=== PATIENT | female | born 1960 | race Caucasian/White ===

== ENCOUNTER → 2018-01-02 09:05 | Outpatient (CLI) | payer MEDICARE, SELFPAY ==
--- NOTE | 2018-01-02 09:08 | XR_ITS ---
XR DEXA axial skeleton HISTORY: ITS.REASON: POST MENOPAUSAL ORDERING PHYSICIAN: Brodie Castro MD PATIENT AGE: 57 years COMPARISON: 07/31/2013 FINDINGS: The BMD measured at the Total left femoral neck is 0.596 g/cm squared with a T score of -3.3. This is considered Osteoporotic according to the World Health Organization criteria. Fracture risk is High. Treatment is advised. The L1 L4 density has a T score of -1.9 and has decreased by 12.5% compared to the previous study. The density of the hips has decreased by 14.5% IMPRESSION: Osteoporosis with high fracture risk. Recommend treatment and follow-up exam December 2018.
== END ==
PROVIDERS: Family Provider Internal Medicine Adolescent Medicine; PCP Internal Medicine Adolescent Medicine; Visit Provider Internal Medicine Adolescent Medicine
DX: Z78.0 Asymptomatic menopausal state (principal); Z13.820 Encounter for screening for osteoporosis
CPT/HCPCS: 77080

== ENCOUNTER → 2018-02-14 16:33 | Outpatient (CLI) | payer MEDICARE, SELFPAY ==
--- NOTE | 2018-02-14 | XR_ITS ---
XR finger LT min 2V CLINICAL INDICATION: Posttraumatic pain ITS.REASON: PAIN ORDERING PHYSICIAN: Brodie Castro MD PATIENT AGE: 57 years Comparison: None FINDINGS: There is an avulsion fracture involving the dorsal and proximal aspect of the distal phalanx of the fourth digit. The fracture fragment measures approximately 3 mm and is displaced dorsally and proximally x 2 mm. IMPRESSION: Mildly displaced avulsion fracture dorsal and proximal aspect of the distal phalanx of the fourth digit
--- NOTE | 2018-02-14 | XR_ITS ---
XR hand LT min 3V HISTORY: ITS.REASON: PAIN ORDERING PHYSICIAN: Brodie Castro MD PATIENT AGE: 57 years COMPARISON: None FINDINGS: There is an avulsion fracture involving the dorsal and proximal aspect of the distal phalanx of the fourth digit. The fracture fragment measures approximately 2.6 mm and is displaced dorsally and proximally x 2 mm. IMPRESSION: Mildly displaced avulsion fracture dorsal and proximal aspect of the distal phalanx of the fourth digit
== END ==
PROVIDERS: PCP Internal Medicine Adolescent Medicine; Visit Provider Internal Medicine Adolescent Medicine
DX: M79.642 Pain in left hand (principal)
CPT/HCPCS: 73130; 73140

== ENCOUNTER → 2018-03-09 13:02 | Outpatient (CLI) | payer MEDICARE, SELFPAY ==
--- NOTE | 2018-03-09 13:05 | XR_ITS ---
XR finger LT min 2V Ordering Physician: Anibal Arteaga MD Patient Age: 57 years: Female HISTORY: ITS.REASON: left ring finger/ XRAYS IN SPLINT!! TECHNIQUE: 3 views left fourth finger COMPARISON February 14, 2018 FINDINGS We again see a fracture off the dorsal proximal corner of the distal phalanx fourth finger. The mild distraction at the fracture zone is less evident on today's study. , As seen on the lateral view. Frontal projection unremarkable. IMPRESSION: . corner fracture from the dorsal proximal corner of the distal phalanx fourth digit is again seen. The Mild distraction appears appears slightly less evident today than previous February 14 study
== END ==
PROVIDERS: PCP Internal Medicine Adolescent Medicine; Visit Provider Orthopaedic Surgery
DX: M20.012 Mallet finger of left finger(s) (principal)
CPT/HCPCS: 73140

== ENCOUNTER → 2018-04-06 13:21 | Outpatient (CLI) | payer MEDICARE, SELFPAY ==
--- NOTE | 2018-04-06 13:27 | MR_ITS ---
MR head/brain wo/w con HISTORY: Follow-up multiple sclerosis ITS.REASON: MULTIPLE SCLEROSIS ORDERING PHYSICIAN: Poly Aguirre PATIENT AGE: 57 years Comparison: 01/30/2014 TECHNIQUE: Standard multiplanar multiecho sequences are performed without and with gadolinium enhancement. FINDINGS: No midline shift, mass effect, intracranial hemorrhage, or hydrocephalus. No evidence of acute infarction. There are multiple T2 white matter hyperintensities in the periventricular and subcortical region some of which are oriented perpendicular to the long axis of the lateral ventricles consistent with demyelinating plaques from multiple sclerosis. There are several foci of increased T2 signal/plaques that have developed in the with interval. New areas of increased periventricular T2 signal are noted along the atria of the lateral ventricles on both sides and in the deep white matter of the left occipital lobe. These areas do not enhance and do not demonstrate restricted diffusion that have developed in the interval. One in the central aspect of the left centrum semiovale measuring 14 mm and one in the anterior aspect of the left centrum semiovale measuring 5 mm. These areas do not demonstrate contrast enhancement or restricted diffusion. A small subcortical T2 white matter hyperintensities present in the left frontal lobe near the vertex not readily apparent on the previous exam. No obvious corpus callosal lesions or mid brain lesions. The upper cervical cord has an unremarkable appearance. Other areas are unchanged. There is a new small rounded area of increased T2 signal in the subcortical region of the left parieto-occipital junction which measures 4 mm. This has mixed signal intensity 2 punctate foci of increased T1 signal and increased T2 signal with a small peripheral rim like area of decreased T2 signal and may represent a small hemorrhagic lesion. This does not demonstrate any contrast enhancement and was not present on the previous exam. This does not have a typical appearance for a demyelinating plaque. No acute infarction. The cerebellopontine angles, cerebellum, and brainstem are unremarkable. No mastoid effusion or sinus air-fluid level. The pituitary has an unremarkable appearance. IMPRESSION: 1. The findings are compatible with multiple sclerosis which has progressed since the previous exam. There are several new plaques which is developed in the interval mainly in the left centrum semiovale and in the periventricular white matter of the occipital lobes and in the deep white matter of the left occipital lobe. These areas do not enhance nor demonstrate restricted diffusion. 2. Unusual 4 mm lesion in the subcortical area of the left parietal occipital temporal junction. Etiology is indeterminate. May be related to a small hemorrhagic lesion. Consider CT scan for further evaluation to determinate there is any calcification at this area. CT angiography may also be of further value is a small aneurysm is a consideration.
== END ==
PROVIDERS: Family Provider Internal Medicine Adolescent Medicine; PCP Internal Medicine Adolescent Medicine; Visit Provider Psychiatry & Neurology Neurology
DX: G35 Multiple sclerosis (principal)
CPT/HCPCS: 70553; A9576

== ENCOUNTER → 2018-04-21 09:42 | Outpatient (CLI) | payer MEDICARE, SELFPAY ==
--- NOTE | 2018-04-21 09:46 | XR_ITS ---
XR finger LT min 2V CLINICAL INDICATION: Follow-up fracture ITS.REASON: LEFT ring finger/ xrays out of splint! ORDERING PHYSICIAN: Anibal Arteaga MD PATIENT AGE: 57 years Comparison: 03/09/2018 FINDINGS: Previously noted avulsion fracture of the proximal and dorsal aspect of the distal phalanx shown healing. Fracture line is not visible on these images. IMPRESSION: Healed avulsion fracture at the distal phalanx of the ring finger with good alignment
== END ==
PROVIDERS: PCP Internal Medicine Adolescent Medicine; Visit Provider Orthopaedic Surgery
DX: M20.012 Mallet finger of left finger(s) (principal)
CPT/HCPCS: 73140

== ENCOUNTER → 2018-04-27 08:20 | Outpatient (CLI) | payer MEDICARE, SELFPAY ==
--- NOTE | 2018-04-27 08:22 | US_ITS ---
US liver HISTORY: ITS.REASON: ELEVATED LIVER ENZYMES ORDERING PHYSICIAN: Brodie Castro MD PATIENT AGE: 57 years COMPARISON: None FINDINGS: PANCREAS:Unremarkable. No obvious mass or abnormal fluid collection. No ductal dilatation LIVER:There is a 2.4 cm cyst involving the left lobe of the liver laterally slightly increased in size previously measuring [address] scan of 06/22/2016. There is appropriate direction of blood flow within the portal vein. No other liver lesions are evident. The portal vein has an unremarkable appearance. No intrahepatic biliary dilatation. Common bile duct is upper normal 6 mm. RIGHT KIDNEY:Unremarkable. Normal size and echogenicity. No hydronephrosis GALLBLADDER:No gallstones, gallbladder wall thickening, pericholecystic fluid, or biliary dilatation. IMPRESSION: Hepatic cyst at 2.4 cm otherwise negative limited abdominal ultrasound
== END ==
PROVIDERS: Family Provider Internal Medicine Adolescent Medicine; PCP Internal Medicine Adolescent Medicine; Visit Provider Internal Medicine Adolescent Medicine
DX: R74.8 Abnormal levels of other serum enzymes (principal)
CPT/HCPCS: 76705

== ENCOUNTER → 2018-05-01 09:03 | Outpatient (CLI) | payer MEDICARE, SELFPAY ==
--- NOTE | 2018-05-01 09:05 | MM_ITS ---
MM Dig screening mamm BI w/CAD CAD Screening COMPARISON: Digital mammograms with CAD 04/25/2017 INDICATION: There is a history of breast cancer patient's paternal cousins and aunts.. The patient has had a previous lumpectomy right breast for malignancy. TECHNIQUE: Standard CC and MLO images were obtained. R2 CAD reviewed. FINDINGS: Prominent heterogenic fibroglandular densities are seen throughout both breast somewhat lessening the sensitivity of mammography. There is minimal architectural distortion central portion of the right breast secondary to previous lumpectomy. There are few benign-appearing calcifications in each breast. There is no suspicious lesion and no suspicious microcalcifications. IMPRESSION: Dense parenchymal pattern with no suspicious lesion seen BI-RADS Category: 2 Benign Finding(s) RECOMMENDED FOLLOW-UP: 1YR - 1 YEAR FOLLOW-UP (A letter has been sent to the patient regarding results of the study.)
== END ==
PROVIDERS: Family Provider Internal Medicine Adolescent Medicine; PCP Internal Medicine Adolescent Medicine; Visit Provider Internal Medicine Adolescent Medicine
DX: Z12.31 Encounter for screening mammogram for malignant neoplasm of breast (principal); N64.4 Mastodynia
CPT/HCPCS: 77067

== ENCOUNTER → 2018-08-10 10:14 | Outpatient (CLI) | payer MEDICARE, SELFPAY ==
--- NOTE | 2018-08-10 10:16 | NM_ITS ---
History and Indications: Chest pain, fatigue, tobacco use. Procedure: Patient exercised on Zach protocol 7 minutes and 30 seconds, resting heart rate was 64 bpm resting blood pressure 117/57, with exercise maximum heart rate achieved was 1 44 bpm which is greater than 85% of the maximum predicted heart rate and a blood pressure was 140/74. Test was started shortness of breath patient denied any complained of chest pain. Patient has good exercise capacity achieved 10.1mets of workload on treadmill, the blood pressure response to exercise was adequate. Electrocardiogram: Resting electrocardiogram showed sinus rhythm, with exercise there is less than 1.[address] segment depression noted from the baseline EKG. The EKG portion of the exercise Myoview is negative for ischemia. Cardiac stress and resting SPECT images: Cardiac stress and resting SPECT images were obtained using technetium 99 Myoview 2.6 mCi stress and 10.0 mCi at rest. Gated SPECT further analysis of segmental wall motion and calculation of ejection fraction also done. Cardiac stress and resting SPECT images show uniform myocardial activity without segmental perfusion abnormality, computer derived ejection fraction is 65% with no regional wall motion abnormality, right ventricle is normal size and contractility. Conclusion: 1. The EKG portion of the exercise Myoview is negative for ischemia, patient has good exercise capacity achieved 10.1mets of workload on treadmill, the blood pressure response to exercise was adequate, there was no exercise-induced chest discomfort. 2. No scintigraphic evidence of reversible ischemia seen at this level of exercise, computer derived ejection fraction is 65% with no regional wall motion abnormality, right ventricle is normal size and contractility. 3. Normal exercise Myoview study.
--- NOTE | 2018-08-10 12:55 | HMH.ITSHM ---
Current Home Medications as stated by this patient Lucille Hernández or workforce services representative. []fluoxetine dimethyl fumarate
== END ==
PROVIDERS: PCP Internal Medicine Adolescent Medicine; Visit Provider Internal Medicine
DX: R06.00 Dyspnea, unspecified (principal); R00.2 Palpitations; R07.2 Precordial pain; R07.9 Chest pain, unspecified
CPT/HCPCS: 78452; 93017; 93306; A9502

== ENCOUNTER → 2018-08-23 12:05 | Outpatient (CLI) | payer MEDICARE, SELFPAY ==
--- NOTE | 2018-08-23 12:08 | XR_ITS ---
XR chest 2V HISTORY: ITS.REASON: chest pain, smoker ORDERING PHYSICIAN: Dina Vallecillo PATIENT AGE: 57 years COMPARISON: 04/23/2015 FINDINGS: The cardiomediastinal silhouette and pulmonary vascularity are within normal limits. There is evidence of old granulomatous disease. Surgical clips are present in the right axilla. There is increased markings in left lung base probably due to vascular rib overlap. No lobar consolidation or collapse.. Hyperinflation consistent with COPD. Degenerative changes are present in thoracic spine with mild wedging of T12 not readily apparent on previous study but does not appear acute.. IMPRESSION: COPD, no acute finding
== END ==
PROVIDERS: PCP Internal Medicine Adolescent Medicine; Visit Provider Urology
DX: F17.200 Nicotine dependence, unspecified, uncomplicated (principal); R00.2 Palpitations; R07.9 Chest pain, unspecified
CPT/HCPCS: 71046

== ENCOUNTER → 2020-03-25 14:50 | Outpatient (CLI) | payer MEDICARE, SELFPAY ==
--- NOTE | 2020-03-25 15:00 | CT_ITS ---
PROCEDURE: CT CHEST WO CON CLINICAL INDICATION: CHEST PAIN ON BREATHING Right anterior rib and chest pain, pain on deep inspiration COMPARISON: CT ABDPELW CT ABD PELVIS W/ CONTRAST from 06/22/[address] CHEST W/ CONTRAST from 06/22/2016 TECHNIQUE: Axial images obtained with sagittal and coronal reformats. All CT scans at the facility use one or more dose reduction, viz: automated exposure control, ma/kV adjustment per patient size (including targeted exams where dose is matched to indication, i.e. head), or iterative reconstruction technique. FINDINGS: HEART AND MEDIASTINAL STRUCTURES: Unremarkable. LUNGS AND PLEURAL SPACES: There is right apical pleural thickening not significantly changed. Minimal scarring also noted in the left apex. COPD with scattered areas of scarring. There is some nodularity noted in the right lung base posteriorly with some minimal bronchial thickening and 5 mm nodular opacity at the end of the bronchial thickening inferiorly. This is nonspecific but slightly more prominent from 06/22/2016 developing nodule is a consideration. Recommend six-month follow-up. This may also be due to an area of fibrosis or atelectatic change.. BONY STRUCTURES: There are degenerative changes in the thoracic spine. There is mild wedging of T12 vertebral body which is developed since the previous exam but does not appear acute. Endplate sclerotic changes with small Schmorl's node is present at this area. There are degenerative changes in the midthoracic spine. UPPER ABDOMEN: Unremarkable. ADDITIONAL FINDINGS: There are surgical clips in the right axilla IMPRESSION: COPD with scattered areas of scarring greatest in the right apex. 5 mm nodular opacity right lower lobe posteriorly. Six-month follow-up suggested. Degenerative changes thoracic spine with mild wedging of T12 which appears chronic but has developed since the previous exam the Dictated b Dann Rose MD 03/26/2020 09:57 Dann Rose MD in [place] 03/26/2020 09:57
--- NOTE | 2020-03-25 15:01 | MM_ITS ---
PROCEDURE: MM DIG SCREENING MAMM BI W/CAD Digital Breast Tomosynthesis Included CLINICAL INDICATION: SCREENING There is a history of breast cancer patient's 3 maternal aunts, 1 paternal aunt and 1 paternal cousin. There has been a previous lumpectomy right breast for malignancy. COMPARISON: [facility] DIG MAMM-SCREEN KAYLIE from 01/15/2016 MG [facility] DIG MAMM-SCREEN KAYLIE W/CAD from 04/25/2017 [facility] MM Dig screening mamm BI w/CAD from 05/01/2018 TECHNIQUE: Standard CC and MLO images and 3D Tomosynthesis was obtained. R2 CAD reviewed. FINDINGS: Prominent and heterogenic fibroglandular densities are seen in the central portions of both breasts. There is mild postlumpectomy scarring subareolar region right breast. There are couple of benign appearing calcifications right breast. There is a collection of microcalcifications upper-outer quadrant left breast some of which were seen previously but there appears to be increase in number of these calcifications. Most likely wrist represents sclerosing adenosis however there is suggestion of architectural distortion as well. Recommended patient return for spot compression magnification views and ultrasound for additional evaluation. IMPRESSION: Dense and heterogenic parenchymal pattern with possible change in collection of microcalcifications left breast and possible architectural distortion BI-RAD Category: 0 Need Additional Imaging Evaluation FOLLOW-UP: IMM Immediate Follow-up Recommended (A letter has been sent to the patient regarding results of the study.) Dictated Dr. Raul Galan MD 03/27/2020 16:46 Dr. Raul Mcgill MD in [place] 03/27/2020 16:46
== END ==
PROVIDERS: PCP Internal Medicine Adolescent Medicine; Visit Provider Nurse Practitioner Family
DX: Z12.31 Encounter for screening mammogram for malignant neoplasm of breast (principal); R07.1 Chest pain on breathing
CPT/HCPCS: 71250; 77063; 77067

== ENCOUNTER → 2020-04-10 13:37 | Outpatient (CLI) | payer MEDICARE, SELFPAY ==
--- NOTE | 2020-04-10 13:41 | MM_ITS ---
PROCEDURE: MM DIG MAMM DX UNILAT LT CAD Digital Breast Tomosynthesis Included CLINICAL INDICATION: ABN MAMM COMPARISON: MG DMSB DIG MAMM-SCREEN KAYLIE W/CAD from 04/25/2017 [facility] MM Dig screening mamm BI w/CAD from 05/01/2018 MG MM DIG SCREENING MAMM BI W/CAD from 03/25/2020 US US BREAST LT COMPLETE from 04/10/2020 TECHNIQUE: Standard CC and MLO images and 3D Tomosynthesis was obtained. R2 CAD reviewed. FINDINGS: Compression magnification views were obtained of the upper-outer quadrant left breast. Scattered microcalcifications are seen along with the area of somewhat asymmetric increased glandular elements. There is no suspicious cluster of microcalcifications and the overall appearance is most suggestive of sclerosing adenosis. Because of the diffuse nature of the scattered microcalcifications of leave this could be followed with a six-month follow-up left mammogram and spot compression views. IMPRESSION: Asymmetric fibroglandular elements and scattered microcalcifications with the overall appearance most consistent with fibrocystic change and sclerosing adenosis BI-RAD Category: 3 Probably Benign Finding Short Term Follow-up FOLLOW-UP: 6M 6Month Follow-up (A letter has been sent to the patient regarding results of the study.) Dictated by: Dr. Raul Mcgill MD 04/15/2020 08:55 Dr. Raul Mcgill MD in [place] 04/15/2020 08:55
--- NOTE | 2020-04-10 13:42 | US_ITS ---
PROCEDURE: US BREAST LT COMPLETE CLINICAL INDICATION: ABN MAMM COMPARISON: US BR US BREAST-RT from 04/20/2013 FINDINGS: There is diffuse overall increased echogenicity in the breast consistent with heterogenic fibroglandular elements seen on the mammogram. There is a tiny hypoechoic cystic lesion at the 2 o'clock position mid breast measuring 0.4 x 0.4 x 0.2 cm. There is a small well-defined oval hypoechoic lesion 2 o'clock but position near the nipple with homogeneous echogenicity and appearance suggest a fibroadenoma. There are no ultrasound findings in the 2 o'clock position to suggest architectural distortion. There couple normal appearing nodes in the axilla. IMPRESSION: Ultrasound findings compatible with heterogenic glandular elements as noted on the mammogram. A follow-up ultrasound left breast could be performed at the time of the six-month follow-up mammogram for continuing evaluation. Dictated by: Dr. Raul Mcgill MD 04/15/2020 08:59 Dr. Raul Mcgill MD in [place] 04/15/2020 08:59
== END ==
PROVIDERS: PCP Internal Medicine Adolescent Medicine; Visit Provider Nurse Practitioner Family
DX: R92.2 Inconclusive mammogram (principal)
CPT/HCPCS: 76641; 77061; 77065; G0279

== ENCOUNTER → 2020-04-14 12:50 | Outpatient (CLI) | payer MEDICARE, SELFPAY ==
--- NOTE | 2020-04-14 12:53 | XR_ITS ---
PROCEDURE: XR DEXA AXIAL SKELETON CLINICAL HISTORY: OSTEOPOROSIS, the patient currently is on calcium and vitamin-D. COMPARISON: CR DEXAAX XR DEXA axial skeleton from 01/02/2018 FINDINGS: The right hip BMD is 0.558 g per cm squared with a T-score of -3.1. The left hip BMD is 0.476 grams/centimeter squared with a T-score of -3.8. The lumbar spine BMD is 0.822 g per cm squared with a T-score of -0.7. IMPRESSION: Slight interval decrease in BMD lumbar spine there is still within normal limits. Interval worsening of both hips both in the osteoporotic range. Based on these results a follow-up exam is recommended in 2 year. Dictated by: Dr. Raul Mcgill MD 04/15/2020 11:12 Dr. Raul Mcgill MD in [place] 04/15/2020 11:12
== END ==
PROVIDERS: PCP Nurse Practitioner Family; Visit Provider Nurse Practitioner Family
DX: R92.8 Other abnormal and inconclusive findings on diagnostic imaging of breast (principal); Z13.820 Encounter for screening for osteoporosis; Z78.0 Asymptomatic menopausal state
CPT/HCPCS: 77080

== ENCOUNTER → 2020-11-20 13:43 | Outpatient (CLI) | payer MEDICARE, SELFPAY ==
--- NOTE | 2020-11-20 13:46 | US_ITS ---
PROCEDURE: US BREAST LT COMPLETE CLINICAL INDICATION: ABN MAMM COMPARISON: US US BREAST LT COMPLETE from 04/10/2020 FINDINGS: Diffuse heterogenic echogenicity is seen as noted previously. There is a fairly well-defined hypoechoic oval lesion 2 o'clock position outer breast with a hyperechoic center measuring 0.7 x 0.5 0.9 cm this has the appearance of intramammary node. There is a tiny 2-3 mm cystic lesion 2 o'clock position mid breast. Additional normal appearing nodes are seen in the axilla. There is no suspicious cystic or solid lesion identified. IMPRESSION: Basically stable targeted ultrasound left breast and recommend the patient return to normal yearly screening mammography Dictated by: Dr. Raul Mcgill MD 11/28/2020 07:58 Dr. Raul Mcgill MD in [place] 11/28/2020 07:58
--- NOTE | 2020-11-20 13:46 | MM_ITS ---
PROCEDURE: MM DIG MAMM DX UNILAT LT CAD Digital Breast Tomosynthesis Included CLINICAL INDICATION: ABN MAMM COMPARISON: [facility] MM Dig screening mamm BI w/CAD from 05/01/2018 MG MM DIG SCREENING MAMM BI W/CAD from 03/25/2020 MG MM DIG MAMM DX UNILAT LT CAD from 04/10/2020 US US BREAST LT COMPLETE from 04/10/2020 US US BREAST LT COMPLETE from 11/20/2020 TECHNIQUE: Spot compression MLO and CC views were performed. FINDINGS: Again noted is a diffusely dense and heterogenic parenchymal pattern lessening the sensitivity mammography. Having the previous study and fernanda images 04/10/2020 is most helpful and feel there has been node significant interval change. Diffuse scattered microcalcifications are again seen most typical of sclerosing adenosis. There is no suspicious cluster of microcalcifications. There is no obvious architectural distortion. Ultrasound performed the same date shows diffuse heterogenic echogenicity with a probable small fibroadenoma and or intramammary node but no suspicious cystic or solid lesion is identified. IMPRESSION: Stable diffusely dense and heterogenic parenchymal pattern with diffuse microcalcifications most typical of sclerosing adenosis. There has been no significant interval change from the previous study and feel the patient can return to normal yearly screening mammography at this time. BI-RAD Category: 2 Benign Finding(s) FOLLOW-UP: 6M 6Month Follow-up to return to normal yearly screening schedule (A letter has been sent to the patient regarding results of the study.) Dictated by: Dr. Raul Mcgill MD 11/28/2020 07:55 Dr. Raul Mcgill MD in [place] 11/28/2020 07:55
== END ==
PROVIDERS: PCP Nurse Practitioner Family; Visit Provider Nurse Practitioner Family
DX: R92.2 Inconclusive mammogram (principal)
CPT/HCPCS: 76641; 77061; 77065; G0279

== ENCOUNTER → 2021-03-12 15:10 | Outpatient (CLI) | payer MEDICARE, SELFPAY ==
--- NOTE | 2021-03-12 15:11 | MR_ITS ---
PROCEDURE: MR HEAD/BRAIN WO CON CLINICAL INDICATION: MULTIPLE SCLEROSIS Hx of MS. Headaches that start behind lt eye. Visual changes in rt eye. COMPARISON: MR BRAINWW MR head/brain wo/w con from 04/06/2018 TECHNIQUE: Routine multiplanar multi echo sequences are performed without gadolinium enhancement. DIR 3D images also performed. FINDINGS: No midline shift or mass effect. No evidence of acute infarction. The cerebellopontine angles, cerebellum, and brainstem have an unremarkable appearance. The pituitary, optic chiasm, and craniocervical junction appear unremarkable. Numerous T2 white matter hyperintensities are present in the periventricular region some of which are oriented tangential to the long axis of the ventricles/Tsang fingers consistent with multiple sclerosis. At least 1 of these areas is somewhat more prominent noted in the left centrum semiovale at the parietal frontal junction.. This area also shows some decreased T1 signal centrally consistent with small area of developing cystic encephalomalacia. Other smaller areas of T2 hyperintensity also demonstrate some cystic changes centrally. T2 hyperintensity noted along the right parietal occipital junction show some slight increase in T2 signal. No abnormal signal evident within the corpus callosum, hansel, or cerebellum. The corpus callosum has a somewhat irregular margin. There is a small complex area of signal intensity in the left posterior parietal lobe. This area measures approximately 5 mm and demonstrates small foci of increased T1 signal. There is a small peripheral rim of decreased T2 signal with slight increased T2 signal centrally. This is consistent with a small cavernous hemangioma No mastoid effusion or sinus air-fluid level. The orbits have an unremarkable appearance. IMPRESSION: 1. Findings compatible with multiple sclerosis. The findings have slightly progressed compared to the previous exam 2. No change in the small lesion in the left parietal lobe suggesting a small cavernous hemangioma. Dictated by: Dann Rose MD 03/13/2021 07:59 Dann Rose MD in [place] 03/13/2021 07:59
== END ==
PROVIDERS: PCP Nurse Practitioner Family; Visit Provider Nurse Practitioner Family
DX: G35 Multiple sclerosis (principal)
CPT/HCPCS: 70551

== ENCOUNTER 2021-04-15 09:46 | Emergency (ER) | payer MEDICARE, SELFPAY ==
[2021-04-15 09:47] VITALS: BP 108/60; PULSE 81; RESP 16; TEMP 36.6; O2SAT 95; BMI 20.1
--- NOTE | 2021-04-15 10:12 | XR_ITS ---
PROCEDURE: XR CHEST 2V CLINICAL HISTORY: cough, covid 19 COMPARISON: CR CXR CHEST(2 VIEWS-NOT PORTABLE) from 07/11/2013 CR CXR CHEST(2 VIEWS-NOT PORTABLE) from 04/23/2015 CR CXR2V XR chest 2V from 08/23/[address] CHEST WO CON from 03/25/2020 FINDINGS: The cardiomediastinal silhouette and pulmonary vascularity are within normal limits. The lungs are clear without infiltrates, suspicious nodules, or pleural effusions. Surgical clips are present in the right axilla. Right breast is smaller than the left consistent with prior breast surgery. Calcified azygos lymph node. Degenerative changes of the thoracic spine with mild kyphosis IMPRESSION: No acute findings. Dictated by: Dann Rose MD 04/15/2021 10:47 Dann Rose MD in [place] 04/15/2021 10:47
--- NOTE | 2021-04-15 10:12 | XR_ITS ---
PROCEDURE: XR RIBS RT 2V CLINICAL INDICATION: cough, concern for right rib fracture COMPARISON: No exams were available for comparison FINDINGS: No displaced fracture apparent. No lytic or blastic change. Prior right breast and axillary surgery. IMPRESSION: No acute findings. Dictated by: Dann Rose MD 04/15/2021 10:48 Dann Rose MD in [place] 04/15/2021 10:48
--- NOTE | 2021-04-15 10:23 | HMH.EDGENADL ---
ED Disposition Clinical Impression: Right-sided chest wall pain Disposition: Home, Self-Care Condition on Discharge: Good Referrals: Selena Prasad [Primary Care Provider] - - Critical Care Critical Care Time: No Attestation: On , the high probability of a clinically significant, sudden or life threatening deterioration of the following system(s) required my full and direct attention, intervention and personal management. The time I documented below is in addition to time spent performing reported procedures but includes the following listed in this critical care notation. Medical Decision Making - Medical Records Medical records reviewed: Yes: I reviewed the patient's medical records. - Scott Inquiry Pt receiving controlled substance: No Vital Signs: 04/15/21 09:47 Temperature 97.9 F Temperature Source Oral Pulse Rate [Right Brachial] 81 Respiratory Rate 16 Blood Pressure [Right Arm] 108/60 L Blood Pressure Mean [Right Arm] 76 Blood Pressure Source [Right Arm] Automatic Cuff Blood Pressure Position [Right Arm] Standing 02 Sat by Pulse Oximetry 95 Oxygen Delivery Method Room Air Medical Decision Narrative: Patient is a 60-year-old female presents the ED today for further evaluation of right-sided chest wall pain. Differential diagnosis includes musculoskeletal pain, pulmonary believes him, rib fracture, traumatic pain to the chest, pneumothorax. Will obtain chest x-ray With a rib view to further evaluate for rib fracture, pneumothorax, if negative likely musculoskeletal pain. Patient's oxygen saturation is normal without evidence of hypoxia no tachycardia is low risk for PE. X-rays do not show fracture on independent interpretation, patient can be discharged home at this time to follow-up with PCP. Patient briefed on return precautions return to the ED with any new or worsening symptoms and is verbalized understanding with this plan. General Adult HPI - General Chief complaint: PAIN Stated complaint: covid+, rt rib pain Time Seen by Provider: 04/15/21 10:00 Mode of Arrival: Ambulatory Limitations: No Limitations Description of Symptoms (Recalled from ER Triage Doc. by RN): Pt states that she tested positive for covid x1 week ago. Pt c/o rt rib pain r/t coughing - History of Present Illness HPI narrative: 60-year-old female presents the ED today for further evaluation of right-sided rib pain which she sustained while coughing. Patient has recent diagnosis of COVID-19, states that his been coughing a lot at home, and states that she has caused her to have some right-sided pain. States she wants to be evaluated for fracture. Patient's been otherwise well, not significantly short of breath, not hypoxic in triage, states that she has otherwise been able to accomplish her own activities of daily living. - Related Data Home Medications Medication Instructions Recorded Confirmed Fluoxetine HCl 40 mg PO DAILY 01/26/18 09/06/18 dimethyl fumarate 240 mg 240 mg PO BID 08/01/18 09/06/18 capsule,delayed release Previous Rx's Medication Instructions Recorded isosorbide mononitrate 30 mg 30 mg PO DAILY #30 tab 08/23/18 tablet,extended release 24 hr ranolazine 500 mg tablet,extended 500 mg PO BID #60 tab 09/06/18 release,12 hr Allergies Allergy/AdvReac Type Severity Reaction Status Date / Time clarithromycin [From BIAXIN] Allergy Intermediate I-RASH Verified 09/06/18 11:30 erythromycin base Allergy Intermediate I-RASH Verified 09/06/18 11:30 [ERYTHROMYCIN BASE] codeine [CODEINE] Allergy Unknown NA-NAUSEA Verified 09/06/18 11:30 Penicillins [PENICILLINS] Allergy Unknown NA-NAUSEA Verified 09/06/18 11:30 [facility] History - Hepatitis A Screen Drug use history?: No High risk sexual behaviors?: No History of sexually transmitted infection?: No Currently employed?: No Childcare worker?: No Do you have indoor plumbing?: Yes Do you have electricity?: Yes Attestation statement::
[2021-04-15 14:23] VITALS: BP 118/69; PULSE 68; RESP 14; TEMP 36.7; O2SAT 98
== END 2021-04-15 14:24 | disposition home or self-care (01) ==
PROVIDERS: Emergency Provider Student in an Organized Health Care Education/Training Program; PCP Nurse Practitioner Family
DX: R07.89 Other chest pain (principal); U07.1 COVID-19; R05 Cough; Z88.0 Allergy status to penicillin; Z88.1 Allergy status to other antibiotic agents; Z88.6 Allergy status to analgesic agent; Z79.899 Other long term (current) drug therapy
CPT/HCPCS: 71046; 71100; 99282

== ENCOUNTER → 2022-09-09 07:18 | Outpatient (CLI) | payer MEDICARE, SELFPAY | PROVIDERS: PCP Nurse Practitioner Family; Visit Provider Nurse Practitioner Family | DX: J02.9 Acute pharyngitis, unspecified (principal) | CPT/HCPCS: 87070 ==

== ENCOUNTER → 2022-09-14 12:00 | Outpatient (CLI) | payer MEDICARE, SELFPAY ==
[2022-09-14 16:54] LABS: Alanine Aminotransferase 32 U/L (12-78); Albumin Level 4.9 g/dl (3.5-5.0); Albumin/Globulin Ratio 1.8 (1.1-1.8); Alkaline Phosphatase 115 U/L (38-126); Anion Gap 12.6 mEq/L (5-15); Aspartate Amino Transferase 35 U/L (14-36); Bilirubin,Total 0.3 mg/dl (0.2-1.3); Blood Urea Nitrogen 14 mg/dl (7-17); Calcium 9.6 mg/dl (8.4-10.2); Carbon Dioxide 31 mmol/L (22.0-30.0); Chloride 104 mmol/L (98-107); Estimated Glomerular Filt Rate 85 ml/min (>60); GFR (African American) 103 ML/MIN (>60); Globulin 2.7 g/dL (1.3-3.2); Glucose 86 mg/dl (74-100); Potassium 4.6 mmoL/L (3.5-5.1); Sodium 143 mmol/L (136-145); Total Protein,Serum 7.6 g/dl (6.3-8.2)
[2022-09-14 17:44] LABS: Vitamin B12 222 pg/mL (239-931)
[2022-09-14 17:54] LABS: Basophils # 0.1 K/mm3 (0-0.2); Basophils % 1.8 % (0.1-2.0); Eosinophils # 0.1 K/mm3 (0.0-0.4); Eosinophils % 1.1 % (0.1-12.0); Hematocrit 46.3 % (37.0-47.0); Hemoglobin 14.8 g/dL (12.2-16.2); Lymphocytes # 2.7 K/mm3 (0.7-4.5); Lymphocytes % 35.9 % (10-50); Mean Corpuscular Hemoglobin 30.8 pg (27.0-31.2); Mean Corpuscular Volume 96.5 fl (81-99); Mean Platelet Volume 9.4 fl (7.4-10.4); Monocytes # 0.4 K/mm3 (0.1-1.0); Monocytes % 5.6 % (1.7-9.3); Neutrophils # 4.3 K/mm3 (1.8-7.8); Neutrophils % 55.6 % (37.0-80.0); Platelet Count 396 K/mm3 (142-424); Red Cell Distribution Width 12.7 % (11.5-17.5); White Blood Count 7.7 K/mm3 (4.8-10.8)
== END ==
PROVIDERS: PCP Family Medicine; Visit Provider Family Medicine
DX: I10 Essential (primary) hypertension (principal); E53.8 Deficiency of other specified B group vitamins; R53.83 Other fatigue
CPT/HCPCS: 80053; 82607; 84443; 85025

== ENCOUNTER → 2022-09-28 10:18 | Outpatient (CLI) | payer MEDICARE, SELFPAY ==
--- NOTE | 2022-09-28 10:18 | MM_ITS ---
PROCEDURE INFORMATION: Exam: MG Bilateral Screening 3D Mammography Exam date and time: 09/28/2022 10:12 AM Age: 62 years old Clinical indication: Screening. Paternal aunt, paternal cousin, and 2 maternal aunts had breast cancer. TECHNIQUE: Imaging protocol: Bilateral Screening tomosynthesis and 2D mammography including computer-aided detection (CAD) when performed. COMPARISON: 1. MG MM DIG MAMM DX UNILAT LT CAD 11/20/2020 2:01 PM 2. MG MM DIG MAMM DX UNILAT LT CAD 04/10/2020 1:45 PM 3. MG MM DIG SCREENING MAMM BI W/CAD 03/25/2020 3:37 PM 4. MG SCBI MM Dig screening mamm BI w/CAD 05/01/2018 9:44 AM MG DMSB DIG MAMM-SCREEN KAYLIE W/CAD 04/25/2017 9:25 AM MG DMSB DIG MAMM-SCREEN KAYLIE 01/15/2016 10:01 AM MG DMSB DIG MAMM-SCREEN KAYLIE 01/13/2015 3:02 PM MG DMDB DIG MAMM-DX KAYLIE 11/15/2013 2:10 PM FINDINGS: MAMMOGRAPHY: Breast composition: The breasts are heterogeneously dense, which may obscure small masses. Mass: None. Architectural distortion: Stable focal asymmetry and architectural distortion right 6 o'clock anterior middle 3rd, since 11/15/2013. Calcifications: No suspicious calcifications. Asymmetric density: See above Skin thickening: None. Axillary adenopathy: None. IMPRESSION: Stable focal asymmetry in the right breast at 6 o'clock, clinical correlation to this region is recommended and if negative clinically, annual screening is recommended. ASSESSMENT: BI-RADS Category 2: Benign
== END ==
PROVIDERS: PCP Family Medicine; Visit Provider Nurse Practitioner Family
DX: Z12.31 Encounter for screening mammogram for malignant neoplasm of breast (principal)
CPT/HCPCS: 77063; 77067

== ENCOUNTER → 2022-10-25 07:52 | Outpatient (CLI) | payer MEDICARE, SELFPAY ==
[2022-10-25 08:22] LABS: Blood Urea Nitrogen 12 mg/dl (7-17); Estimated Glomerular Filt Rate 102 ml/min (>60); GFR (African American) 123 ML/MIN (>60)
--- NOTE | 2022-10-25 08:50 | MR_ITS ---
FINAL REPORT CLINICAL HISTORY: HISTORY MS AND BREAST CANCER. WORSENING HEADACHE. BLURRED VISION COMPARISON: 03/12/2021 FINDINGS: Multiplanar MR imaging of the brain was performed without and with contrast. Again seen are multiple foci of increased T2 signal in the cerebral white matter consistent with patient history of multiple sclerosis. These are overall visually stable. No new abnormality is seen. There is no evidence of intracranial hemorrhage or mass. No abnormal extra-axial fluid collection is seen. The ventricular size is within normal limits. There is no evidence of shift of the midline structures. The posterior fossa and brainstem have an unremarkable appearance. No area of abnormal restricted diffusion is identified. No abnormal contrast enhancement is seen. Normal major vessel vascular flow voids are noted. IMPRESSION: Stable foci of increased T2 signal in the cerebral white matter consistent with patient history of MS. Reviewed, Interpreted and Dictated by Raul Bellamy III, MD Transcribed by Veronica De Authenticated and [facility]
== END ==
PROVIDERS: PCP Family Medicine; Visit Provider Nurse Practitioner Family
DX: G35 Multiple sclerosis (principal); R41.3 Other amnesia; R56.9 Unspecified convulsions
CPT/HCPCS: 36415; 70553; 82565; 84520; A9576

== ENCOUNTER → 2022-11-03 14:26 | Outpatient (CLI) | payer MEDICARE, SELFPAY | PROVIDERS: PCP Family Medicine; Visit Provider Nurse Practitioner Family | DX: G35 Multiple sclerosis (principal) | CPT/HCPCS: 36415 ==

== ENCOUNTER 2023-02-08 08:34 | Day surgery (SDC) | payer MEDICARE, SELFPAY ==
[2023-02-08] VITALS (7 sets, daily range): BP systolic 102–116; BP diastolic 61–68; PULSE 54–65; RESP 16–18; TEMP 36.6–36.7; O2SAT 96–100; BMI 22.8
== END 2023-02-08 12:00 | disposition home or self-care (01) ==
PROVIDERS: PCP Family Medicine; Visit Provider Ophthalmology
DX: H25.811 Combined forms of age-related cataract, right eye (principal)
CPT/HCPCS: 66984; V2632

== ENCOUNTER 2023-02-22 08:06 | Day surgery (SDC) | payer MEDICARE, SELFPAY ==
[2023-02-22 08:51] VITALS: BP 110/63; PULSE 63; RESP 18; TEMP 36.2; O2SAT 98; BMI 22.3
[2023-02-22 09:35] VITALS: BP 117/56; PULSE 58; RESP 18; O2SAT 97
[2023-02-22 09:45] VITALS: BP 109/63; PULSE 57; RESP 18; O2SAT 100
[2023-02-22 09:50] VITALS: BP 108/63; PULSE 59; RESP 18; O2SAT 100
[2023-02-22 09:55] VITALS: BP 107/64; PULSE 59; RESP 16; O2SAT 100
[2023-02-22 10:04] VITALS: BP 110/65; PULSE 65; RESP 16; TEMP 36.3; O2SAT 100
== END 2023-02-22 10:20 | disposition home or self-care (01) ==
PROVIDERS: PCP Family Medicine; Visit Provider Ophthalmology
DX: H25.812 Combined forms of age-related cataract, left eye (principal)
CPT/HCPCS: 66984; V2632

== ENCOUNTER 2023-05-10 14:31 | Outpatient (CLI) | payer MEDICARE, SELFPAY ==
[2023-05-10 15:19] VITALS: BP 101/79; PULSE 72; RESP 18; O2SAT 98
[2023-05-10 15:58] VITALS: BP 117/66; PULSE 70; RESP 18
== END 2023-05-10 15:58 | disposition home or self-care (01) ==
LOC: INF 14:32
PROVIDERS: PCP Family Medicine; Visit Provider Family Medicine
DX: G35 Multiple sclerosis (principal)
CPT/HCPCS: 96365

== ENCOUNTER 2023-05-11 14:32 | Outpatient (CLI) | payer MEDICARE, SELFPAY ==
[2023-05-11 14:53] VITALS: BP 102/61; PULSE 72; RESP 18; O2SAT 96
[2023-05-11] MEDS: SODIUM CHLORIDE 0.9% 50ML BAG 50 ML IV (14:53)
[2023-05-11] MEDS: METHYLPREDN SOD SUCC 1,000 MG in 0.9 % SODIUM CHLORIDE 250 ML 500 MG IV (14:53)
[2023-05-11 15:34] VITALS: BP 105/60; PULSE 67; RESP 18; O2SAT 96
== END 2023-05-11 15:34 | disposition home or self-care (01) ==
LOC: INF 14:33
PROVIDERS: PCP Family Medicine; Visit Provider Nurse Practitioner Family
DX: G35 Multiple sclerosis (principal)
CPT/HCPCS: 96365

== ENCOUNTER 2023-05-12 14:23 | Outpatient (CLI) | payer MEDICARE, SELFPAY ==
[2023-05-12 14:42] VITALS: BP 113/61; PULSE 65; RESP 18; TEMP 36.8; O2SAT 98
[2023-05-12 15:25] VITALS: BP 111/57; PULSE 71; RESP 18; O2SAT 98
== END 2023-05-12 15:25 | disposition home or self-care (01) ==
LOC: INF 14:24
PROVIDERS: PCP Family Medicine; Visit Provider Nurse Practitioner Family
DX: G35 Multiple sclerosis (principal); E86.0 Dehydration
CPT/HCPCS: 96365

== ENCOUNTER 2023-09-15 08:06 | Outpatient (CLI) | payer MEDICARE, SELFPAY ==
[2023-09-15] VITALS (10 sets, daily range): BP systolic 96–111; BP diastolic 54–69; PULSE 65–72; RESP 18; TEMP 36.6–36.7; O2SAT 97–98
[2023-09-15] MEDS: METHYLPREDNISOLONE SOD SUCC 125MG VIAL 125 MG IV (08:29)
[2023-09-15] MEDS: ACETAMINOPHEN 325MG TAB 650 MG PO (08:30)
[2023-09-15] MEDS: diphenhydrAMINE 50MG CAPSULE 50 MG PO (08:30)
[2023-09-15] MEDS: SODIUM CHLORIDE 0.9% 50ML BAG 50 ML IV (08:30)
[2023-09-15] MEDS: SODIUM CHLORIDE 0.9% IV (08:54)
[2023-09-15] MEDS: UBLITUXIMAB XIIY IV (08:54)
== END 2023-09-15 14:10 | disposition home or self-care (01) ==
LOC: INF 08:07
PROVIDERS: PCP Family Medicine; Visit Provider Psychiatry & Neurology Neurology
DX: G35 Multiple sclerosis (principal)
CPT/HCPCS: 96413; 96415; J2329

== ENCOUNTER 2023-09-27 08:20 | Outpatient (CLI) | payer MEDICARE, SELFPAY ==
[2023-09-27] VITALS (12 sets, daily range): BP systolic 98–124; BP diastolic 53–63; PULSE 62–71; RESP 14–20; TEMP 36.8–36.9; O2SAT 98–99
[2023-09-27] MEDS: ACETAMINOPHEN 325MG TAB 650 MG PO (08:42)
[2023-09-27] MEDS: diphenhydrAMINE 50MG CAPSULE 50 MG PO (08:42)
[2023-09-27] MEDS: METHYLPREDNISOLONE SOD SUCC 125MG VIAL 125 MG IV (08:43)
[2023-09-27] MEDS: SODIUM CHLORIDE 0.9% 50ML BAG 50 ML IV (08:56)
[2023-09-27] MEDS: SODIUM CHLORIDE 0.9% IV (09:10)
[2023-09-27] MEDS: UBLITUXIMAB XIIY IV (09:10)
== END 2023-09-27 12:45 | disposition home or self-care (01) ==
LOC: INF 08:22
PROVIDERS: PCP Family Medicine; Visit Provider Psychiatry & Neurology Neurology
DX: G35 Multiple sclerosis (principal)
CPT/HCPCS: 96365; 96366; 96413; 96415; J2329

== ENCOUNTER 2023-11-05 21:35 | Emergency (ER) | payer MEDICARE, SELFPAY ==
[2023-11-05 21:44] VITALS: BP 125/65; PULSE 94; RESP 20; TEMP 36.9; O2SAT 95; BMI 990.9
--- NOTE | 2023-11-05 21:47 | XR_ITS ---
PROCEDURE INFORMATION: Exam: XR Chest Exam date and time: 11/05/2023 9:46 PM Age: 63 years old Clinical indication: Cough TECHNIQUE: Imaging protocol: Radiologic exam of the chest. Views: 2 views. Total images: 2 COMPARISON: CR XR CHEST 2V 04/15/2021 10:23 AM FINDINGS: Tubes, catheters and devices: EKG leads are present. Lungs: Clear and well expanded. Suspect underlying emphysema/COPD with flattening of the hemidiaphragms. No airspace consolidation, vascular congestion, or interstitial edema. Pleural spaces: Right apical pleural thickening/scarring. No pleural effusion. No pneumothorax. Chronic blunting of the posterior costophrenic angles compatible with pleural thickening. Heart/Mediastinum: Calcified mediastinal lymph nodes compatible with remote granulomatous disease. Bones/joints: Mild osteopenia. Moderate degenerative changes thoracic spine. Soft tissues: Stable right breast asymmetry likely from postoperative change. Surgical clips right axilla. IMPRESSION: 1. No radiographically acute cardiopulmonary process. 2. Stable chronic findings.
--- NOTE | 2023-11-05 21:48 | ECG_ITS ---
APPROVED REPORT Exam: Resting ECG HR:88 bpm ECG Measurements Heart Rate 88 AXES NM 126 P 37 QRSd 79 QRS 34 QT 352 T 29 QTc 398 Critical Notification Critical Value: No Conclusion SINUS RHYTHM NORMAL ECG Electronically signed by : WILL WHITMAN, 11/06/2023 01:43:56
--- NOTE | 2023-11-05 21:59 | PC.NURSE ---
patient back from CT
[2023-11-05 22:00] VITALS: BP 117/60; PULSE 98; RESP 22; O2SAT 94
[2023-11-05 22:26] LABS: Coronavirus 19, PCR Not Detected (NotDetected); Influenza A, PCR Not Detected (NotDetected); Influenza B, PCR Not Detected (NotDetected)
[2023-11-05 22:28] LABS: Chloride 105 mmol/L (98-107)
[2023-11-05 22:29] LABS: Potassium 3.6 mmoL/L (3.5-5.1); Sodium 136 mmol/L (136-145)
[2023-11-05 22:31] VITALS: BP 101/51; PULSE 84; RESP 25; O2SAT 94
[2023-11-05 22:31] LABS: Alanine Aminotransferase 35 U/L (12-78); Anion Gap 7.6 mEq/L (5-15); Aspartate Amino Transferase 50 U/L (14-36); Basophils # 0.1 K/mm3 (0-0.2); Basophils % 0.8 % (0.1-2.0); Blood Urea Nitrogen 14 mg/dl (7-17); Carbon Dioxide 27 mmol/L (22.0-30.0); Creatinine Clearance Estimated 55 mL/min (50-200); Eosinophils # 0.1 K/mm3 (0.0-0.4); Eosinophils % 0.8 % (0.1-12.0); Estimated Glomerular Filt Rate 85 ml/min (>60); GFR (African American) 103 ML/MIN (>60); Hematocrit 42.2 % (37.0-47.0); Hemoglobin 14.2 g/dL (12.2-16.2); Lymphocytes # 1.1 K/mm3 (0.7-4.5); Lymphocytes % 7.9 % (10-50); Mean Corpuscular HGB Conc 33.6 g/dL (31.8-35.4); Mean Corpuscular Hemoglobin 32.2 pg (27.0-31.2); Mean Corpuscular Volume 95.9 fl (81-99); Mean Platelet Volume 7.8 fl (7.4-10.4); Monocytes # 0.9 K/mm3 (0.1-1.0); Monocytes % 6.6 % (1.7-9.3); Neutrophils # 11.5 K/mm3 (1.8-7.8); Platelet Count 311 K/mm3 (142-424); Red Cell Distribution Width 13.3 % (11.5-17.5); White Blood Count 13.6 K/mm3 (4.8-10.8)
[2023-11-05 22:32] LABS: Albumin Level 4.1 g/dl (3.5-5.0); Albumin/Globulin Ratio 1.4 (1.1-1.8); Alkaline Phosphatase 122 U/L (38-126); Bilirubin,Total 0.4 mg/dl (0.2-1.3); Calcium 9.1 mg/dl (8.4-10.2); Globulin 2.9 g/dL (1.3-3.2); Glucose 122 mg/dl (74-100)
[2023-11-05 22:47] LABS: Troponin I < 0.01 ng/ml (0.00-0.034)
[2023-11-05 23:00] VITALS: BP 116/64; PULSE 82; RESP 27; O2SAT 93
--- NOTE | 2023-11-05 23:12 | HMH.EDGENADL ---
Discharge Plan Disposition Patient Disposition: Home, Self-Care Prescriptions Prescriptions: New kzdsnpuuunsukpi-epkzytsqi-[id number] [Bromfed DM] 2-30-10 mg/5 mL syrup 5 ml PO Q6H PRN (Reason: cold symptoms) Qty: 118 0RF No Action Vraylar 1.5 mg capsule 1.5 mg PO DAILY Qty: 90 0RF acetaminophen [Tylenol] 325 mg tablet 650 mg PO QID PRN (Reason: pain) Qty: 120 0RF fluoxetine 40 mg capsule See Rx Instructions .ROUTE .COMPLEX Qty: 90 0RF Rx Instructions: TAKE 1 CAPSULE BY MOUTH ONCE DAILY FOR MOOD sulfamethoxazole-trimethoprim 800-160 mg tablet 1 tab PO BID Qty: 20 0RF cyanocobalamin (vitamin B-12) 1,000 mcg/mL kit 100 mcg SQ QMONTH Rx Instructions: Pt is to take 1 injection x4 weeks then monthly sumatriptan succinate 100 mg tablet 100 mg PO NEEDED PRN (Reason: migraines) ibuprofen 800 mg tablet 800 mg PO Q8H Referrals Follow up/Referrals: Mickey Maldonado MD [Primary Care Provider] - See instructions Activity Restrictions/Add. Instructions Additional Instructions/Restrictions: At this time it was felt you are safe to be discharged home. If new or worsening symptoms please do not hesitate to return the emergency department. If symptoms persist please follow-up with your family doctor as you are able. Please take antibiotics as they were prescribed and apply 2 drops of neomycin and polymyxin in each eye every 4 hours for 7 days. Clinical Impressions Clinical Impression: Conjunctivitis, Acute left otitis media, Acute viral syndrome Discharge ED Provider: Josiah Fraire General Adult HPI General Chief complaint: Ear Stated complaint: diff breathing, fever, cough Time Seen by Provider: 11/05/23 21:48 Mode of Arrival: Ambulatory Source of Information: Patient Limitations: No Limitations Description of Symptoms (Recalled from ER Triage Doc. by RN): Pt states she was seen by PCP on tuesday and was dx with URI and left ear infection and prescribed bactrim. Pt c/o hearing loss in left ear today, pus coming from bilat eyes, intermittent SOA and chest pain. History of Present Illness HPI narrative: Patient is a 63-year-old female with past medical history of MS who presents emergency department for evaluation of ear pain, decreased hearing in the left, cough, eye drainage. Patient has had symptoms of cough, congestion since Tuesday, eye drainage over the last 2 days. She was diagnosed with otitis on the left and given a prescription for Bactrim given her allergy to penicillins. Patient did have associated chest pain with cough this morning that has resolved. Due to persistent symptoms she presents here for continued evaluation. Related Data Home Medications Medication Instructions Recorded Confirmed cyanocobalamin (vitamin B-12) 100 mcg SQ QMONTH Supplement 03/08/23 11/02/23 1,000 mcg/mL injection kit ibuprofen 800 mg tablet 800 mg PO Q8H Pain 05/12/23 11/02/23 sumatriptan succinate 100 mg tablet 100 mg PO NEEDED PRN migraines 05/12/23 11/02/23 Previous Rx's Medication Instructions Recorded acetaminophen 325 mg tablet 650 mg (2 x 325 mg) PO QID PRN 03/03/23 (Tylenol) pain #120 tabs cariprazine 1.5 mg capsule 1.5 mg PO DAILY mood #90 caps 08/18/23 (Vraylar) fluoxetine 40 mg capsule See Rx Instructions .Route 11/02/23 .COMPLEX Depression #90 caps sulfamethoxazole 800 1 tab PO BID #20 tabs 11/02/23 mg-trimethoprim 160 mg tablet zjgojgusorgwtei-ccrkybeqwlarvyz-WN 5 ml PO Q6H PRN cold symptoms #118 11/05/23 2 mg-30 mg-10 mg/5 mL oral syrup mL (Bromfed DM) Allergies Allergy/AdvReac Type Severity Reaction Status Date / Time clarithromycin [From BIAXIN] Allergy Intermediate I-RASH Verified 11/02/23 13:35 erythromycin base Allergy Intermediate I-RASH Verified 11/02/23 13:35 [ERYTHROMYCIN BASE] codeine [CODEINE] Allergy Unknown NA-NAUSEA Verified 11/02/23 13:35 Penicillins [PENICILLINS] Allergy Unknown NA-NAUSEA Verified 11/02/23 13:35 [facility] Disclaimer: The information contained in this section may have been updated after the patient was seen, as this information can be updated by other users. Medical History Generalized anxiety disorder Recurrent major depression resistant to treatment Seizures Precipitated by blood harrell, described as alteration in awareness, confusion, hallucinations in the setting of abnormal EEG, brain MRI. Currently asymptomatic since sometime in 2021. Multiple sclerosis Relapsing remitting MS diagnosed 11/2011 with probable onset 2006. Abnormal MRI, LP with OCPs greater than 5 present in CSF not serum, clinical presentation. Prior evaluation by Dr. Shine Tapia and Poly Aguirre. Current Brain MRI shows extensive white matter changes, stable since 2020 but with new complaints of memory loss. Labs for MS mimickers noncontributory. Referral to MS clinic still pending scheduling for now patient has no transportation to [place] and requests [facility]. Vitamin B12 deficiency Breast cancer SOB (shortness of breath) CODI (obstructive sleep apnea) Tobacco abuse Half a pack per day Chest pain Surgical History History of tonsillectomy H/O lumpectomy Family History Father Cancer Grandfather , paternal FHx: mental illness completed suicide by drowning. -he was sick; had been complaining of side pain -they sent him to [facility] for a while -the day of discharge he completed suicide Social History Smoking Status: Current every day smoker tobacco type: cigarettes second hand exposure: No alcohol intake: never counseling given: No substance use type: denies use counseling given: No current occupational status: employed and other details: works at [employer] in the last 8 weeks: None adopted: No caregiver/support person: No foster care: No household members: none housing: other details: mobile home lives independently: Yes marital status: single number of children: 0 number of grandchildren: 0 education level: high school current occupation: at [employer] pets and animals: Yes pets and animals: cat(s) Hx Recent Travel: No sexually active: No caffeine: Yes physical activity: none brooke/episcopalian: None special brooke needs: No working smoke detector in home: Yes fire extinguisher in home: Yes carbon monox detector in home: No firearms in home: Yes do you feel safe at home: Yes victim of physical abuse: No victim of emotional abuse: No victim of sexual abuse: No would you like helpful sources: No ROS Obtained: Yes Systems reviewed as appropriate & no additional complaints except as documented Physical Exam General General appearance: alert and in no apparent distress Head Head exam: atraumatic and normocephalic Eye Eye exam: Present PERRL, conjunctival redness, discharge and other ENT ENT exam: Present mucous membranes moist; Absent TM's normal bilaterally (Purulent effusion left ear) Neck Neck exam: Present normal inspection Chest Chest inspection: Present normal inspection and symmetric chest wall rise Respiratory Respiratory exam: Present normal lung sounds bilaterally; Absent respiratory distress Cardiovascular Cardiovascular exam: Present regular rate and normal rhythm Abdominal Exam Abdominal exam: Present soft Extremities Exam Extremities exam: Present normal inspection Neurological Exam Neurological exam: Present alert Psychiatric Psychiatric exam: Present normal affect Skin Skin exam: Present warm and dry Medical Decision Making Scott Inquiry Pt receiving controlled substance: No Vital Signs: 11/05/23 21:44 11/05/23 22:00 11/05/23 22:31 Temperature 98.5 F Temperature Source Oral Pulse Rate 98 H 84 Pulse Rate [Left Radial] 94 H Respiratory Rate 20 22 25 H Blood Pressure 117/60 101/51 L Blood Pressure [Right Arm] 125/65 Blood Pressure Mean 79 67 Blood Pressure Mean [Right Arm] 85 Blood Pressure Source [Right Arm] Automatic Cuff Blood Pressure Position Blood Pressure Position [Right Arm] Sitting 02 Sat by Pulse Oximetry 95 94 L 94 L Oxygen Delivery Method Room Air Room Air Room Air 11/05/23 23:00 11/05/23 23:30 11/05/23 23:49 Temperature 98.1 F 98.1 F Temperature Source Oral Pulse Rate 82 84 84 Pulse Rate [Left Radial] Respiratory Rate 27 H 20 20 Blood Pressure 116/64 112/62 112/62 Blood Pressure [Right Arm] Blood Pressure Mean 73 Blood Pressure Mean [Right Arm] Blood Pressure Source [Right Arm] Blood Pressure Position Sitting Blood Pressure Position [Right Arm] 02 Sat by Pulse Oximetry 93 L 96 Oxygen Delivery Method Room Air Lab Data Lab Results 11/05/23 22:11: SARS-CoV-2 (PCR) Not detected, Influenza A Untype (PCR) Not detected, Influenza Type B (PCR) Not detected 11/05/23 22:15: WBC 13.6 H, RBC 4.40, Hgb 14.2, Hct 42.2, MCV 95.9, MCH 32.2 H, MCHC 33.6, RDW 13.3, Plt Count 311, MPV 7.8, Neut % (Auto) 84.0 H, Lymph % (Auto) 7.9 L, Isabela % (Auto) 6.6, Eos % (Auto) 0.8, Baso % (Auto) 0.8, Neut # (Auto) 11.5 H, Lymph # (Auto) 1.1, Isabela # (Auto) 0.9, Eos # (Auto) 0.1, Baso # (Auto) 0.1, Sodium 136, Potassium 3.6, Chloride 105, Carbon Dioxide 27, Anion Gap 7.6, BUN 14, Creatinine 0.70, Estimated Creat Clear 55, Estimated GFR 85, Est GFR ( Amer) 103, Glucose 122 H, Calcium 9.1, Total Bilirubin 0.4, AST 50 H, ALT 35, Alkaline Phosphatase 122, Troponin I < 0.01, Total Protein 7.0, Albumin 4.1, Globulin 2.9, Albumin/Globulin Ratio 1.4 11/05/23 22:15 11/05/23 22:15 Orders (Tests/Meds): ORDERS Category Date Time Status CXR 2 view (NOT portable) [XR chest 2V] Stat Exams 11/05/23 21:47 Completed CBC w/Auto Diff [Complete Blood Count Auto Diff] Stat Lab 11/05/23 22:15 Completed CMP [Comprehensive Metabolic Panel] Stat Lab 11/05/23 22:15 Completed Rapid PCR Covid and Flu A/B Stat Lab 11/05/23 22:11 Completed Trop I [Troponin I] Stat Lab 11/05/23 22:15 Completed ECG Data Tracing #1: Independently interpreted by me, rate is 88, rhythm is regular, axis is normal, no ST elevation in anatomical contiguous leads, QTc 398. HEART Score History (anamnesis): Slightly suspicious ECG: Normal Age: 45-65 years Risk factors: 1-2 risk factors Troponin: </= normal limit HEART Score: 2 Medical Decision Narrative: In summary patient is a 63-year-old female with past medical history described above who presents emergency department for evaluation of multiple complaints. With respect to patient's clinical findings she likely has conjunctivitis otitis syndrome given bilateral purulent conjunctivitis with left-sided otitis media. We inspected cough and chest pain pneumonia is a consideration however she is clear to auscultation. Workup from that standpoint will be conducted with hematologic labs, chest x-ray, EKG, single troponin. ACS unlikely. Workup reviewed by me, hematologic labs remarkable for nonspecific mild leukocytosis, no SHADI or critical electrolyte abnormality. Initial troponin undetectably low. EKG nonischemic, viral swab negative for acute analytes. Given this patient is appropriate for discharge at this time, is covered already for otitis media with Bactrim and will be given polymyxin drops at bedside and was instructed how to use them with respect to her conjunctivitis. Given this patient is appropriate for discharge at this time will be discharged with a course of Bromfed. Critical Care Critical Care Time Critical Care Time: No
[2023-11-05 23:30] VITALS: BP 112/62; PULSE 84; RESP 20; TEMP 36.7; O2SAT 96
[2023-11-05 23:49] VITALS: BP 112/62; PULSE 84; RESP 20; TEMP 36.7; O2SAT 96
== END 2023-11-05 23:50 | disposition home or self-care (01) ==
PROVIDERS: Emergency Provider Emergency Medicine; PCP Family Medicine
DX: H66.92 Otitis media, unspecified, left ear (principal); H10.33 Unspecified acute conjunctivitis, bilateral; B34.9 Viral infection, unspecified; F17.210 Nicotine dependence, cigarettes, uncomplicated; G35 Multiple sclerosis
CPT/HCPCS: 71046; 80053; 84484; 85025; 87636; 93005; 99284

== ENCOUNTER 2024-02-07 12:50 | Outpatient (POV) | payer MEDICARE, SELFPAY | END 2024-02-07 23:59 | disposition home or self-care (01) | LOC: SC 12:50 | PROVIDERS: Visit Provider Specialist/Technologist | DX: Z00.00 Encounter for general adult medical examination without abnormal findings (principal) ==

== ENCOUNTER 2024-03-30 09:52 | Outpatient (CLI) | payer MEDICARE, SELFPAY ==
[2024-03-30] VITALS (10 sets, daily range): BP systolic 103–115; BP diastolic 50–65; PULSE 62–73; RESP 18; TEMP 36.4; O2SAT 97–98
[2024-03-30] MEDS: SODIUM CHLORIDE 0.9% 50ML BAG 50 ML IV (10:12)
[2024-03-30] MEDS: diphenhydrAMINE 50MG CAPSULE 50 MG PO (10:12)
[2024-03-30] MEDS: METHYLPREDNISOLONE SOD SUCC 125MG VIAL 125 MG IV (10:13)
[2024-03-30] MEDS: SODIUM CHLORIDE 0.9% 10ML FLUSH SYRINGE 10 ML IV (10:13)
[2024-03-30] MEDS: ACETAMINOPHEN 325MG TAB 650 MG PO (10:13)
[2024-03-30] MEDS: SODIUM CHLORIDE 0.9% IV (10:40)
[2024-03-30] MEDS: UBLITUXIMAB XIIY IV (10:40)
== END 2024-03-30 14:44 | disposition home or self-care (01) ==
LOC: INF 09:53
PROVIDERS: PCP Family Medicine; Visit Provider Psychiatry & Neurology Neurology
DX: Z51.12 Encounter for antineoplastic immunotherapy (principal); G35 Multiple sclerosis; Z79.620 Long term (current) use of immunosuppressive biologic; Z79.52 Long term (current) use of systemic steroids
CPT/HCPCS: 96413; 96415; J2329; J2919

== ENCOUNTER 2024-05-03 13:42 | Emergency (ER) | payer MEDICARE, SELFPAY ==
[2024-05-03 14:09] VITALS: BP 120/69; PULSE 75; RESP 16; TEMP 36.8; O2SAT 99; BMI 21.9
--- NOTE | 2024-05-03 14:14 | ED_ITS ---
Discharge Plan Disposition Patient Disposition: Home, Self-Care Condition: Good Prescriptions Prescriptions: New olopatadine [Pataday Once Daily Relief] 0.2 % drops 1 drp ophthalmic (eye) DAILY PRN (Reason: itching) Qty: 2.5 0RF cephalexin 500 mg capsule 500 mg PO QID 7 Days Qty: 28 0RF benzonatate 100 mg capsule 100 mg PO TID PRN (Reason: cough) Qty: 30 0RF No Action donepezil [Aricept] 5 mg tablet 5 mg PO HS Qty: 30 3RF ublituximab-xiiy 25 mg/mL solution 150 mg IV Q24W fluticasone propionate [Flonase Allergy Relief] 50 mcg/actuation spray,suspension 2 spray intranasal BID Qty: 16 2RF Rx Instructions: administer into each nostril acetaminophen [Tylenol] 325 mg tablet 650 mg PO QID PRN (Reason: pain) Qty: 120 0RF fluoxetine 40 mg capsule See Rx Instructions .ROUTE .COMPLEX Qty: 90 0RF Rx Instructions: TAKE 1 CAPSULE BY MOUTH ONCE DAILY FOR MOOD cyanocobalamin (vitamin B-12) 1,000 mcg/mL solution 1,000 mcg IM QMONTH 30 Days Qty: 1 3RF venlafaxine 75 mg capsule,extended release 24hr See Rx Instructions .ROUTE .COMPLEX Qty: 30 3RF Dose Instruction: Take 1 capsule by mouth once daily Rx Instructions: Take 1 capsule by mouth once daily sumatriptan succinate 100 mg tablet 100 mg PO NEEDED PRN (Reason: migraines) ibuprofen 800 mg tablet 800 mg PO Q8H Referrals Follow up/Referrals: Mickey Maldonado MD [Primary Care Provider] - See instructions Activity Restrictions/Add. Instructions Additional Instructions/Restrictions: Make sure to get all the mold and the mold spores removed from your house or may continue to bother you Take medication as prescribed Follow up with your Family Doctor if no improvement or any worsening of symptom Follow up with [facility] to get tested to see what you may be allergic too Straight to the ER if any life threatening symptoms Clinical Impressions Clinical Impression: Cellulitis Instructions Patient Instructions: Cellulitis, DI for Allergic Rhinitis, Olopatadine Ophthalmic Print Language Print Language: French Discharge ED Provider: Rozina Read [facility] [place] H[place] General Stated complaint: diff breathing, cough, fatigue, swollen left ankle Mode of Arrival: Ambulatory Source of Information: Patient Limitations: No Limitations Time Seen by Provider: 05/03/24 14:14 Description of Symptoms (Recalled from Triage Doc. by RN): pt states she has been sick with complaints a of fatigue, cough and eye drainage. pt states she found mold in her house this week and believes this is the cause. pt also c/o L ankle pain that is sharp and a 6/10. pts ankle is edematous. pt denies injury. ongoing x1.5 wks. HEENT Symptoms (Recalled from RN notes): No Resp Symptoms (Recalled from RN notes): Yes Skin Symptoms (Recalled from RN notes): No MS Symptoms (Recalled from RN notes): Yes Functional Status (Recalled from RN notes): wnl History of Present Illness Provider Complaint: Patient states that she had been having allergy like symptoms since October with nasal congestion, cough, fatigue from coughing and drainage from eyes States that they found black mold in her house last week and she thinks it may be from that so she is not that concerned with that but she has been having swelling and mild redness on and off in her left ankle for about 2 weeks Denies known injury States at times it will look red and warm so today she came in when it was still bothering her Related Data Home Medications ?Medication ?Instructions ?Recorded ?Confirmed ibuprofen 800 mg tablet 800 mg PO Q8H Pain 05/12/23 03/30/24 sumatriptan succinate 100 mg tablet 100 mg PO NEEDED PRN migraines 05/12/23 03/30/24 ublituximab-xiiy 25 mg/mL 150 mg IV Q24W 02/09/24 03/30/24 intravenous solution Previous Rx's ?Medication ?Instructions ?Recorded acetaminophen 325 mg tablet 650 mg (2 x 325 mg) PO QID PRN 03/03/23 (Tylenol) pain #120 tabs cyanocobalamin (vitamin B-12) 1,000 mcg IM QMONTH 30 days #1 mL 11/07/23 1,000 mcg/mL injection solution fluticasone propionate 50 2 spray intranasal BID #16 grams 12/06/23 mcg/actuation nasal spray,suspension (Flonase Allergy Relief) fluoxetine 40 mg capsule See Rx Instructions .Route 01/30/24 .COMPLEX Depression #90 caps donepezil 5 mg tablet (Aricept) 5 mg PO HS MCI with memory #30 tabs 02/08/24 venlafaxine 75 mg capsule,extended See Rx Instructions .Route 04/19/24 release 24 hr .COMPLEX #30 caps benzonatate 100 mg capsule 100 mg PO TID PRN cough #30 caps 05/03/24 cephalexin 500 mg capsule 500 mg PO QID 7 days #28 caps 05/03/24 olopatadine 0.2 % eye drops 1 drp ophthalmic (eye) DAILY PRN 05/03/24 (Pataday Once Daily Relief) itching #2.5 mL Allergies Allergy/AdvReac Type Severity Reaction Status Date / Time clarithromycin [From BIAXIN] Allergy Intermediate I-RASH Verified 05/03/24 14:14 erythromycin base Allergy Intermediate I-RASH Verified 05/03/24 14:14 [ERYTHROMYCIN BASE] codeine [CODEINE] Allergy Unknown NA-NAUSEA Verified 05/03/24 14:14 Penicillins [PENICILLINS] Allergy Unknown NA-NAUSEA Verified 05/03/24 14:14 Worker's Comp Is this a Worker's Comp case?: No [facility] Disclaimer: The information contained in this section may have been updated after the patient was seen, as this information can be updated by other users. Medical History (Updated 05/03/24 @ 15:32 by Rozina Read APRN) Headache Chronic otitis media with serous effusion Tinnitus Hearing loss in left ear Generalized anxiety disorder Recurrent major depression resistant to treatment Seizures Multiple sclerosis Vitamin B12 deficiency Breast cancer SOB (shortness of breath) CODI (obstructive sleep apnea) Tobacco abuse Chest pain Surgical History History of tonsillectomy H/O lumpectomy Family History Father Cancer Grandfather , paternal FHx: mental illness completed suicide by drowning. -he was sick; had been complaining of side pain -they sent him to [facility] for a while -the day of discharge he completed suicide Social History (Updated 03/30/24 @ 13:49 by Phu Guerra, FAITH) Smoking Status: Current every day smoker tobacco type: cigarettes second hand exposure: No alcohol intake: never counseling given: No substance use type: denies use counseling given: No current occupational status: employed and other details: works at [employer] in the last 8 weeks: None adopted: No caregiver/support person: No foster care: No household members: none housing: other details: mobile home lives independently: Yes marital status: single number of children: 0 number of grandchildren: 0 education level: high school current occupation: at [employer] pets and animals: Yes pets and animals: cat(s) Hx Recent Travel: No sexually active: No caffeine: Yes physical activity: none brooke/scientology: None special brooke needs: No working smoke detector in home: Yes fire extinguisher in home: Yes carbon monox detector in home: No firearms in home: Yes do you feel safe at home: Yes victim of physical abuse: No victim of emotional abuse: No victim of sexual abuse: No would you like helpful sources: No ROS Obtained: Yes All systems reviewed & no additional complaints except as documented and Yes Systems reviewed as appropriate & no additional complaints except as documented Constitutional Constitutional: Reports system reviewed and no additional complaints, except as documented, Reports as per HPI, Reports fatigue (from waking up so much from coughing) and Denies headache(s) ENT Ears, Nose, Mouth, and Throat: Reports system reviewed and no additional complaints, except as documented, Reports as per HPI, Denies headache(s), Reports nasal congestion, Reports nasal discharge and Denies sore throat Cardiovascular Cardiovascular: Reports system reviewed and no additional complaints, except as documented, Reports as per HPI and Denies dyspnea on exertion Respiratory Respiratory: Reports system reviewed and no additional complaints, except as documented, Reports as per HPI, Denies shortness of breath, Denies chest congestion, Reports cough, Denies dyspnea on exertion, Denies excessive phlegm production, Denies hemoptysis and Denies pain with breathing Gastrointestinal Gastrointestingal: Reports system reviewed and no additional complaints, except as documented and as per HPI Musculoskeletal Musculoskeletal: Reports system reviewed and no additional complaints, except as documented, Reports as per HPI and Reports other Comments: pain mild swelling and redness to left ankle for about 2 weeks, denies known injury Integumentary/Breasts Skin/Breast: Reports system reviewed and no additional complaints, except as documented, Reports as per HPI and Reports other (mild redness noted left ankle/lower leg) Neurologic Neurologic: Denies headache(s) Endocrine Endocrine: Reports fatigue (from waking up so much from coughing) Physical Exam General General appearance: alert and in no apparent distress ENT ENT exam: Present mucous membranes moist Respiratory Respiratory exam: Present normal lung sounds bilaterally; Absent respiratory distress or wheezes Cardiovascular Cardiovascular exam: Present regular rate, normal rhythm and normal heart sounds Expanded Lower Extremity Exam Left: Knee exam: Present normal inspection and full ROM Lower leg exam: Present normal inspection Ankle exam: Present tenderness, swelling and erythema (mild ) Ankle image: 2 1. mild swelling noted 2. mild redness and warmth noted appears like cellulitis Neurovascular/Tendon exam: Present normal capillary refill Gait: observed and normal Neurological Exam Neurological exam: Present alert, oriented X3 and normal gait Medical Decision Making Medical Records Screening: Per USPSTF and CDC recommendations, given the prevalence of disease in our region, it is our hospital?s policy to screen for HIV and viral Hepatitis for all patients aged 18 and over and those with ongoing risk factors. Scott Inquiry Pt receiving controlled substance: No Scott was queried for this patient: No Vital Signs: 05/03/24 14:09 Temperature 98.2 F Temperature Source Oral Pulse Rate [Left] 75 Respiratory Rate 16 Blood Pressure [Right Arm] 120/69 Blood Pressure Mean [Right Arm] 86 Blood Pressure Source [Right Arm] Automatic Cuff Blood Pressure Position [Right Arm] Sitting 02 Sat by Pulse Oximetry 99 Oxygen Delivery Method Room Air Medical Decision Narrative: Patient states that she is allergic to amoxicillin but has taken Cephalexin in the past without complications or reactions
[2024-05-03 15:22] LABS: Uric Acid 2.5 mg/dl (2.5-6.2)
[2024-05-03 15:41] VITALS: BP 120/69; PULSE 75; RESP 16; TEMP 36.8
== END 2024-05-03 15:44 | disposition home or self-care (01) ==
PROVIDERS: Emergency Provider Nurse Practitioner; PCP Family Medicine
DX: L03.116 Cellulitis of left lower limb (principal); R05.9 Cough, unspecified; R09.81 Nasal congestion
CPT/HCPCS: 84550; 99204; 99212; G0463

== ENCOUNTER 2024-05-25 15:36 | Emergency (ER) | payer MEDICARE, SELFPAY ==
[2024-05-25 15:37] VITALS: BP 120/63; PULSE 105; RESP 34; TEMP 37.2; O2SAT 91; BMI 22.2
--- NOTE | 2024-05-25 15:43 | ECG_ITS ---
APPROVED REPORT Exam: Resting ECG HR:92 bpm ECG Measurements Heart Rate 92 AXES SD 140 P 74 QRSd 78 QRS 37 QT 353 T 69 QTc 403 Conclusion Sinus rhythm Electronically signed by : NARENDRA GAINES, 05/25/2024 20:45:41
--- NOTE | 2024-05-25 15:51 | XR_ITS ---
FINAL REPORT CLINICAL HISTORY: Shortness of breath COMPARISON: 11/05/2023 FINDINGS: Two views of the chest were obtained. The heart size and pulmonary vascularity are within normal limits. The mediastinum is normal. There are mild bibasilar opacities which may represent atelectasis or pneumonia. There is no pneumothorax. The bony thorax is intact. IMPRESSION: Bibasilar opacities, probable atelectasis or pneumonia. Reviewed, Interpreted and Dictated by Raul Bellamy III, MD Transcribed by Ashleigh Archuleta Authenticated and [facility]
--- NOTE | 2024-05-25 15:52 | ED_ITS ---
Discharge Plan Disposition Patient Disposition: Home, Self-Care Prescriptions Prescriptions: New doxycycline hyclate 100 mg capsule 100 mg PO BID 5 Days Qty: 10 0RF prednisone 20 mg tablet 40 mg PO DAILY 5 Days Qty: 10 0RF No Action donepezil [Aricept] 5 mg tablet 5 mg PO HS Qty: 30 3RF ublituximab-xiiy 25 mg/mL solution 150 mg IV Q24W fluticasone propionate [Flonase Allergy Relief] 50 mcg/actuation spray,suspension 2 spray intranasal BID Qty: 16 2RF Rx Instructions: administer into each nostril ibuprofen 800 mg tablet 800 mg PO Q8H Qty: 100 1RF sulfamethoxazole-trimethoprim 800-160 mg tablet 1 tab PO BID Qty: 20 0RF acetaminophen [Tylenol] 325 mg tablet 650 mg PO QID PRN (Reason: pain) Qty: 120 0RF fluoxetine 40 mg capsule See Rx Instructions .ROUTE .COMPLEX Qty: 90 0RF Rx Instructions: TAKE 1 CAPSULE BY MOUTH ONCE DAILY FOR MOOD cyanocobalamin (vitamin B-12) 1,000 mcg/mL solution 1,000 mcg IM QMONTH 30 Days Qty: 1 3RF venlafaxine 75 mg capsule,extended release 24hr See Rx Instructions .ROUTE .COMPLEX Qty: 30 3RF Dose Instruction: Take 1 capsule by mouth once daily Rx Instructions: Take 1 capsule by mouth once daily olopatadine [Pataday Once Daily Relief] 0.2 % drops 1 drp ophthalmic (eye) DAILY PRN (Reason: itching) Qty: 2.5 0RF Referrals Follow up/Referrals: Mickey Maldonado MD [Primary Care Provider] - See instructions Kinga Rubio MD [Physician] - See instructions Activity Restrictions/Add. Instructions Additional Instructions/Restrictions: Call your family doctor to establish care for this visit to the emergency department and schedule follow-up within 48 hours to ensure improvement. If you have any worsening of your condition or any other concerning signs or symptoms, return to the emergency department or your primary care doctor for further evaluation. Clinical Impressions Clinical Impression: Shortness of breath, COPD exacerbation Print Language Print Language: Yi Discharge ED Provider: Maynor Lopez HPI General Chief Complaint: Shortness of Breath/Dyspnea Stated Complaint: SOA Time Seen by Provider: 05/25/24 15:42 History of Present Illness HPI narrative: Please note that above description of symptoms, in this electronic medical record under categorization of recalled from ER triage doctor by RN are reflective of an initial nursing assessment, however, is not reflective of my full history and physical exam that was personally taken and clarified. Consequentially, this preceding description of symptoms, which may include the patient's categorized chief complaint in the EMR, do not reflect my personal clinical impression, and the ultimate description of history of present illness and patient stated complaints should be deferred to this section of the note. Unless stated otherwise or congruent with this section of the note, additional signs, symptoms, or incongruence should be interpreted as inaccurate with my clinical impression. Related Data Home Medications ?Medication ?Instructions ?Recorded ?Confirmed ublituximab-xiiy 25 mg/mL 150 mg IV Q24W 02/09/24 05/22/24 intravenous solution Previous Rx's ?Medication ?Instructions ?Recorded acetaminophen 325 mg tablet 650 mg (2 x 325 mg) PO QID PRN 03/03/23 (Tylenol) pain #120 tabs cyanocobalamin (vitamin B-12) 1,000 mcg IM QMONTH 30 days #1 mL 11/07/23 1,000 mcg/mL injection solution fluticasone propionate 50 2 spray intranasal BID #16 grams 12/06/23 mcg/actuation nasal spray,suspension (Flonase Allergy Relief) fluoxetine 40 mg capsule See Rx Instructions .Route 01/30/24 .COMPLEX Depression #90 caps donepezil 5 mg tablet (Aricept) 5 mg PO HS MCI with memory #30 tabs 02/08/24 venlafaxine 75 mg capsule,extended See Rx Instructions .Route 04/19/24 release 24 hr .COMPLEX #30 caps olopatadine 0.2 % eye drops 1 drp ophthalmic (eye) DAILY PRN 05/03/24 (Pataday Once Daily Relief) itching #2.5 mL ibuprofen 800 mg tablet 800 mg PO Q8H Pain #100 tabs 05/09/24 sulfamethoxazole 800 1 tab PO BID #20 tabs 05/22/24 mg-trimethoprim 160 mg tablet doxycycline hyclate 100 mg capsule 100 mg PO BID 5 days #10 caps 05/25/24 prednisone 20 mg tablet 40 mg (2 x 20 mg) PO DAILY 5 days 05/25/24 #10 tabs Allergies Allergy/AdvReac Type Severity Reaction Status Date / Time clarithromycin [From BIAXIN] Allergy Intermediate I-RASH Verified 05/22/24 12:57 erythromycin base Allergy Intermediate I-RASH Verified 05/22/24 12:57 [ERYTHROMYCIN BASE] codeine [CODEINE] Allergy Unknown NA-NAUSEA Verified 05/22/24 12:57 Penicillins [PENICILLINS] Allergy Unknown NA-NAUSEA Verified 05/22/24 12:57 [facility] Disclaimer: The information contained in this section may have been updated after the patient was seen, as this information can be updated by other users. Medical History Headache Chronic otitis media with serous effusion Tinnitus Hearing loss in left ear Generalized anxiety disorder Recurrent major depression resistant to treatment Seizures Precipitated by blood harrell, described as alteration in awareness, confusion, hallucinations in the setting of abnormal EEG, brain MRI. Currently asymptomatic since sometime in 2021. Multiple sclerosis Relapsing remitting MS diagnosed 11/2011 with probable onset 2006. Abnormal MRI, LP with OCPs greater than 5 present in CSF not serum, clinical presentation. Prior evaluation by Dr. Shine Tapia and Poly Aguirre. Current Brain MRI shows extensive white matter changes, stable since 2020 but with new complaints of memory loss. Labs for MS mimickers noncontributory. Referral to MS clinic still pending scheduling for now patient has no transportation to [place] and requests [place]. Vitamin B12 deficiency Breast cancer SOB (shortness of breath) CODI (obstructive sleep apnea) Tobacco abuse Half a pack per day Chest pain Surgical History History of tonsillectomy H/O lumpectomy Family History Father Cancer Grandfather , paternal FHx: mental illness completed suicide by drowning. -he was sick; had been complaining of side pain -they sent him to [facility] for a while -the day of discharge he completed suicide Social History Smoking Status: Current every day smoker tobacco type: cigarettes second hand exposure: No alcohol intake: never counseling given: No substance use type: denies use counseling given: No current occupational status: employed and other details: works at [employer] Travel in the last 8 weeks: None adopted: No caregiver/support person: No foster care: No household members: none housing: other details: mobile home lives independently: Yes marital status: single number of children: 0 number of grandchildren: 0 education level: high school current occupation: at [employer] pets and animals: Yes pets and animals: cat(s) Hx Recent Travel: No sexually active: No caffeine: Yes physical activity: none brooke/episcopal: None special brooke needs: No working smoke detector in home: Yes fire extinguisher in home: Yes carbon monox detector in home: No firearms in home: Yes do you feel safe at home: Yes victim of physical abuse: No victim of emotional abuse: No victim of sexual abuse: No would you like helpful sources: No Other Medical History Have you received the Flu Vaccine for this season: Yes Have you received the Pneumonia Vaccine: Yes ROS Obtained: Yes All systems reviewed & no additional complaints except as documented Physical Exam General General appearance: alert Neck Neck exam: Present trachea midline Chest Chest inspection: Present normal inspection and symmetric chest wall rise Respiratory Respiratory exam: Present wheezes (lower posterior myers); Absent respiratory distress, stridor, accessory muscle use or prolonged expiratory phase Cardiovascular Cardiovascular exam: Present regular rate, normal rhythm and other (Pulses equal and symmetric in upper and lower extremities) Extremities Exam Extremities exam: Present edema (1+ pitting) Neurological Exam Neurological exam: Present alert, oriented X3, CN II-XII intact and normal gait; Absent motor sensory deficit Skin Skin exam: Present warm and dry; Absent cyanosis, diaphoresis or pallor HEART Score HEART Score HEART Score assessment performed?: Yes History (anamnesis): Slightly suspicious ECG: Non-specific disturbance Age: 45-65 years Risk factors: 1-2 risk factors Troponin: </= normal limit HEART Score: 3 Critical Care Critical Care Time Critical Care Time: No Medical Decision Making Medical Records Medical records reviewed: Yes I reviewed the patient's medical records. Scott Inquiry Pt receiving controlled substance: No Scott was queried for this patient: No Vital Signs Vital Signs: 05/25/24 15:37 05/25/24 16:03 05/25/24 16:30 Temperature 99.0 F Temperature Source Oral Pulse Rate 89 88 Pulse Rate [Left Radial] 105 H Respiratory Rate 34 H 29 H 17 Blood Pressure 115/49 L Blood Pressure [Right Arm] 120/63 Blood Pressure Mean [Right Arm] 82 Blood Pressure Source Blood Pressure Source [Right Arm] Automatic Cuff Blood Pressure Position Blood Pressure Position [Right Arm] Sitting 02 Sat by Pulse Oximetry 91 L 93 L 99 Oxygen Delivery Method Room Air Room Air 05/25/24 17:00 05/25/24 17:20 Temperature 97.9 F Temperature Source Oral Pulse Rate 84 86 Pulse Rate [Left Radial] Respiratory Rate 28 H 18 Blood Pressure 113/70 113/70 Blood Pressure [Right Arm] Blood Pressure Mean [Right Arm] Blood Pressure Source Automatic Cuff Blood Pressure Source [Right Arm] Blood Pressure Position Sitting Blood Pressure Position [Right Arm] 02 Sat by Pulse Oximetry 96 Oxygen Delivery Method Room Air Room Air Lab Data Labs: Lab Results 05/25/24 15:44: WBC 15.5 H, RBC 4.33, Hgb 13.7, Hct 40.3, MCV 93.0, MCH 31.6 H, MCHC 33.9, RDW 13.2, Plt Count 389, MPV 7.3 L, Neut % (Auto) 81.4 H, Lymph % (Auto) 10.5, [place] % (Auto) 5.9, Eos % (Auto) 1.6, Baso % (Auto) 0.6, Neut # (Auto) 12.6 H, Lymph # (Auto) 1.6, [place] # (Auto) 0.9, Eos # (Auto) 0.3, Baso # (Auto) 0.1, Total Counted 100, Neutrophils % (Manual) 72, Lymphocytes % (Manual) 19, Monocytes % (Manual) 8, Eosinophils % (Manual) 1, Platelet Estimate Slight decrease, RBC Morphology Normal, PT 10.7, INR 0.95, APTT 31.6 H, Sodium 135 L, Potassium 3.8, Chloride 102, Carbon Dioxide 27, Anion Gap 9.8, BUN 13, C reatinine 0.50 L, Estimated Creat Clear 58, Estimated GFR 125, Est GFR ( Amer) 151, Glucose 100, Hemoglobin A1c 5.0, Calcium 9.1, Total Bilirubin 0.7, A ST 43 H, ALT 32, Alkaline Phosphatase 123, Troponin I < 0.01, NT-Pro-B Natriuret Pep 228 H, Total Protein 7.4, Albumin 4.3, Globulin 3.1, Albumin/Globulin Ratio 1.4 05/25/24 16:00: VBG pH 7.41, VBG pCO2 33.8 L, VBG pO2 36.7, VBG HCO3 20.9 L, VBG Total CO2 21.9 L, VBG O2 Saturation 71.7 H, VBG Base Excess -3.8 L, VBG Lactic Acid 2.1 H 05/25/24 15:44 05/25/24 15:44 Response Orders (Tests/Meds): ED MEDICATIONS Discontinued Medications Generic Name Dose Route Start Last Admin Trade Name Freq PRN Reason Stop Dose Admin Albuterol/Ipratropium 9 ml 05/25/24 15:51 05/25/24 16:02 Ipratropium/Albuterol 3 Ml Neb IH 05/25/24 15:52 9 ml ONCE ONE Administration Methylprednisolone Sodium Succinate 125 mg 05/25/24 15:51 05/25/24 16:02 Methylprednisolone Sod Succ 125mg Vial IV 05/25/24 15:52 125 mg ONCE ONE Administration ORDERS Category Date Time Status CXR 2 view (NOT portable) [XR chest 2V] Stat Exams 05/25/24 15:51 Completed Complete Blood Count Auto Diff Stat Lab 05/25/24 15:44 Completed Comprehensive Metabolic Panel Stat Lab 05/25/24 15:44 Completed HIV (1&2) Antibody Rapid Stat Lab 05/25/24 15:44 Received Hemoglobin A1C Stat Lab 05/25/24 15:44 Completed Hep C Ab with Reflex to RNA Stat Lab 05/25/24 15:44 Received NT Pro Brain Natriuretic Pep. Stat Lab 05/25/24 15:44 Completed PT INR [Prothrombin Time INR] Stat Lab 05/25/24 15:44 Completed PTT [Activated Partial Thrombo Time] Stat Lab 05/25/24 15:44 Completed Troponin I Stat Lab 05/25/24 15:44 Completed Venous Blood Gas Stat RT 05/25/24 16:00 Completed MDM Narrative Medical Decision Narrative: This is a 63-year-old female with [id number] smoking history, hypertension, anxiety, sleep apnea presenting with shortness of breath. Patient states that she is still currently smoking 30 cigarettes a day. Never been told that she had COPD or any lung disease. Also never been told that she had a heart disease. States that she has seen her family doctor multiple times, has not gotten to the bottom of what is going on. States that shortness of breath is chronic, worsening multiple months, no acute on chronic shortness of breath. Not associated with chest pain, nausea, vomiting, diaphoresis, night sweats, or any neurologic deficits. Patient states that shortness of breath is made worse with lying down flat, has been sleeping propped up on pillows for the past couple of days. Also states that she has been having lower extremity edema for the past 2 weeks or so. History obtained with patient. On arrival, very well- appearing. She is hemodynamically stable, alert, answering questions appropriately and GCS 15. Pupils equal and reactive and moving extremity spontaneously, ambulatory without issue. Patient has lungs that are clear and superior lung myers, however posteriorly and inferiorly, has isolated wheezes. No obvious rales or rhonchi. Cardiac exam with right upper sternal border murmur 2-3 out of 6. No other murmurs gallops or rubs. Abdomen is soft, nontender. Patient's lower extremities with 1+ pitting edema. Pulses are equal and symmetric in upper and lower extremities. She is grossly neurologically intact. Differential includes CHF, COPD, ACS, MD, cardiomyopathy, pneumothorax, pneumonia, bronchitis, among others. Patient given DuoNebs and Solu-Medrol for acute management. Patient was placed on continuous cardiac monitoring and continuous pulse oximetry with initial blood pressure 120/63, heart rate 95, oxygen saturation 91% on room air. I feel this is likely secondary to undiagnosed COPD. Sinus rhythm 92 beats a minute with no ST or T wave changes concerning for acute ischemia. [place] 140 QRS 78, QTc 4 3. [place] normal. Independent interpretation of workup demonstrates leukocytosis 15.5, mild compensated metabolic acidosis with normal pH, bicarb low at 21, CO2 little low at 34. Nonactionable chemistry. Troponin and BNP negative. On reevaluation, patient feeling much better after nebs and steroid. Given patient presentation, workup, history, this most likely represents exacerbation of COPD, not formally diagnosed. Conversation had with patient regarding outpatient follow-up, she is agreeable to seeing quality assurance auditor. Because patient having new cough that she feels needs to be productive, unable to bring it up, as well as mild leukocytosis and metabolic acidosis with respiratory compensation, steroids and doxycycline sent for mild COPD exacerbation. Because patient at baseline without signs or symptoms of clinical decompensation, deemed appropriate for discharge. Results were relayed to patient who voiced understanding and were agreeable to outpatient management and follow up. I discussed my clinical impression with patient and answered all questions. At this time, the evidence for any other entities in the differential is insufficient to warrant any further testing or ED observation. This was explained as well. Advisory was given that persistent or worsening symptoms require further evaluation. I confirmed the understanding of this discussion. Construction Rep disclaimer Much of this encounter note is an electronic computer forensics technician spoken language to printed text. Electronic computer forensics technician of the spoken language may permit errors. Although I have reviewed the note, some errors may still exist.
[2024-05-25 15:58] LABS: Basophils # 0.1 K/mm3 (0-0.2); Basophils % 0.6 % (0.1-2.0); Eosinophils # 0.3 K/mm3 (0.0-0.4); Eosinophils % 1.6 % (0.1-12.0); Hematocrit 40.3 % (37.0-47.0); Hemoglobin 13.7 g/dL (12.2-16.2); Lymphocytes # 1.6 K/mm3 (0.7-4.5); Lymphocytes % 10.5 % (10-50); Mean Corpuscular HGB Conc 33.9 g/dL (31.8-35.4); Mean Corpuscular Hemoglobin 31.6 pg (27.0-31.2); Mean Platelet Volume 7.3 fl (7.4-10.4); Monocytes # 0.9 K/mm3 (0.1-1.0); Monocytes % 5.9 % (1.7-9.3); Neutrophils # 12.6 K/mm3 (1.8-7.8); Neutrophils % 81.4 % (37.0-80.0); Platelet Count 389 K/mm3 (142-424); Red Blood Count 4.33 M/mm3 (4.20-5.40); Red Cell Distribution Width 13.2 % (11.5-17.5); White Blood Count 15.5 K/mm3 (4.8-10.8)
[2024-05-25 16:00] LABS: MANUAL DIFFERENTIAL MANUAL DIFFERENTIAL (MANUAL DIFF)
[2024-05-25] MEDS: METHYLPREDNISOLONE SOD SUCC 125MG VIAL 125 MG IV (16:02)
[2024-05-25] MEDS: IPRATROPIUM/ALBUTEROL 3 ML NEB 9 ML IH (16:02)
[2024-05-25 16:03] VITALS: PULSE 89; RESP 29; O2SAT 93
[2024-05-25 16:07] LABS: VBG Base Excess -3.8 mmol/L (-2.4-2.3); VBG HCO3 20.9 mmol/L (23-30); VBG Oxygen Saturation 71.7 % (50-70); VBG PCO2 33.8 mmol/L (35-51); VBG PH 7.41 mmol/L (7.31-7.41); VBG PO2 36.7 mmol/L (28-40); VBG Total CO2 21.9 mmol/L (23-27)
[2024-05-25 16:07] LABS: Albumin Level 4.3 g/dl (3.5-5.0); Chloride 102 mmol/L (98-107); Potassium 3.8 mmoL/L (3.5-5.1); Sodium 135 mmol/L (136-145)
[2024-05-25 16:08] LABS: Lactate Venous 2.1 mmol/L (0.4-2.0)
[2024-05-25 16:10] LABS: Alanine Aminotransferase 32 U/L (12-78); Albumin/Globulin Ratio 1.4 (1.1-1.8); Alkaline Phosphatase 123 U/L (38-126); Anion Gap 9.8 mEq/L (5-15); Aspartate Amino Transferase 43 U/L (14-36); Bilirubin,Total 0.7 mg/dl (0.2-1.3); Blood Urea Nitrogen 13 mg/dl (7-17); Calcium 9.1 mg/dl (8.4-10.2); Carbon Dioxide 27 mmol/L (22.0-30.0); Creatinine Clearance Estimated 58 mL/min (50-200); Estimated Glomerular Filt Rate 125 ml/min (>60); GFR (African American) 151 ML/MIN (>60); Globulin 3.1 g/dL (1.3-3.2); Glucose 100 mg/dl (74-100); Total Protein,Serum 7.4 g/dl (6.3-8.2)
[2024-05-25 16:15] LABS: Activated Partial Thrombo Time 31.6 seconds (22.8-30.6); INR 0.95 (0.9-1.1); Prothrombin Time 10.7 seconds (10.1-12.5)
[2024-05-25 16:28] LABS: NT Pro Brain Natriuretic Pep. 228 pg/mL (0-125)
--- NOTE | 2024-05-25 16:28 | PC.NURSE ---
no needs voiced at this time. call light is within reach
[2024-05-25 16:30] VITALS: BP 115/49; PULSE 88; RESP 17; O2SAT 99
[2024-05-25 16:31] LABS: Troponin I < 0.01 ng/ml (0.00-0.034)
[2024-05-25 16:36] LABS: Eosinophils % 1 % (0-3); Lymphocytes % 19 % (10-50); Monocytes % 8 % (2-9); Neutrophils % 72 % (42-76); RBC Morphology Normal; Total Cells Counted 100
[2024-05-25 16:37] LABS: Platelet Estimate Slight Decrease
[2024-05-25 17:00] VITALS: BP 113/70; PULSE 84; RESP 28; O2SAT 96
[2024-05-25 17:20] VITALS: BP 113/70; PULSE 86; RESP 18; TEMP 36.6; O2SAT 98
[2024-05-25 18:36] LABS: HIV (1&2) Antibody Rapid NONREACTIVE (NONREACTIVE)
[2024-05-25 20:08] LABS: Reflex Lactic Add Lactic Reflex
[2024-05-27 08:10] LABS: HCV Ab Non Reactive (Non Reactive)
== END 2024-05-25 17:20 | disposition home or self-care (01) ==
PROVIDERS: Emergency Provider Emergency Medicine; PCP Family Medicine
DX: R06.02 Shortness of breath (principal); R06.00 Dyspnea, unspecified; J44.1 Chronic obstructive pulmonary disease with (acute) exacerbation
CPT/HCPCS: 71046; 80053; 82803; 83036; 83880; 84484; 85007; 85025; 85610; 85730; 86803; 87389; 93005; 96374; 99284; J2919; J7620

== ENCOUNTER 2024-07-02 13:01 | Outpatient (CLI) | payer MEDICARE, SELFPAY ==
--- NOTE | 2024-07-02 13:02 | MM_ITS ---
PROCEDURE INFORMATION: Exam: MG Bilateral Screening 3D Mammography Exam date and time: 07/02/2024 12:45 PM Age: 63 years old Clinical indication: Screening exam. TECHNIQUE: Imaging protocol: Bilateral Screening tomosynthesis and 2D mammography including computer-aided detection (CAD) when performed. COMPARISON: 1. MG MM DIG SCREENING MAMM BI W/CAD 09/28/2022 10:12 AM 2. MG MM DIG MAMM DX UNILAT LT CAD 11/20/2020 2:01 PM FINDINGS: MAMMOGRAPHY: Breast composition: The breasts are heterogeneously dense, which may obscure small masses. Mass: No suspicious masses. Architectural distortion: Postsurgical changes redemonstrated right breast . Calcifications: No suspicious calcifications. Asymmetric density: None. Skin thickening: None. Axillary adenopathy: None. IMPRESSION: No mammographic evidence of malignancy. Annual screening is recommended unless otherwise clinically indicated. ASSESSMENT: BI-RADS Category 1: Negative.
== END 2024-07-02 23:59 | disposition home or self-care (01) ==
LOC: RAD 13:02
PROVIDERS: PCP Family Medicine; Visit Provider Family Medicine
DX: Z12.31 Encounter for screening mammogram for malignant neoplasm of breast (principal)
CPT/HCPCS: 77063; 77067

== ENCOUNTER 2024-07-06 09:09 | Outpatient (CLI) | payer MEDICARE, SELFPAY ==
--- NOTE | 2024-07-06 09:17 | XR_ITS ---
FINAL REPORT CLINICAL HISTORY: Osteoporosis COMPARISON: 04/14/2020 FINDINGS: Using L1-4, the bone mineral density of the spine is 0.900 g/cm2, corresponding to T-score of -1.3, consistent with osteopenia but may be artificially elevated secondary to hypertrophic changes. Previously was 0.822 g/cm? with a T-score of -2.0. Using the left hip, the bone mineral density of the total hip is 0.537 g/cm2, corresponding to a T-score of -3.3, consistent with osteoporosis. Previously was 0.476 g/cm? with a T-score of -3.8. Using the right hip, the bone mineral density of the total hip is 0.584 g/cm2, corresponding to a T-score of -2.9, consistent with osteoporosis. Previously was 0.558 g/cm? with a T-score of -3.1. FRAX not reported because some T-score at or below -2.5 NOTE: T-score: Standard deviation compared with peak bone mass of young adult mean. *Following the recommendations of the International Society of Bone densitometry, classification of hip BMD is based on the lower of two T-scores; total hip or femoral neck. IMPRESSION: Diminished bone mineral density consistent with osteoporosis. Reviewed, Interpreted and Dictated by Darrell Jansen MD Transcribed by Nayla Puente Authenticated and [facility]
== END 2024-07-06 23:59 | disposition home or self-care (01) ==
LOC: RAD 09:11
PROVIDERS: PCP Family Medicine; Visit Provider Specialist
DX: M81.0 Age-related osteoporosis without current pathological fracture (principal)
CPT/HCPCS: 77080

== ENCOUNTER 2024-07-24 14:52 | Emergency (ER) | payer MEDICARE, SELFPAY ==
[2024-07-24 15:16] VITALS: BP 125/63; PULSE 88; RESP 18; TEMP 36.7; O2SAT 99; BMI 21.6
--- NOTE | 2024-07-24 15:31 | XR_ITS ---
FINAL REPORT CLINICAL HISTORY: posterior R chest wall mass, smoker x 20 yrs, cough COMPARISON: 05/25/2024 FINDINGS: Two views of the chest were obtained. The heart size and pulmonary vascularity are within normal limits. The mediastinum is normal. Postoperative changes are noted in the right axilla. There is soft tissue fullness in the right axilla, mass not excluded. There is an opacity in the right lateral thorax worrisome for pleural or pleural-based mass. There is a small right pleural effusion. IMPRESSION: Opacity right lateral thorax worrisome for pleural or pleural-based mass. Recommend CT chest with contrast for further evaluation. Soft tissue fullness right axilla, mass not excluded. Right pleural effusion. Reviewed, Interpreted and Dictated by Raul Bellamy III, MD Transcribed by Ashleigh Archuleta Authenticated and [facility]
--- NOTE | 2024-07-24 15:41 | CT_ITS ---
PROCEDURE INFORMATION: Exam: CT Chest Without and With Contrast; Diagnostic Exam date and time: 07/24/2024 5:15 PM Age: 63 years old Clinical indication: Mass, lump, or swelling in the chest; Additional info: Post R wall mass, concern for sarcoma on pocus TECHNIQUE: Imaging protocol: Diagnostic computed tomography of the chest without and with contrast. Radiation optimization: All CT scans at this facility use at least one of these dose optimization techniques: automated exposure control; mA and/or kV adjustment per patient size (includes targeted exams where dose is matched to clinical indication); or iterative reconstruction. Contrast material: ISOVUE; Contrast volume: 75 ml; Contrast route: IV; COMPARISON: 1. CR XR CHEST 2V 07/24/2024 3:[address] CHEST WO CON 03/25/2020 3:28 PM 3. CR XR CHEST 2V 05/25/2024 3:46 PM FINDINGS: Lungs: There is some consolidation in the subpleural right lower lobe which is likely chronic. There are scattered areas of emphysema throughout the lungs. Scattered areas of bronchial wall thickening which are likely chronic inflammatory. A few areas of subpleural reticulation are noted, nonspecific. There are scattered calcified granulomas in the lungs which most likely reflect prior granulomatous disease. Pleural spaces: Pleural surfaces are smooth, and there are no pleural effusions, pneumothoraces, or pleural plaques noted. Heart: The heart size is within normal limits, and the pericardium appears clear with no signs of pericardial effusion or thickening. Coronary arteries: The coronary arteries are not well-visualized in this non-gated study, but nosignificant calcification is seen. Mediastinal space: The mediastinum appears unremarkable with no evidence of masses, lymphadenopathy, or mediastinal widening. Hilar structures including the major bronchi and vessels appear intact. Lymph nodes: Unremarkable. No enlarged lymph nodes. Vasculature: There is atherosclerotic disease of the visualized aorta and its major branch vessels. Liver: Simple appearing left hepatic lobe cyst. Bones/joints: This is adjacent to a couple of old rib fractures. There is diffuse degenerative disease of the visualized osseous structures. Soft tissues: There is a well encapsulated 5.3 x 2.2 cm subcutaneous mass in the right back (image 48 series 3). IMPRESSION: 5.3 cm right back mass has a morphology and location most suggestive of elastofibroma but correlation with findings at [facility] is suggested. Please correlate with timing of onset and consider PET-CT if concern for sarcoma persists. COMMENTS: The presence of pulmonary emphysema on CT is an independent risk factor for lung cancer. In the absence of a history or active diagnosis of lung cancer, it is recommended that this patient with emphysema be evaluated for enrollment in a low dose CT lung cancer screening program.
--- NOTE | 2024-07-24 16:02 | HMH.EDGENADL ---
Discharge Plan Disposition Patient Disposition: Home, Self-Care Chief Complaint: Extremity Problem,Nontraumatic Prescriptions Prescriptions: No Action ublituximab-xiiy 25 mg/mL solution 150 mg IV Q24W fluticasone propionate [Flonase Allergy Relief] 50 mcg/actuation spray,suspension 2 spray intranasal BID Qty: 16 2RF Rx Instructions: administer into each nostril donepezil 10 mg tablet 10 mg PO HS Qty: 30 5RF ibuprofen 800 mg tablet 800 mg PO Q8H Qty: 100 1RF alendronate [Fosamax] 70 mg tablet 70 mg PO WEEKLY Qty: 5 3RF acetaminophen [Tylenol] 325 mg tablet 650 mg PO QID PRN (Reason: pain) Qty: 120 0RF fluoxetine 40 mg capsule See Rx Instructions .ROUTE .COMPLEX Qty: 90 0RF Rx Instructions: TAKE 1 CAPSULE BY MOUTH ONCE DAILY FOR MOOD albuterol sulfate 90 mcg/actuation HFA aerosol inhaler 2 puff inhalation Q4-6H PRN (Reason: shortness of breath or wheezing) Qty: 8.5 10RF cyanocobalamin (vitamin B-12) 1,000 mcg/mL solution 1,000 mcg IM QMONTH 30 Days Qty: 1 3RF venlafaxine 75 mg capsule,extended release 24hr See Rx Instructions .ROUTE .COMPLEX Qty: 30 3RF Dose Instruction: Take 1 capsule by mouth once daily Rx Instructions: Take 1 capsule by mouth once daily Ubrelvy 100 mg tablet 100 mg PO ONCE PRN (Reason: migraine headache) Qty: 10 11RF Referrals Follow up/Referrals: Mickey Maldonado MD [Primary Care Provider] - See instructions Activity Restrictions/Add. Instructions Additional Instructions/Restrictions: Call your family doctor to establish care for this visit to the emergency department and schedule follow-up within 48 hours to ensure improvement. If you have any worsening of your condition or any other concerning signs or symptoms, return to the emergency department or your primary care doctor for further evaluation. Radiology read mass as elastofibroma, will still need formal follow-up and biopsy for confirmation. Clinical Impressions Clinical Impression: Multiple fractures of ribs of right side, Chest wall mass Print Language Print Language: Indonesian Discharge ED Provider: Maynor Lopez General Adult [facility] General Chief complaint: Extremity Problem,Nontraumatic Stated complaint: knot on RT shoulder blade Time Seen by Provider: 07/24/24 15:00 Mode of Arrival: Ambulatory Source of Information: Patient Limitations: No Limitations Description of Symptoms (Recalled from ER Triage Doc. by RN): pt presents with a baseball sized knot to the base of her R shoulder. pt denies pain. pt states she it appeared today, nothing present yesterday. History of Present Illness HPI narrative: Please note that above description of symptoms, in this electronic medical record under categorization of recalled from ER triage doctor by RN are reflective of an initial nursing assessment, however, is not reflective of my full history and physical exam that was personally taken and clarified. Consequentially, this preceding description of symptoms, which may include the patient's categorized chief complaint in the EMR, do not reflect my personal clinical impression, and the ultimate description of history of present illness and patient stated complaints should be deferred to this section of the note. Unless stated otherwise or congruent with this section of the note, additional signs, symptoms, or incongruence should be interpreted as inaccurate with my clinical impression. Related Data Home Medications ?Medication ?Instructions ?Recorded ?Confirmed ublituximab-xiiy 25 mg/mL 150 mg IV Q24W 02/09/24 07/19/24 intravenous solution Previous Rx's ?Medication ?Instructions ?Recorded acetaminophen 325 mg tablet 650 mg (2 x 325 mg) PO QID PRN 03/03/23 (Tylenol) pain #120 tabs cyanocobalamin (vitamin B-12) 1,000 mcg IM QMONTH 30 days #1 mL 11/07/23 1,000 mcg/mL injection solution fluticasone propionate 50 2 spray intranasal BID #16 grams 12/06/23 mcg/actuation nasal spray,suspension (Flonase Allergy Relief) fluoxetine 40 mg capsule See Rx Instructions .Route 01/30/24 .COMPLEX Depression #90 caps venlafaxine 75 mg capsule,extended See Rx Instructions .Route 04/19/24 release 24 hr .COMPLEX #30 caps ibuprofen 800 mg tablet 800 mg PO Q8H Pain #100 tabs 05/09/24 albuterol sulfate 90 mcg/actuation 2 puff inhalation Q4-6H PRN 06/05/24 aerosol inhaler shortness of breath or wheezing #8.5 grams donepezil 10 mg tablet 10 mg PO HS #30 tabs 06/19/24 ubrogepant 100 mg tablet (Ubrelvy) 100 mg PO ONCE PRN migraine 06/19/24 headache #10 tabs alendronate 70 mg tablet (Fosamax) 70 mg PO WEEKLY #5 tabs 07/19/24 Allergies Allergy/AdvReac Type Severity Reaction Status Date / Time clarithromycin (From BIAXIN) Allergy Intermediate I-RASH Verified 07/19/24 13:21 erythromycin base Allergy Intermediate I-RASH Verified 07/19/24 13:21 (ERYTHROMYCIN BASE) codeine (CODEINE) Allergy Unknown NA-NAUSEA Verified 07/19/24 13:21 Penicillins (PENICILLINS) Allergy Unknown NA-NAUSEA Verified 07/19/24 13:21 [facility] Disclaimer: The information contained in this section may have been updated after the patient was seen, as this information can be updated by other users. Medical History Headache Chronic otitis media with serous effusion Tinnitus Hearing loss in left ear Generalized anxiety disorder Recurrent major depression resistant to treatment Seizures Precipitated by blood harrell, described as alteration in awareness, confusion, hallucinations in the setting of abnormal EEG, brain MRI. Currently asymptomatic since sometime in 2021. Multiple sclerosis Relapsing remitting MS diagnosed 11/2011 with probable onset 2006. Abnormal MRI, LP with OCPs greater than 5 present in CSF not serum, clinical presentation. Prior evaluation by Dr. Shine Tapia and Poly Aguirre. Vitamin B12 deficiency Breast cancer SOB (shortness of breath) CODI (obstructive sleep apnea) Tobacco abuse Half a pack per day Chest pain Surgical History History of tonsillectomy H/O lumpectomy Family History Father Cancer Grandfather , paternal FHx: mental illness completed suicide by drowning. -he was sick; had been complaining of side pain -they sent him to [facility] for a while -the day of discharge he completed suicide Social History Smoking Status: Current every day smoker tobacco type: cigarettes second hand exposure: No alcohol intake: never counseling given: No substance use type: denies use counseling given: No current occupational status: employed and other details: works at [employer] in the last 8 weeks: None adopted: No caregiver/support person: No foster care: No household members: none housing: other details: mobile home lives independently: Yes marital status: single number of children: 0 number of grandchildren: 0 education level: high school current occupation: at [employer] pets and animals: Yes pets and animals: cat(s) Hx Recent Travel: No sexually active: No caffeine: Yes physical activity: none brooke/protestant: None special brooke needs: No working smoke detector in home: Yes fire extinguisher in home: Yes carbon monox detector in home: No firearms in home: Yes do you feel safe at home: Yes victim of physical abuse: No victim of emotional abuse: No victim of sexual abuse: No would you like helpful sources: No Other Medical History Have you received the Flu Vaccine for this season: Yes Have you received the Pneumonia Vaccine: Yes ROS Obtained: Yes All systems reviewed & no additional complaints except as documented Physical Exam General General appearance: alert Head Head exam: atraumatic and normocephalic Eye Eye exam: Present normal appearance, PERRL and EOMI Neck Neck exam: Present normal inspection, full ROM and trachea midline Chest Chest inspection: Present other (Soft, mobile mass approximately 6 cm and circular on posterior/right upper chest wall overlying scapula. No axillary lymphadenopathy.); Absent tenderness Respiratory Respiratory exam: Present normal lung sounds bilaterally; Absent respiratory distress, wheezes, stridor, accessory muscle use or prolonged expiratory phase Cardiovascular Cardiovascular exam: Present other (Pulses equal symmetric in upper and lower extremities) Abdominal Exam Abdominal exam: Present soft; Absent distention, tenderness or pulsatile mass Extremities Exam Extremities exam: Absent edema Neurological Exam Neurological exam: Present alert, oriented X3 and CN II-XII intact; Absent motor sensory deficit Skin Skin exam: Present warm and dry; Absent diaphoresis or erythema Medical Decision Making Medical Records Medical records reviewed: Yes I reviewed the patient's medical records. Screening: Per USPSTF and CDC recommendations, given the prevalence of disease in our region, it is our hospital?s policy to screen for HIV and viral Hepatitis for all patients aged 18 and over and those with ongoing risk factors. Scott Inquiry Pt receiving controlled substance: No Scott was queried for this patient: No Vital Signs: 07/24/24 15:16 Temperature 98.1 F Temperature Source Oral Pulse Rate [Left] 88 Respiratory Rate 18 Blood Pressure [Right Arm] 125/63 Blood Pressure Mean [Right Arm] 83 Blood Pressure Source [Right Arm] Automatic Cuff Blood Pressure Position [Right Arm] Sitting 02 Sat by Pulse Oximetry 99 Oxygen Delivery Method Room Air Lab Data Lab Results 07/24/24 15:58: Sodium 140, Potassium 4.1, Chloride 105, Carbon Dioxide 28, Anion Gap 11.1, BUN 16, Creatinine 0.60, Estimated Creat Clear 56, Estimated GFR 101, Est GFR ( Amer) 123, Glucose 60 L, Calcium 9.5, Total Bilirubin 0.5, AST 44 H, ALT 26, Alkaline Phosphatase 99, Total Creatine Kinase 159 H, Total Protein 6.6, Albumin 4.4, Globulin 2.2, Albumin/Globulin Ratio 2.0 H 07/24/24 16:08: WBC 9.0, RBC 4.37, Hgb 13.7, Hct 40.5, MCV 92.7, MCH 31.4 H, MCHC 33.9, RDW 13.6, Plt Count 311, MPV 7.3 L, Neut % (Auto) 69.7, Lymph % (Auto) 16.9, Eaton % (Auto) 8.0, Eos % (Auto) 4.1, Baso % (Auto) 1.2, Neut # (Auto) 6.3, Lymph # (Auto) 1.5, Eaton # (Auto) 0.7, Eos # (Auto) 0.4, Baso # (Auto) 0.1 07/24/24 16:08 07/24/24 15:58 Orders (Tests/Meds): ED MEDICATIONS Discontinued Medications Generic Name Dose Route Start Last Admin Trade Name Cole PRN Reason Stop Dose Admin Iopamidol 75 ml 07/24/24 17:19 07/24/24 17:20 Iopamidol-370 (76%);100ml Bottle IV 07/24/24 17:20 75 ml ONCE ONE Administration Sodium Chloride 10 ml 07/24/24 17:19 07/24/24 17:20 Sodium Chloride 0.9% 10ml Syr (Rad Only) IV 07/24/24 17:20 10 ml ONCE ONE Administration ORDERS Category Date Time Status CT chest wo/w con Stat Cat Scan 07/24/24 15:41 Completed CXR 2 view (NOT portable) [XR chest 2V] Stat Exams 07/24/24 15:31 Completed POCUS Point of Care (ER Only) Stat Exams 07/24/24 15:31 Completed CBC w/Auto Diff [Complete Blood Count Auto Diff] Stat Lab 07/24/24 16:08 Completed CK [Creatine Kinase] Stat Lab 07/24/24 15:58 Completed CMP [Comprehensive Metabolic Panel] Stat Lab 07/24/24 15:58 Completed Medical Decision Narrative: This is a 63-year-old female history of OR as in previous history of breast cancer presenting with lump on her back. Patient states that she noticed it yesterday, 07/23. Nontender, did not notice until somebody else pointed it out. Does not know how long it has been there. Does not think it has been there in the past. No chest pain, shortness of breath, nausea, vomiting, fevers, chills, night sweats, weight loss, or any other concerns. Came in for further evaluation. History obtained the patient. On arrival, very well-appearing. Bilateral breath sounds normal. Patient has 6 cm circular soft, mobile mass overlying right scapula. No overlying skin changes. Differential includes benign mass including lipoma, malignancy, among others. Bedside [id number] ultrasound was performed, masses of mixed density, does not resemble lipoma. Has hyperdense core with apparent vascularity. More concerning for malignancy. Basic labs were drawn. On independent interpretation, these demonstrated nonactionable findings. CT of the chest with and without contrast was ordered. Large mass present over old rib fractures of varied attenuation, unknown etiology. Consistent with elastofibroma, per radiology read, but still recommended follow-up. I feel is appropriate. Because patient at baseline without signs or symptoms of clinical decompensation, deemed appropriate for discharge. Results were relayed to patient who voiced understanding and were agreeable to outpatient management and follow up. I discussed my clinical impression with patient and answered all questions. At this time, the evidence for any other entities in the differential is insufficient to warrant any further testing or ED observation. This was explained as well. Advisory was given that persistent or worsening symptoms require further evaluation. I confirmed the understanding of this discussion. Automobile Racer disclaimer Much of this encounter note is an electronic internet sales director spoken language to printed text. Electronic internet sales director of the spoken language may permit errors. Although I have reviewed the note, some errors may still exist. Procedures Limited Ultrasound Indication:: Limited soft tissue ultrasound Indication: Painless soft tissue mass Identified structures: Location: Posterior chest wall right-sided Findings: Variable echogenicity of posterior chest wall mass concerning for malignancy more so than benign mass Impression: Posterior soft tissue chest wall mass with variable echogenicity. Unknown significance or etiology Images were saved to permanent archive The study was technically adequate Soft Tissue CPT Codes: CPT Neck: 26386-86 CPT Upper extremity: 65706-09 CPT Axilla: 59525-69 CPT Chest wall: 51453-20 CPT Breast: 63020-65-KA/LT (complete), 95681-60-KO/LT (limited), CPT Upper Back: 38059-34 CPT Lower Back: 43221-56 CPT Abdominal Wall: 90548-12 CPT Pelvic Wall: 89549-09 CPT Lower Extremity: 19310-72 CPT Other Soft Tissue: 53857-74 This study was performed by me, and I personally interpreted all images/videos. Based on my clinical judgement, these images were added and did not necessitate further ultrasound imaging. Critical Care Critical Care Time Critical Care Time: No
[2024-07-24 16:25] LABS: Basophils # 0.1 K/mm3 (0-0.2); Basophils % 1.2 % (0.1-2.0); Eosinophils # 0.4 K/mm3 (0.0-0.4); Eosinophils % 4.1 % (0.1-12.0); Hematocrit 40.5 % (37.0-47.0); Hemoglobin 13.7 g/dL (12.2-16.2); Lymphocytes # 1.5 K/mm3 (0.7-4.5); Lymphocytes % 16.9 % (10-50); Mean Corpuscular HGB Conc 33.9 g/dL (31.8-35.4); Mean Corpuscular Hemoglobin 31.4 pg (27.0-31.2); Mean Corpuscular Volume 92.7 fl (81-99); Mean Platelet Volume 7.3 fl (7.4-10.4); Monocytes # 0.7 K/mm3 (0.1-1.0); Neutrophils # 6.3 K/mm3 (1.8-7.8); Neutrophils % 69.7 % (37.0-80.0); Platelet Count 311 K/mm3 (142-424); Red Blood Count 4.37 M/mm3 (4.20-5.40); Red Cell Distribution Width 13.6 % (11.5-17.5)
[2024-07-24 16:40] LABS: Creatine Kinase 159 U/L (30-135); Potassium 4.1 mmoL/L (3.5-5.1)
[2024-07-24 16:41] LABS: Alanine Aminotransferase 26 U/L (12-78); Albumin Level 4.4 g/dl (3.5-5.0); Alkaline Phosphatase 99 U/L (38-126); Anion Gap 11.1 mEq/L (5-15); Aspartate Amino Transferase 44 U/L (14-36); Bilirubin,Total 0.5 mg/dl (0.2-1.3); Blood Urea Nitrogen 16 mg/dl (7-17); Calcium 9.5 mg/dl (8.4-10.2); Carbon Dioxide 28 mmol/L (22.0-30.0); Chloride 105 mmol/L (98-107); Creatinine Clearance Estimated 56 mL/min (50-200); Estimated Glomerular Filt Rate 101 ml/min (>60); GFR (African American) 123 ML/MIN (>60); Globulin 2.2 g/dL (1.3-3.2); Glucose 60 mg/dl (74-100); Sodium 140 mmol/L (136-145); Total Protein,Serum 6.6 g/dl (6.3-8.2)
[2024-07-24] MEDS: IOPAMIDOL-370 (76%);100ML BOTTLE 75 ML IV (17:20)
[2024-07-24] MEDS: SODIUM CHLORIDE 0.9% 10ML SYR (RAD ONLY) 10 ML IV (17:20)
[2024-07-24 18:40] VITALS: BP 119/67; PULSE 84; RESP 16; TEMP 36.6
== END 2024-07-24 18:41 | disposition home or self-care (01) ==
PROVIDERS: Emergency Provider Emergency Medicine; PCP Family Medicine
DX: R22.2 Localized swelling, mass and lump, trunk (principal); S22.41XA Multiple fractures of ribs, right side, initial encounter for closed fracture; M25.511 Pain in right shoulder
CPT/HCPCS: 71046; 71270; 80053; 82550; 85025; 99285; Q9967

== ENCOUNTER 2024-09-27 15:26 | Outpatient (CLI) | payer MEDICARE, SELFPAY ==
[2024-09-27 17:12] LABS: Blood Urea Nitrogen 17 mg/dl (7-17); Estimated Glomerular Filt Rate 125 ml/min (>60); GFR (African American) 151 ML/MIN (>60)
== END 2024-09-27 23:59 | disposition home or self-care (01) ==
LOC: LAB 15:26
PROVIDERS: PCP Family Medicine; Visit Provider Student in an Organized Health Care Education/Training Program
DX: Z01.812 Encounter for preprocedural laboratory examination (principal)
CPT/HCPCS: 36415; 82565; 84520

== ENCOUNTER 2024-09-28 09:19 | Outpatient (CLI) | payer MEDICARE, SELFPAY ==
--- NOTE | 2024-09-28 09:24 | MR_ITS ---
FINAL REPORT TECHNIQUE: MR examination of the chest was performed with and without intravenous contrast to evaluate a right posterior chest wall mass seen on CT dated 07/24/2024. CLINICAL HISTORY: ELASTOFIBROMA lump on right posterior of chest , marker placed on spot , prior ct scan done pt stated the spot has went down in size it was larger PT ALSO HAD BREAST CANCER IN 2001, PT ALSO HAD A LYMPECTOMY IN 2001 ON THE RIGHT SIDE COMPARISON: CT of the chest 07/24/2024 FINDINGS: MRI CHEST WITH AND WITHOUT CONTRAST: MR examination was performed with and without contrast to evaluate a mass seen on CT just inferior to the right scapula. The previously noted soft tissue density adjacent to the right posterolateral eighth and ninth rib fractures has resolved since the prior CT. There is some enhancement associated with the healing rib fractures, which is consistent with normal enhancement with bony healing. There is adjacent pleural thickening and enhancement also noted, consistent with healing prior posttraumatic change. There is pleural and parenchymal enhancement best seen on images #48 through 55 involving the right lower lobe, which corresponds to the linear density seen on the prior CT. This likely represents a scar or residual infiltrate. No mass or abnormal enhancement is noted in the region of the scapula. No adenopathy is identified. IMPRESSION: No enhancing mass to indicate recurrent tumor in this patient who had a previously resected elastofibroma. Resolved soft tissue density surrounding the eighth and ninth rib fractures. This may reflect resolved posttraumatic change. Reviewed, Interpreted and Dictated by Mark Mendez MD Transcribed by Radha Torres Authenticated and [facility]
[2024-09-28] MEDS: GADOTERIDOL INJ 20ML SYRINGE 13 ML IV ×2 (10:36→16:28)
[2024-09-28] MEDS: SODIUM CHLORIDE 0.9% 10ML SYR (RAD ONLY) 10 ML IV (10:36)
--- NOTE | 2024-09-28 16:28 | HMH.ITSTN ---
PT HAD TO COME BACK AND GET MORE IMAGING PER THE RADIOLOGIST ALSO HAD TO GIVE MORE CONTRAST , PT SENT HOME WITH BOTTLE OF WATER
== END 2024-09-28 23:59 | disposition home or self-care (01) ==
PROVIDERS: PCP Family Medicine; Visit Provider Student in an Organized Health Care Education/Training Program
DX: D21.9 Benign neoplasm of connective and other soft tissue, unspecified (principal)
CPT/HCPCS: 71552; A9576

== ENCOUNTER 2024-10-18 14:58 | Outpatient (CLI) | payer MEDICARE, SELFPAY ==
[2024-10-18 16:03] LABS: Basophils # 0.1 K/mm3 (0-0.2); Basophils % 0.8 % (0.1-2.0); Eosinophils # 0.1 K/mm3 (0.0-0.4); Eosinophils % 1.7 % (0.1-12.0); Hematocrit 41.8 % (37.0-47.0); Hemoglobin 13.8 g/dL (12.2-16.2); Lymphocytes # 1.7 K/mm3 (0.7-4.5); Lymphocytes % 23.3 % (10-50); Mean Corpuscular Hemoglobin 29.9 pg (27.0-31.2); Mean Corpuscular Volume 90.7 fl (81-99); Mean Platelet Volume 9.5 fl (7.4-10.4); Monocytes # 0.6 K/mm3 (0.1-1.0); Neutrophils # 4.8 K/mm3 (1.8-7.8); Neutrophils % 66.1 % (37.0-80.0); Platelet Count 338 K/mm3 (142-424); Red Blood Count 4.61 M/mm3 (4.20-5.40); Red Cell Distribution Width 13.2 % (11.5-17.5); White Blood Count 7.3 K/mm3 (4.8-10.8)
[2024-10-18 16:31] LABS: Alanine Aminotransferase 28 U/L (12-78); Albumin Level 4.6 g/dl (3.5-5.0); Albumin/Globulin Ratio 2.6 (1.1-1.8); Alkaline Phosphatase 96 U/L (38-126); Aspartate Amino Transferase 34 U/L (14-36); Bilirubin,Total 0.3 mg/dl (0.2-1.3); Blood Urea Nitrogen 17 mg/dl (7-17); Calcium 9.4 mg/dl (8.4-10.2); Carbon Dioxide 30 mmol/L (22.0-30.0); Chloride 102 mmol/L (98-107); Estimated Glomerular Filt Rate 101 ml/min (>60); GFR (African American) 122 ML/MIN (>60); Globulin 1.8 g/dL (1.3-3.2); Glucose 88 mg/dl (74-100); Sodium 139 mmol/L (136-145); Total Protein,Serum 6.4 g/dl (6.3-8.2)
== END 2024-10-18 23:59 | disposition home or self-care (01) ==
LOC: LAB 15:00
PROVIDERS: PCP Family Medicine; Visit Provider Psychiatry & Neurology Neurology
DX: G35 Multiple sclerosis (principal)
CPT/HCPCS: 36415; 80053; 85025

== ENCOUNTER 2024-10-29 08:32 | Outpatient (CLI) | payer MEDICARE, SELFPAY ==
[2024-10-29] VITALS (7 sets, daily range): BP systolic 115–125; BP diastolic 60–68; PULSE 62–66; RESP 18; TEMP 36.7; O2SAT 99
[2024-10-29] MEDS: diphenhydrAMINE 50MG CAPSULE 50 MG PO (08:50)
[2024-10-29] MEDS: METHYLPREDNISOLONE SOD SUCC 125MG VIAL 125 MG IV (08:50)
[2024-10-29] MEDS: ACETAMINOPHEN 325MG TAB 650 MG PO (08:50)
[2024-10-29] MEDS: UBLITUXIMAB XIIY IV (09:24)
[2024-10-29] MEDS: SODIUM CHLORIDE 0.9% IV (09:24)
[2024-10-29] MEDS: SODIUM CHLORIDE 0.9% 50ML BAG 50 ML IV (09:25)
== END 2024-10-29 12:30 | disposition home or self-care (01) ==
LOC: INF 08:33
PROVIDERS: PCP Family Medicine; Visit Provider Psychiatry & Neurology Neurology
DX: G35 Multiple sclerosis (principal)
CPT/HCPCS: 96413; 96415; J2329; J2919

== ENCOUNTER 2025-03-26 13:12 | Outpatient (CLI) | payer MEDICARE, SELFPAY ==
--- OUTSIDE RECORDS SUMMARY | 2025-03-20 10:00 | XMS_ITS | Encounter Summary ---
Author Organization Healthcare Address [address] [place] [address] Care Team Providers Care Voltage Inspector Name Role Phone Mickey Maldonado MD Primary Care Provider Leonila Roy MD Unavailable + [phone] Encounter Details Date Type Department Care Team (Late st Contact Info) Description 03/20/2025 10:00 AM EDT Office Visit [place] [facility] [address] [place] [address] Leonila Doe MD [address] [place] [address] MS (multiple sclerosis) (CMS/HCC) (Primary Dx) Social History Tobacco Use Types Packs/Day Years Used Date Smoking Tobacco: Every Day Cigarettes 0.2 15 Started: 01/30/2016 Smokeless Tobacco: Never Tobacco [...] epilepticus Epilepsy Migraine 1981 MS (multiple sclerosis) ([facility]) 2013 Other amnesia Memory loss Personal history [...] BREAST LUMPECTOMY N/A Breast Surgery Lumpectomy from [facility] TONSILLECTOMY N/A Tonsillectomy from [facility] [3] Outpatient Encounter Medications as of 03/20/2025 [...] documented in this encounter Plan of Treatment Not on file documented as of this encounter Results * (ABNORMAL) CBC and Differential (03/20/2025 11:21 AM EDT) WBC Count 11.40(H) 3.70 - 10.30 10*3/uL LAB HEMATOLOGY METHOD 03/20/2025 1:06 PM EDT [facility] RBC Count 4.56 3.90 - 5.20 10*6/uL LAB HEMATOLOGY METHOD 03/20/2025 1:06 PM EDT [facility] HGB 14.1 11.2 - 15.7 g/dL LAB HEMATOLOGY METHOD 03/20/2025 1:06 PM EDT [facility] HCT 42.6 34.0 - 45.0 % LAB HEMATOLOGY METHOD 03/20/2025 1:06 PM EDT [facility] Platelet Count 356 155 - 369 10*3/uL LAB HEMATOLOGY METHOD 03/20/2025 1:06 PM EDT [facility] MCV 93 79 - 98 fL LAB HEMATOLOGY METHOD 03/20/2025 1:06 PM EDT [facility] MCH 30.9 26.0 - 32.0 pg LAB HEMATOLOGY METHOD 03/20/2025 1:06 PM EDT [facility] MCHC 33.1 30.7 - 35.5 g/dL LAB HEMATOLOGY METHOD 03/20/2025 1:06 PM EDT [facility] RDW 13.3 11.5 - 14.5 % LAB HEMATOLOGY METHOD 03/20/2025 1:06 PM EDT [facility] MPV 10.0 8.8 - 12.5 fL LAB HEMATOLOGY METHOD 03/20/2025 1:06 PM EDT [facility] nRBC 0.0 <=0.0 per 100 WBCs LAB HEMATOLOGY METHOD 03/20/2025 1:06 PM EDT [facility] Differential Type Automated LAB HEMATOLOGY METHOD 03/20/2025 1:06 PM EDT [facility] Neutrophils % 77 % LAB HEMATOLOGY METHOD 03/20/2025 1:06 PM EDT [facility] Lymphocytes % 11 % LAB HEMATOLOGY METHOD 03/20/2025 1:06 PM EDT [facility] Monocytes % 9 % LAB HEMATOLOGY METHOD 03/20/2025 1:06 PM EDT [facility] Eosinophils % 1 % LAB HEMATOLOGY METHOD 03/20/2025 1:06 PM EDT [facility] Basophils % 1 % LAB HEMATOLOGY METHOD 03/20/2025 1:06 PM EDT [facility] Immature Granulocytes % 1 % LAB HEMATOLOGY METHOD 03/20/2025 1:06 PM EDT [facility] Neutrophils Absolute 8.79(H) 1.60 - 6.10 10*3/uL LAB HEMATOLOGY METHOD 03/20/2025 1:06 PM EDT [facility] Lymphocytes Absolute 1.29 1.20 - 3.90 10*3/uL LAB HEMATOLOGY METHOD 03/20/2025 1:06 PM EDT [facility] Monocytes Absolute 1.07(H) 0.30 - 0.90 10*3/uL LAB HEMATOLOGY METHOD 03/20/2025 1:06 PM EDT [facility] Eosinophils Absolute 0.07 0.00 - 0.50 10*3/uL LAB HEMATOLOGY METHOD 03/20/2025 1:06 PM EDT [facility] Basophils Absolute 0.12(H) 0.00 - 0.10 10*3/uL LAB HEMATOLOGY METHOD 03/20/2025 1:06 PM EDT [facility] Immature Granulocytes Absolute 0.06 0.00 - 0.06 10*3/uL LAB HEMATOLOGY METHOD 03/20/2025 1:06 PM EDT [facility] Blood Venous blood specimen / Unknown Venipuncture / Unknown 03/20/2025 11:21 AM EDT 03/20/2025 11:21 AM EDT Narrative [facility] - 03/20/2025 1:06 PM EDT Therapeutic decision making should be based on absolute values, rather than percentages. us Leonila Doe MD LAB BLOOD ORDERABLES F inal Result [facility] [address] [place] [address] * (ABNORMAL) Comprehensive Metabolic Panel, Plasma (03/20/2025 11:21 AM EDT) Glucose, Plasma 88 74 - 99 mg/dL 03/20/2025 1:19 PM EDT [facility] BUN, Plasma 11 8 - 23 mg/dL 03/20/2025 1:19 PM EDT [facility] Creatinine, Plasma 0.57(L) 0.60 - 1.10 mg/dL 03/20/2025 1:19 PM EDT [facility] BUN/Creatinine Ratio 19 03/20/2025 1:19 PM EDT [facility] Sodium, Plasma 142 136 - 145 mmol/L 03/20/2025 1:19 PM EDT [facility] Potassium, Plasma 4.0 3.6 - 4.9 mmol/L 03/20/2025 1:19 PM EDT [facility] Chloride, Plasma 104 97 - 107 mmol/L 03/20/2025 1:19 PM EDT [facility] CO2, Plasma 28 22 - 29 mmol/L 03/20/2025 1:19 PM EDT [facility] Anion Gap 10 6 - 16 mmol/L 03/20/2025 1:19 PM EDT [facility] Total Calcium, Plasma 9.2 8.9 - 10.2 mg/dL 03/20/2025 1:19 PM EDT [facility] Total Protein 6.4 6.3 - 7.9 g/dL 03/20/2025 1:19 PM EDT [facility] Albumin, Plasma 4.1 3.5 - 5.2 g/dL 03/20/2025 1:19 PM EDT [facility] AST, Plasma 26 10 - 35 U/L 03/20/2025 1:19 PM EDT [facility] ALT, Plasma 30 10 - 35 U/L 03/20/2025 1:19 PM EDT [facility] Alkaline Phosphatase, Plasma 108 46 - 142 U/L 03/20/2025 1:19 PM EDT [facility] Total Bilirubin, Plasma 0.4 0.2 - 1.1 mg/dL 03/20/2025 1:19 PM EDT [facility] eGFRcr 102.3 mL/min/1.7 3m*2 03/20/2025 1:19 PM EDT [facility] Comment:Reported eGFRcr in m L/min/1.73m2 is based the CKD-EPI 2020 equation that does not use a race coefficient. Blood Venous blood specimen / Unknown Venipuncture / Unknown 03/20/2025 11:21 AM EDT 03/20/2025 11:21 AM EDT us Leonila Doe MD LAB BLOOD ORDERABLES F inal Result [facility] [address] [place] [address] documented in this encounter Visit Diagnoses Diagnosis MS (multiple sclerosis) (CMS/[facility])- Primary Multiple sclerosis documented in this encounter Additional Health Concerns Assessment Noted Time PHQ-9 Depression Total Score: 5 08/30/19 25 11:31 AM EST A fall risk assessment has been complete d for the patient 03/20/2025 10:08 AM EDT A Body Mass Index follow-up plan has been documented for the patient 03/20/2025 11:01 AM EDT documented as of this encounter Care Teams Voltage Inspector Relationship Specialty Start Date End Date Mickey Maldonado MD PCP - General Family Medicine 06/24/23 Leonila Doe MD [address] [address] Consulting Physician Neurology 06/24/23 documented as of this encounter
--- OUTSIDE RECORDS SUMMARY | 2025-03-26 13:15 | XMS_ITS | Encounter Summary ---
Author Organization [facility] Address [address] [place] [address] Care Team Providers Care Load Mixer Name Role Phone Mickey Maldonado MD Primary Care Provider Leonila Roy MD Unavailable + [phone] Encounter Details Date Type Department Care Team (Latest Contact Info) Description 03/17/2025 Travel Social History Tobacco Use Types Packs/Day Years Used Date Smoking Tobacco: Every Day Cigarettes Smokeless Tobacco: Never Alcohol Use Standard Drinks/Week Comments Never 0 [...] on file documented as of this encounter Plan of Treatment Not on file documented as of this encounter Visit Diagnoses Not on filedocumented in this encounter Additional Health Concerns Assessment Noted Time PHQ-9 Depression Total Score: 5 08/30/19 25 11:31 AM EST A fall risk assessment has been complete d for the patient 10/15/2024 11:33 AM EST A Body Mass Index follow-up plan has been documented for the patient 10/15/2024 11:11 PM EST documented as of this encounter Care Teams Load Mixer Relationship Specialty Start Date End Date Mickey Maldonado MD PCP - General Family Medicine 06/24/23 AvLeonila peres MD [address] [facility] [address] [place] [address] Consulting Physician Neurology 06/24/23 documented as of this encounter
--- OUTSIDE RECORDS SUMMARY | 2025-03-26 13:15 | XMS_ITS | Encounter Summary ---
Author Organization Healthcare Address [address] [place] [address] Care Team Providers Care Sous Chef Name Role Phone Mickey Maldonado MD Primary Care Provider Leonila Roy MD Unavailable + [phone] Encounter Details Date Type Department Care Team (Late st Contact Info) Description 03/22/2025 Telephone [facility] [address] [place] [address] Leonila Doe MD [address] [place] [address] Social History Tobacco Use Types Packs/Day Years Used Date Smoking Tobacco: Every Day Cigarettes 0.2 15 Started: 01/30/2016 Smokeless Tobacco: Never Alcohol Use Standard Drinks/Week [...] on file documented as of this encounter Miscellaneous Notes * Telephone Encounter - Keyur Strong W - 03/22/2025 3:01 PM EDT Patient Phone Message Reason for Call: Patient calling about lab results would like call back about some elevated levels Best contact number and optimal time of day to reach caller: [phone] Note: Please do not reply to this message. Follow-up communication and further actions as a result of this message need to be communicated with the patient directly, if the patient is not active onMyChart. If the patient is active on MyChart, they will receive notification of the communication/outcome via Nomin[employer]. documented in this encounter Plan of Treatment [...] documented as of this encounter Care Teams Sous Chef Relationship Specialty Start Date End Date Mickey Maldonado MD PCP - General Family Medicine 06/24/23 Leonila Doe MD [id number] [place] [address] Consulting Physician Neurology 06/24/23 documented as of this encounter
--- OUTSIDE RECORDS SUMMARY | 2025-03-26 13:15 | XMS_ITS | Clinical Summary ---
Author Organization [facility] Address [facility] [place] [place] [address] Care Team Providers Care Unleavened Dough Mixer Name Role Phone Unavailable Primary Care Provider Unavailabl e Source Comments This information has been disclosed to you from confidential records protectedfrom disclosure by state law. You shall make no further disclosure of thisinformation without the specific, written, and informed release of theindividual to whom it pertains, or as otherwise permitted by law. A generalauthorization for the release of medical or other information is not sufficientfor the purposes of therelease of HIV test results or diagnoses. [id number] Social History Tobacco Use Types Packs/Day Years Used Date Smoking Tobacco: Never Assessed Comments Unknown Sex and Gender Information Value Date Recorded Sex Assigned at Not on file Legal Sex Female 9:26 AM EDT Gender Identity Not on file Sexual Orientation Not on file Plan of Treatment Not on file
--- OUTSIDE RECORDS SUMMARY | 2025-03-26 13:15 | XMS_ITS | Encounter Summary ---
Author Organization [facility] Address [address] [place] [address] Care Team Providers Care Boarder Steam Name Role Phone Mickey Maldonado MD Primary Care Provider Leonila Roy MD Unavailable + [phone] Encounter Details Date Type Department Care Team (Latest Contact Info) Description 03/20/2025 Travel Social History Tobacco Use Types Packs/Day [...] documented as of this encounter Care Teams Boarder Steam Relationship Specialty Start Date End Date Mickey Maldonado MD PCP - General Family Medicine 06/24/23 Leonila Doe MD [address] [address] Consulting Physician Neurology 06/24/23 documented as of this encounter
--- OUTSIDE RECORDS SUMMARY | 2025-03-26 13:15 | XMS_ITS | Encounter Summary ---
Author Organization [facility] Address [address] [place] [address] Care Team Providers Care Edge Banding Machine Offbearer Name Role Phone Brodie Castro MD Primary Care Provider + [phone] Mickey Maldonado MD Primary Care Provider Alyssa vailable Leonila Doe MD Unavailable [phone] Reason for Referral * Consultation (Routine) - Closed Specialty Diagnoses / Procedures Referred By Contac t Referred To Contact Neurology Diagnoses Multiple sclerosis (CMS/HCC) Amnesia memory loss Pietro Inman APRN [address] [place] [address] Phone: tel: fax: Leonila Doe MD [address] [facility] [address] [place] [address] Phone: tel: fax: Referral ID Status Reason Start Date Expiration Date V isits Requested Visits Authorized [id number] Closed Specialty Services Required 03/09/2023 09/07/2024 1 1 Encounter Details Date Type Department Care Team (Late st Contact Info) Description 03/09/2023 Community [facility] [address] [place] [address] Pietro Inman APRN [address] [place] [address] Multiple sclerosis (CMS/HCC) (Primary Dx); Amnesia memory loss Social History Tobacco Use Types Packs/Day Years Used Date Smoking Tobacco: Every Day Comments Unknown Sex and Gender Information Value Date Recorded Sex Assigned at Not on file Legal Sex Female 8:50 PM EDT Gender Identity Not on file Sexual Orientation Not on file documented as of this encounter Plan of Treatment Scheduled Referrals Name Type Priority Associated Diagnoses Order Schedule Ambulatory referral to Neurology Outpatient Referral Routine Multiple sclerosis (CMS/HCC) Amnesia memory loss Expected: 03/09/2023, Expires: 09/09/2024 documented as of this encounter Visit Diagnoses Diagnosis Multiple sclerosis (CMS/HCC)- Primary Multiple sclerosis Amnesia memory loss Memory loss documented in this encounter Care Teams Edge Banding Machine Offbearer Relationship Specialty Start Date End Date Brodie Castro MD [address] [place] [address] PCP - General 12/26/20 06/23/23 Mickey Maldonado MD [address] [place] [address] PCP - General Family Medicine 06/24/23 Leonila Doe MD [address] [place] [address] Consulting Physician Neurology 06/24/23 documented as of this encounter
--- OUTSIDE RECORDS SUMMARY | 2025-03-26 13:15 | XMS_ITS | Encounter Summary ---
Author Organization Healthcare Address [address] [place] [address] Care Team Providers Care Stitcher Operator Name Role Phone Mickey Maldonado MD Primary Care Provider Leonila Roy MD Unavailable + [phone] Encounter Details Date Type Department Care Team ([facility] st Contact Info) Description 07/24/2024 Orders Only External Location [address] [place] [address] Provider, External Social History Tobacco Use Types Packs/Day Years Used Date Smoking Tobacco: Every Day Smokeless Tobacco: Never Alcohol Use Standard Drinks/Week Comments Never 0 (1 standard drink = 0.6 oz pur e alcohol) Comments Unknown Sex and Gender Information Value Date Recorded Sex Assigned at Not on file Legal Sex Female 8:50 PM EDT Gender Identity Not on file Sexual Orientation Not on file documented as of this encounter Plan of Treatment Not on file documented as of this encounter Procedures Procedure Name Priority Date/Time Associated Diagnosis Comments CT OUTSIDE IMAGES 07/24/2024 5:15 PM EST documented in this encounter Results * CT OUTSIDE IMAGES (07/24/2024 5:15 PM EST) Anatomical Region Laterality Modality Computed Tomogra phy 07/24/2024 5:15 PM EST us External Provider IMG CT PROCEDURES Final Result documented in this encounter Visit Diagnoses Not on filedocumented in this encounter Additional Health Concerns Assessment Noted Time A fall risk assessment has been complete d for the patient 02/15/2024 9:07 AM EDT A Body Mass Index follow-up plan has been documented for the patient 02/15/2024 11:44 AM EDT documented as of this encounter Care Teams Stitcher Operator Relationship Specialty Start Date End Date Mickey Maldonado MD PCP - General Family Medicine 06/24/23 Leonila Doe MD [address] [facility] [address] [place] [address] Consulting Physician Neurology 06/24/23 documented as of this encounter
--- OUTSIDE RECORDS SUMMARY | 2025-03-26 13:15 | XMS_ITS | Clinical Summary ---
Author Organization [facility] Address [address] [place] [address] Care Team Providers Care Marketing Underwriter Name Role Phone Mickey Maldonado MD Primary Care Provider Leonila Roy MD Unavailable + [phone] Allergies Active Allergy Reactions Criticality Noted Date Comments Baclofen Unknown - Patient st ates they do not know rxn details Low 04/04/2014 Clarithromycin Rash,Unknown - Patie nt states they do not know rxn details,Other - please document in the comment field Medium 11/16/2011 Codeine Vomiting,Unknown - P atient states they do not know rxn details Low 04/04/2014 Erythromycin Unknown - Patient st ates they do not know rxn details,Other - please document in the comment field Low 11/16/2011 Penicillins Nausea,Unknown - Pat ient states they do not know rxn details Low 04/04/2014 Medications FLUoxetine (PROzac) 40 MG capsule Take 1 capsule (40 mg) by mouth 1 (one) time each day. Active donepezil (Aricept) 10 MG tablet 4 Active venlafaxine XR (Effexor-XR) 75 MG 24 hr capsule 4 Active ciprofloxacin (Ciloxan) 0.3 % ophthalmic solution Administer 4 drops into affected ear(s) 2 (two) times a day. 7.5 mL 5 Active dexamethasone (Decadron) 0.1 % ophthalmic solution Administer 4 drops into affected eye(s) 2 (two) times a day. Apply 4 drops to affected ear twice daily (not eyes) 5 mL 5 Active Additional Information Patient not taking.Reported on 03/20/2025 alendronate (Fosamax) 70 MG tablet Take 1 tablet (70 mg) by mouth every 7 (seven) days. Active cyanocobalamin (Vitamin B-12) 1000 MCG/ML injection Inject 1 mL (1,000 mcg) into the muscle every 30 (thirty) days. Active albuterol 108 (90 Base) MCG/ACT inhaler Inhale 2 puffs 1 (one) time as needed. 5 Active Rexulti 1 MG tablet tablet Active Active Problems Problem Noted Date Diagnosed Date Tobacco use disorder 08/27/2024 MS (multiple sclerosis) 08/18/2023 Encounters Date Type Department Care Team Description 03/22/2025 Telephone [facility] [address] [place] [address] Leonila Doe MD 03/20/2025 10:00 AM EDT Office Visit [facility] [address], [address] [place] [address] Leonila Doe MD MS (multiple sclerosis) ([facility]) (Primary Dx) 03/20/2025 Travel 03/17/2025 Travel from Last 3 Months Immunizations Immunization Administration Dates Next Due Influenza, injectable, quadrivalent 05/17/2017,1 ,06/03/2015 Influenza, seasonal, injectable 07/03/2014 Pneumococcal Polysaccharide PPV23 04/01/2020 Family History Medical History Relation Name Comments Bursitis Father Other cancer Father Anxiety disorder Mother Jenny Hernández Depression Mother Jenny Hernández Migraines Mother's Sister Heidi Gandhi Relation Name Status Comments Father Mother Jenny Green Alive Mother's Sister Heidi Ihram Alive Social History Tobacco Use Types Packs/Day Years [...] on file Sexual Orientation Not on file Last Filed Vital Signs Vital Sign Reading Time Taken Comments Blood Pressure 106/69 03/20/2025 10:05 AM EDT Pulse 72 10/15/2024 11:30 AM EST Temperature 36.7 C (98 F) 10/15/2024 11:30 AM EST Respiratory Rate 16 08/27/2024 3:08 PM EST Oxygen Saturation 96% 10/15/2024 11:30 AM EST Inhaled Oxygen Concentration - - Weight 56.8 kg (125 lb 3.5 oz) 03/20/2025 10:05 AM EDT Height 157.5 cm (5' 2 ) 03/20/2025 10:05 AM EDT Body Mass Index 22.9 03/20/2025 10:05 AM EDT Plan of Treatment Health Maintenance Due Date Last Done Comments [facility]-HIV Screening 1961 [facility]-Hepatitis C Screening 1961 [facility]-Medicare Annual Wellness (AWV) 1961 [facility]-/Child/Adol SDOH Screenings 1961 [facility]- SDOH Screenings 1979 [facility]-Adult SDOH Screenings 1979 [facility]-DTaP,Tdap,and Td Vaccines (1 - Tdap) 1980 [facility]-Pap Smear 1982 [facility]-Cervical Cancer Screening 1991 [facility]-HPV/Cotest 1991 CT Colonography 2006 Colonoscopy 2006 FIT-DNA 2006 FIT 2006 FOBT 2006 Sigmoidoscopy 2006 [facility]-Colorectal Cancer Screening 2006 [facility]-Breast Cancer Screening 2011 [facility]-Zoster Vaccines (1 of 2) 2011 [facility]-Pneumococcal Vaccine: 50+ Years (2 of 2 - PCV) 04/01/2021 04/01/2020 [facility]-RSV Vaccine: 60+ Years or (1 - Risk 60-74 years 1-dose series) 2021 [id number] Vaccine ( - season) 2024 07/19/2022, 04/28/2021, 03/29/2021 [facility]-Influenza Vaccine (#1) 04/15/202505/17, 06/01/2016, 06/03/2015, Additional history exists [facility]-Depression Screening 08/30/2025 08/30/2024, 08/15 HPV Vaccines Aged Out No longer eligi ble based on patient's age to complete this topic [facility]-HIB Vaccines Aged Out No longer e ligible based on patient's age to complete this topic [facility]-Hepatitis A Vaccines Aged Out No longer eligible based on patient's age to complete this topic [facility]-IPV Vaccines Aged Out No longer e ligible based on patient's age to complete this topic [facility]-Rotavirus Vaccines Aged Out No lo nger eligible based on patient's age to complete this topic Procedures Procedure Name Priority Date/Time Associated Diagnosis Comments COMPREHENSIVE METABOLIC PANEL, PLASMA Routine 03/20/2025 11:21 AM EDT MS (multiple sclerosis) (CMS/HCC) CBC WITH AUTO DIFFERENTIAL Routine 03/20/2025 11:21 AM EDT MS (multiple sclerosis) (CMS/HCC) from Last 3 Months Results * (ABNORMAL) CBC and Differential (03/20/2025 11:21 AM EDT) WBC Count 11.40(H) 3.70 - 10.30 10*3/uL LAB HEMATOLOGY METHOD 03/20/2025 1:06 PM EDT [facility] RBC Count 4.56 3.90 - 5.20 10*6/uL LAB HEMATOLOGY METHOD 03/20/2025 1:06 PM EDT [facility] HGB 14.1 11.2 - 15.7 g/dL LAB HEMATOLOGY METHOD 03/20/2025 1:06 PM EDT [facility] HCT 42.6 34.0 - 45.0 % LAB HEMATOLOGY METHOD 03/20/2025 1:06 PM EDT [facility] Platelet Count 356 155 - 369 10*3/uL LAB HEMATOLOGY METHOD 03/20/2025 1:06 PM EDT [facility] MCV 93 79 - 98 fL LAB HEMATOLOGY METHOD 03/20/2025 1:06 PM EDT [facility] MCH 30.9 26.0 - 32.0 pg LAB HEMATOLOGY METHOD 03/20/2025 1:06 PM EDT [facility] MCHC 33.1 30.7 - 35.5 g/dL LAB HEMATOLOGY METHOD 03/20/2025 1:06 PM EDT [facility] RDW 13.3 11.5 - 14.5 % LAB HEMATOLOGY METHOD 03/20/2025 1:06 PM EDT [facility] MPV 10.0 8.8 - 12.5 fL LAB HEMATOLOGY METHOD 03/20/2025 1:06 PM EDT [facility] nRBC 0.0 <=0.0 per 100 WBCs LAB HEMATOLOGY METHOD 03/20/2025 1:06 PM EDT [facility] Differential Type Automated LAB HEMATOLOGY METHOD 03/20/2025 1:06 PM EDT [facility] Neutrophils % 77 % LAB HEMATOLOGY METHOD 03/20/2025 1:06 PM EDT [facility] Lymphocytes % 11 % LAB HEMATOLOGY METHOD 03/20/2025 1:06 PM EDT [facility] Monocytes % 9 % LAB HEMATOLOGY METHOD 03/20/2025 1:06 PM EDT [facility] Eosinophils % 1 % LAB HEMATOLOGY METHOD 03/20/2025 1:06 PM EDT [facility] Basophils % 1 % LAB HEMATOLOGY METHOD 03/20/2025 1:06 PM EDT [facility] Immature Granulocytes % 1 % LAB HEMATOLOGY METHOD 03/20/2025 1:06 PM EDT [facility] Neutrophils Absolute 8.79(H) 1.60 - 6.10 10*3/uL LAB HEMATOLOGY METHOD 03/20/2025 1:06 PM EDT [facility] Lymphocytes Absolute 1.29 1.20 - 3.90 10*3/uL LAB HEMATOLOGY METHOD 03/20/2025 1:06 PM EDT [facility] Monocytes Absolute 1.07(H) 0.30 - 0.90 10*3/uL LAB HEMATOLOGY METHOD 03/20/2025 1:06 PM EDT [facility] Eosinophils Absolute 0.07 0.00 - 0.50 10*3/uL LAB HEMATOLOGY METHOD 03/20/2025 1:06 PM EDT [facility] Basophils Absolute 0.12(H) 0.00 - 0.10 10*3/uL LAB HEMATOLOGY METHOD 03/20/2025 1:06 PM EDT [facility] Immature Granulocytes Absolute 0.06 0.00 - 0.06 10*3/uL LAB HEMATOLOGY METHOD 03/20/2025 1:06 PM EDT [facility] Blood Venous blood specimen / Unknown Venipuncture / Unknown 03/20/2025 11:21 AM EDT 03/20/2025 11:21 AM EDT Narrative [facility] - 03/20/2025 1:06 PM EDT Therapeutic decision making should be based on absolute values, rather than percentages. Leonila Doe MD LAB BLOOD ORDERABLES F inal Result [facility] [address] [place] [address] * (ABNORMAL) Comprehensive Metabolic Panel, Plasma (03/20/2025 11:21 AM EDT) Glucose, Plasma 88 74 - 99 mg/dL 03/20/2025 1:19 PM EDT [facility] BUN, Plasma 11 8 - 23 mg/dL 03/20/2025 1:19 PM EDT [facility] Creatinine, Plasma 0.57(L) 0.60 - 1.10 mg/dL 03/20/2025 1:19 PM EDT [facility] BUN/Creatinine Ratio 19 03/20/2025 1:19 PM EDT [facility] Sodium, Plasma 142 136 - 145 mmol/L 03/20/2025 1:19 PM EDT [facility] Potassium, Plasma 4.0 3.6 - 4.9 mmol/L 03/20/2025 1:19 PM EDT [facility] Chloride, Plasma 104 97 - 107 mmol/L 03/20/2025 1:19 PM EDT [facility] CO2, Plasma 28 22 - 29 mmol/L 03/20/2025 1:19 PM EDT [facility] Anion Gap 10 6 - 16 mmol/L 03/20/2025 1:19 PM EDT [facility] Total Calcium, Plasma 9.2 8.9 - 10.2 mg/dL 03/20/2025 1:19 PM EDT [facility] Total Protein 6.4 6.3 - 7.9 g/dL 03/20/2025 1:19 PM EDT [facility] Albumin, Plasma 4.1 3.5 - 5.2 g/dL 03/20/2025 1:19 PM EDT [facility] AST, Plasma 26 10 - 35 U/L 03/20/2025 1:19 PM EDT [facility] ALT, Plasma 30 10 - 35 U/L 03/20/2025 1:19 PM EDT [facility] Alkaline Phosphatase, Plasma 108 46 - 142 U/L 03/20/2025 1:19 PM EDT [facility] Total Bilirubin, Plasma 0.4 0.2 - 1.1 mg/dL 03/20/2025 1:19 PM EDT [facility] eGFRcr 102.3 mL/min/1.7 3m*2 03/20/2025 1:19 PM EDT [facility] Comment:Reported eGFRcr in m L/min/1.73m2 is based the CKD-EPI 2020 equation that does not use a race coefficient. Blood Venous blood specimen / Unknown Venipuncture / Unknown 03/20/2025 11:21 AM EDT 03/20/2025 11:21 AM EDT us Leonila Doe MD LAB BLOOD ORDERABLES F inal Result [facility] [address] [place] [address] from Last 3 Months Insurance [employer] MED[employer] Care Teams Marketing Underwriter Relationship Specialty Start Date End Date Mickey Maldonado MD PCP - General Family Medicine 06/24/23 Leonila Doe MD [address] [address] Consulting Physician Neurology 06/24/23
[2025-03-26 13:16] LABS: Microscopic, Urine URINE MICROSCOPIC (MICROSCOPIC)
[2025-03-26 13:33] LABS: Bilirubin,Urine Negative (Negative); Color,Urine YELLOW (Yellow); Glucose,Urine (UA) Negative (Negative); Ketones,Urine Negative (Negative); Leukocyte Esterase,Urine 2+ (Negative); PH,Urine 6.0 (5.0-8.5); Protein,Urine Negative (Negative); Specific Gravity, Urine 1.025 (1.005-1.030); Urobilinogen,Urine 0.2 EU/dl (0.2)
[2025-03-26 13:35] LABS: Hematocrit 39.9 % (37.0-47.0); Hemoglobin 13.1 g/dL (12.2-16.2); Mean Corpuscular HGB Conc 32.8 g/dL (31.8-35.4); Mean Corpuscular Hemoglobin 30.2 pg (27.0-31.2); Mean Corpuscular Volume 91.9 fl (81-99); Platelet Count 324 K/mm3 (142-424); Red Blood Count 4.34 M/mm3 (4.20-5.40); White Blood Count 8.6 K/mm3 (4.8-10.8)
[2025-03-26 13:57] LABS: Bacteria,Urine 2+ /lpf; Mucus,Urine 1+ /lpf; RBC,Urine Occasional #/hpf (0-3)
[2025-03-26 16:12] LABS: Total Cells Counted 100
[2025-03-26 16:13] LABS: RBC Morphology Normal
== END 2025-03-26 23:59 | disposition home or self-care (01) ==
LOC: LAB 13:13
PROVIDERS: PCP Family Medicine; Visit Provider Specialist
DX: D72.829 Elevated white blood cell count, unspecified (principal); R63.4 Abnormal weight loss
CPT/HCPCS: 36415; 81001; 85007; 85014; 85018; 85048; 85049; 87086

== ENCOUNTER 2025-04-25 11:29 | Outpatient (CLI) | payer MEDICARE, SELFPAY ==
--- OUTSIDE RECORDS SUMMARY | 2025-03-20 10:00 | XMS_ITS | Encounter Summary ---
Author Organization Healthcare Address [address] [place] [address] Care Team Providers Care Italian Tutor Name Role Phone Mickey Maldonado MD Primary Care Provider Leonila Roy MD Unavailable + [phone] Encounter Details Date Type Department Care Team (Late st Contact Info) Description 03/20/2025 10:00 AM EDT Office Visit [place] [facility] [address], [address] [place] [address] Leonila Doe MD [address] [place] [address] MS (multiple sclerosis) (CMS/HCC) (Primary Dx) Social History Tobacco Use Types Packs/Day Years Used Date Smoking Tobacco: Every Day Cigarettes 0.3 15 Started: 01/30/2016 Smokeless Tobacco: Never Tobacco Cessation:Ready to Q uit: Not Asked; Counseling Given: Not Answered Alcohol Use Standard Drinks/Week Comments Never 0 (1 standard drink = 0.6 oz pur e alcohol) PHQ-2 Answer Date Recorded Patient Health Questionnaire-2 Score 2 08/30/2024 PHQ-9 Answer Date Recorded Patient Health Questionnaire-9 Score 5 08/30/2024 Comments Unknown Sex and Gender Information Value Date Recorded Sex Assigned at Not on file Legal Sex Female 8:50 PM EDT Gender Identity Not on file Sexual Orientation Not on file documented as of this encounter Last Filed Vital Signs Vital Sign Reading Time Taken Comments Blood Pressure 106/69 03/20/2025 10:05 AM EDT Pulse - - Temperature - - Respiratory Rate - - Oxygen Saturation - - Inhaled Oxygen Concentration - - Weight 56.8 kg (125 lb 3.5 oz) 03/20/2025 10:05 AM EDT Height 157.5 cm (5' 2 ) 03/20/2025 10:05 AM EDT Body Mass Index 22.9 03/20/2025 10:05 AM EDT documented in this encounter Miscellaneous Notes * Progress Notes - Leonila Doe MD - 03/20/2025 10:00 AM EDT Lucille is here for f/u of MS. She is on Briumvi and doing well. Her last MRI of brain was done. At her age, no DMT is required, given immunosenescence. I will order an MRI in the next 6 mo and then stop the DMT. PERSONAL REVIEW OF PRIOR DATA (MRIs, LABS) Past Medical History[1] Surgical History[2] MEDICATIONS FOR CURRENT ENCOUNTER: Encounter Medications[3] Allergies Allergies[4] Social History Social History[5] Family History Family History[6] REVIEW OF SYSTEMS: A ten system review of constitutional, cardiovascular, respiratory, musculoskeletal, endocrine, skin, SHEENT, genitourinary, psychiatric and neurologic systems was obtained and is unremarkable except as noted in the HPI. Visit Vitals BP 106/69 (BP Location: Left arm, Patient Position: Sitting) Ht 1.575 m (5' 2 ) Wt 56.8 kg (125 lb 3.5 oz) BMI 22.90 kg/m?? Smoking Status Every Day BSA 1.58 m?? General appearance: well developed, in no distress Cardiovascular: Heart regular rate and rhythm. Carotids no bruits. Neurological Examination: The patient is alert, attentive, and oriented to person, place, and time. Speech is fluent. Cranial nerve examination reveals no cranial neuropathies. Motor examination reveals normal strength, tone/bulk are N. DTRs - no pathological reflexes were present Toes - are mute Evgeny's - could not be elicited. Cerebellar exam - no FTN abn Sensory exam - was deferred Gait - N IMP MORGAN, on Briumvi. She will go off of the drug in 6 months (based on our discussion). Blood work today. F/U PRN or 6 months. Time: 45 min [1] Past Medical History: Diagnosis Date Anxiety disorder, unspecified Anxiety Breast cancer Deficiency of other specified B group vitamins Vitamin B12 deficiency Depression 1979 Dysphagia, unspecified Dysphagia Epilepsy, unspecified, not intractable, without status epilepticus Epilepsy Migraine 1981 MS (multiple sclerosis) ([facility]) 2013 Other amnesia Memory loss Personal history of malignant neoplasm of breast Personal history of malignant neoplasm of breast Personal history of malignant neoplasm, unspecified Personal history of malignant neoplasm Personal history of other diseases of the circulatory system History of hypotension Personal history of other diseases of the nervous system and sense organs History of migraine Personal history of other mental and behavioral disorders History of depression Shingles Unspecified cataract Cataracts, bilateral Vitamin D deficiency, unspecified Vitamin d deficiency [2] Past Surgical History: Procedure Laterality Date BREAST LUMPECTOMY N/A Breast Surgery Lumpectomy from [facility] TONSILLECTOMY N/A Tonsillectomy from [facility] [3] Outpatient Encounter Medications as of 03/20/2025 Medication Sig Dispense Refill alendronate (Fosamax) 70 MG tablet Take 1 tablet (70 mg) by mouth every 7 (seven) days. ciprofloxacin (Ciloxan) 0.3 % ophthalmic solution Administer 4 drops into affected ear(s) 2 (two) times a day. 7.5 mL 0 cyanocobalamin (Vitamin B-12) 1000 MCG/ML injection Inject 1 mL (1,000 mcg) into the muscle every 30 (thirty) days. donepezil (Aricept) 10 MG tablet FLUoxetine (PROzac) 40 MG capsule Take 1 capsule (40 mg) by mouth 1 (one) time each day. Rexulti 1 MG tablet tablet venlafaxine XR (Effexor-XR) 75 MG 24 hr capsule (Patient taking differently: Take 2 capsules (150 mg) by mouth daily.) albuterol 108 (90 Base) MCG/ACT inhaler Inhale 2 puffs 1 (one) time as needed. (Patient not taking:Reported on 03/20/2025) dexamethasone (Decadron) 0.1 % ophthalmic solution Administer 4 drops into affected eye(s) 2 (two) times a day. Apply 4 drops to affected ear twice daily (not eyes) (Patient not taking: Reported on 03/20/2025) 5 mL 0 No facility-administered encounter medications on file as of 03/20/2025. [4] Allergies Allergen Reactions Clarithromycin Rash, Unknown - Patient states they do not know rxn details and Other - please document in the comment field Baclofen Unknown - Patient states they do not know rxn details Codeine Vomiting and Unknown - Patient states they do not know rxn details Erythromycin Unknown - Patient states they do not know rxn details and Other - please document in the comment field Penicillins Nausea and Unknown - Patient states they do not know rxn details [5] Social History Tobacco Use Smoking status: Every Day Current packs/day: 0.25 Average packs/day: 0.3 packs/day for 14.9 years (3.7 ttl pk-yrs) Types: Cigarettes Start date: 01/30/2016 Smokeless tobacco: Never Substance Use Topics Alcohol use: Never Drug use: Never [6] Family History Problem Relation Name Age of Onset Bursitis Father Other cancer Father Depression Mother Jenny Hernández Anxiety disorder Mother Jenny Hernández Migraines Mother's Sister Heidi Gandhi documented in this encounter Plan of Treatment Upcoming Encounters Date Type Department Care Team (Late st Contact Info) Description 09/25/2025 10:30 AM EST Office Visit [place] [facility] [address], [address] [place] [address] Leonila Doe MD [address] [facility] [address] [place] [address] documented as of this encounter Results * (ABNORMAL) CBC and Differential (03/20/2025 11:21 AM EDT) WBC Count 11.40(H) 3.70 - 10.30 10*3/uL LAB HEMATOLOGY METHOD 03/20/2025 1:06 PM EDT [facility] RBC Count 4.56 3.90 - 5.20 10*6/uL LAB HEMATOLOGY METHOD 03/20/2025 1:06 PM EDT [facility] HGB 14.1 11.2 - 15.7 g/dL LAB HEMATOLOGY METHOD 03/20/2025 1:06 PM EDT [facility] HCT 42.6 34.0 - 45.0 % LAB HEMATOLOGY METHOD 03/20/2025 1:06 PM EDT [facility] Platelet Count 356 155 - 369 10*3/uL LAB HEMATOLOGY METHOD 03/20/2025 1:06 PM EDT [facility] MCV 93 79 - 98 fL LAB HEMATOLOGY METHOD 03/20/2025 1:06 PM EDT [facility] MCH 30.9 26.0 - 32.0 pg LAB HEMATOLOGY METHOD 03/20/2025 1:06 PM EDT [facility] MCHC 33.1 30.7 - 35.5 g/dL LAB HEMATOLOGY METHOD 03/20/2025 1:06 PM EDT [facility] RDW 13.3 11.5 - 14.5 % LAB HEMATOLOGY METHOD 03/20/2025 1:06 PM EDT [facility] MPV 10.0 8.8 - 12.5 fL LAB HEMATOLOGY METHOD 03/20/2025 1:06 PM EDT [facility] nRBC 0.0 <=0.0 per 100 WBCs LAB HEMATOLOGY METHOD 03/20/2025 1:06 PM EDT [facility] Differential Type Automated LAB HEMATOLOGY METHOD 03/20/2025 1:06 PM EDT [facility] Neutrophils % 77 % LAB HEMATOLOGY METHOD 03/20/2025 1:06 PM EDT [facility] Lymphocytes % 11 % LAB HEMATOLOGY METHOD 03/20/2025 1:06 PM EDT [facility] Monocytes % 9 % LAB HEMATOLOGY METHOD 03/20/2025 1:06 PM EDT [facility] Eosinophils % 1 % LAB HEMATOLOGY METHOD 03/20/2025 1:06 PM EDT [facility] Basophils % 1 % LAB HEMATOLOGY METHOD 03/20/2025 1:06 PM EDT [facility] Immature Granulocytes % 1 % LAB HEMATOLOGY METHOD 03/20/2025 1:06 PM EDT [facility] Neutrophils Absolute 8.79(H) 1.60 - 6.10 10*3/uL LAB HEMATOLOGY METHOD 03/20/2025 1:06 PM EDT [facility] Lymphocytes Absolute 1.29 1.20 - 3.90 10*3/uL LAB HEMATOLOGY METHOD 03/20/2025 1:06 PM EDT [facility] Monocytes Absolute 1.07(H) 0.30 - 0.90 10*3/uL LAB HEMATOLOGY METHOD 03/20/2025 1:06 PM EDT [facility] Eosinophils Absolute 0.07 0.00 - 0.50 10*3/uL LAB HEMATOLOGY METHOD 03/20/2025 1:06 PM EDT [facility] Basophils Absolute 0.12(H) 0.00 - 0.10 10*3/uL LAB HEMATOLOGY METHOD 03/20/2025 1:06 PM EDT [facility] Immature Granulocytes Absolute 0.06 0.00 - 0.06 10*3/uL LAB HEMATOLOGY METHOD 03/20/2025 1:06 PM EDT [facility] Blood Venous blood specimen / Unknown Venipuncture / Unknown 03/20/2025 11:21 AM EDT 03/20/2025 11:21 AM EDT Narrative [facility] - 03/20/2025 1:06 PM EDT Therapeutic decision making should be based on absolute values, rather than percentages. us Leonila Doe MD LAB BLOOD ORDERABLES F inal Result [facility] [address] [place] [address] * (ABNORMAL) Comprehensive Metabolic Panel, Plasma (03/20/2025 11:21 AM EDT) Glucose, Plasma 88 74 - 99 mg/dL 03/20/2025 1:19 PM EDT [facility] BUN, Plasma 11 8 - 23 mg/dL 03/20/2025 1:19 PM EDT [facility] Creatinine, Plasma 0.57(L) 0.60 - 1.10 mg/dL 03/20/2025 1:19 PM EDT [facility] BUN/Creatinine Ratio 03/20/2025 1:19 PM EDT [facility] Sodium, Plasma 142 136 - 145 mmol/L 03/20/2025 1:19 PM EDT [facility] Potassium, Plasma 4.0 3.6 - 4.9 mmol/L 03/20/2025 1:19 PM EDT [facility] Chloride, Plasma 104 97 - 107 mmol/L 03/20/2025 1:19 PM EDT [facility] CO2, Plasma 28 22 - 29 mmol/L 03/20/2025 1:19 PM EDT [facility] Anion Gap 10 6 - 16 mmol/L 03/20/2025 1:19 PM EDT [facility] Total Calcium, Plasma 9.2 8.9 - 10.2 mg/dL 03/20/2025 1:19 PM EDT [facility] Total Protein 6.4 6.3 - 7.9 g/dL 03/20/2025 1:19 PM EDT [facility] Albumin, Plasma 4.1 3.5 - 5.2 g/dL 03/20/2025 1:19 PM EDT [facility] AST, Plasma 26 10 - 35 U/L 03/20/2025 1:19 PM EDT [facility] ALT, Plasma 30 10 - 35 U/L 03/20/2025 1:19 PM EDT [facility] Alkaline Phosphatase, Plasma 108 46 - 142 U/L 03/20/2025 1:19 PM EDT [facility] Total Bilirubin, Plasma 0.4 0.2 - 1.1 mg/dL 03/20/2025 1:19 PM EDT [facility] eGFRcr 102.3 mL/min/1.7 3m*2 03/20/2025 1:19 PM EDT [facility] Comment:Reported eGFRcr in m L/min/1.73m2 is based the CKD-EPI 2020 equation that does not use a race coefficient. Blood Venous blood specimen / Unknown Venipuncture / Unknown 03/20/2025 11:21 AM EDT 03/20/2025 11:21 AM EDT us Leonila Doe MD LAB BLOOD ORDERABLES F inal Result [facility] [address] [place] [address] documented in this encounter Visit Diagnoses Diagnosis MS (multiple sclerosis) (CMS/[facility])- Primary Multiple sclerosis documented in this encounter Additional Health Concerns Assessment Noted Time PHQ-9 Depression Total Score: 5 08/30/19 25 11:31 AM EST A fall risk assessment has been complete d for the patient 03/20/2025 10:08 AM EDT A Body Mass Index follow-up plan has been documented for the patient 03/20/2025 11:01 AM EDT documented as of this encounter Care Teams Italian Tutor Relationship Specialty Start Date End Date Mickey Maldonado MD PCP - General Family Medicine 06/24/23 Leonila Doe MD [address] [address] Consulting Physician Neurology 06/24/23 documented as of this encounter
--- OUTSIDE RECORDS SUMMARY | 2025-04-25 11:33 | XMS_ITS | Encounter Summary ---
Author Organization [facility] Address [address] [place] [address] Care Team Providers Care Academic Administrator Name Role Phone Mickey Maldonado MD Primary Care Provider Leonila Roy MD Unavailable + [phone] Reason for Visit * Reason Onset Date Comments Briumvi Therapy 09/20/2024 Encounter Details Date Type Department Care Team (Late st Contact Info) Description 09/20/2024 Telephone [facility] [address] [place] [id number] Nolvia Santoro, [facility] [address] [place] [address] Briumvi Therapy Social History Tobacco Use Types Packs/Day Years [...] encounter Miscellaneous Notes * Telephone Encounter - Jaime Shore, PharmD - 10/19/2024 3:38 PM EST Infusion team requesting order for next dose of Briumvi due now. Last infusion on 03/30/24. Patient last seen by Dr. Doe on 08/30/24 with plan, When she is cleared by her Hem-Onc doc regarding the mass on her back, and if it is benign, she will resume the DMT. . Pt saw oncology on 10/15/24 where report Today we discussed her most updated imaging findings on herMRI which demonstrated no evidence mass present. She is not symptomatic and has no constitutional systemic symptoms to suggest malignancy. From our perspective, there are no contraindications to proceeding with infusions for multiple sclerosis and we will defer to Neurology regarding resuming her treatments. Labs last drawn 10/18/24 (located in media tab). ALC and LFTs wnl. ALC (1700), AST (34), ALT (28), and Alk phos (96). Entering therapy plan and sending to for review and signature if appropriate. * Addendum Note - Jaime Shore PharmD - 10/17/2024 9:35 AM ESTAddended by: JAIME SHORE on: 10/17/2024 09:35 AM Modules accepted: Orders documented in this encounter Plan of Treatment Upcoming Encounters Date Type Department Care Team (Late st Contact Info) Description 09/25/2025 10:30 AM EST Office Visit [place] [facility] [address], [address] [place] [address] Leonila Doe MD [address] [facility] [address] [place] [address] documented as of this encounter Visit Diagnoses Diagnosis MS (multiple sclerosis) (CMS/HCC)- Primary Multiple sclerosis documented in this encounter Additional Health Concerns Assessment Noted Time PHQ-9 Depression Total Score: 5 08/30/19 11:31 AM EST A fall risk assessment has been complete d for the patient 08/30/2024 11:31 AM EST A Body Mass Index follow-up plan has been documented for the patient 09/18/2024 1:18 PM EST documented as of this encounter Care Teams Academic Administrator Relationship Specialty Start Date End Date Mickey Maldonado MD PCP - General Family Medicine 06/24/23 Leonila Doe MD [address] [facility] [address] [place] [address] Consulting Physician Neurology 06/24/23 documented as of this encounter
--- OUTSIDE RECORDS SUMMARY | 2025-04-25 11:33 | XMS_ITS | Encounter Summary ---
Author Organization Healthcare Address [address] [place] [address] Care Team Providers Care Surgical Dental Assistant Name Role Phone Mickey Maldonado MD Primary Care Provider Leonila Roy MD Unavailable + [phone] Encounter Details Date Type Department Care Team (Late Contact Info) Description 07/24/2024 Orders Only External Location [address] [place] [address] Provider, External Social History Tobacco Use Types [...] as of this encounter Plan of Treatment Upcoming Encounters Date Type Department Care Team (Late Contact Info) Description 09/25/2025 10:30 AM EST Office Visit [place] [facility] [address], [address] [place] [address] Leonila Doe MD [address] [place] [address] documented as of this encounter Procedures Procedure Name Priority Date/Time Associated Diagnosis Comments CT OUTSIDE IMAGES 07/24/2024 5:15 PM EST documented in this encounter Results * CT OUTSIDE IMAGES (07/24/2024 5:15 PM EST) Anatomical Region Laterality Modality Computed Tomogra phy 07/24/2024 5:15 PM EST External Provider IMG CT PROCEDURES Final Result documented in this encounter Visit Diagnoses Not on filedocumented in this encounter Additional Health Concerns Assessment Noted Time A fall risk assessment has been complete d for the patient 02/15/2024 9:07 AM EDT A Body Mass Index follow-up plan has been documented for the patient 02/15/2024 11:44 AM EDT documented as of this encounter Care Teams Surgical Dental Assistant Relationship Specialty Start Date End Date Mickey Maldonado MD PCP - General Family Medicine 06/24/23 Leonila Doe MD [address] [facility] [address] [place] [address] Consulting Physician Neurology 06/24/23 documented as of this encounter
--- OUTSIDE RECORDS SUMMARY | 2025-04-25 11:33 | XMS_ITS | Encounter Summary ---
Author Organization [facility] Address [address] [place] [address] Care Team Providers Care Supply Chain Logistics Manager Name Role Phone Mickey Maldonado MD Primary Care Provider Leonila Roy MD Unavailable + [phone] Encounter Details Date Type Department Care Team (Late st Contact Info) Description 03/22/2025 Telephone [place] [facility] [address] [place] [address] Leonila Doe MD [address] [place] [address] Social History Tobacco Use Types Packs/Day Years Used Date Smoking Tobacco: Every Day Cigarettes 0.3 15 Started: 01/30/2016 Smokeless Tobacco: Never Alcohol [...] optimal time of day to reach caller: [phone] Note: Please do not reply to this message. Follow-up communication and further actions as a result of this message need to be communicated with the patient directly, if the patient is not active onMyChart. If the patient is active on MyChart, they will receive notification of the communication/outcome via MyChart. documented in this encounter Plan of Treatment Upcoming Encounters Date Type Department Care Team (Late st Contact Info) Description 09/25/2025 10:30 AM EST Office Visit [place] [facility] [address] [place] [address] Leonila Doe MD [address] [place] [address] documented as of this encounter Visit Diagnoses [...] documented as of this encounter Care Teams Supply Chain Logistics Manager Relationship Specialty Start Date End Date Mickey Maldonado MD PCP - General Family Medicine 06/24/23 Leonila Doe MD [address] [place] [address] Consulting Physician Neurology 06/24/23 documented as of this encounter
--- OUTSIDE RECORDS SUMMARY | 2025-04-25 11:33 | XMS_ITS | Clinical Summary ---
Author Organization [facility] Address [facility] [place] [address] Care Team Providers Care Manager Group Name Role Phone Unavailable Primary Care Provider [...] therelease of HIV test results or diagnoses. [id number] Social History Tobacco Use Types Packs/Day Years Used Date Smoking Tobacco: Never Assessed Comments Unknown Sex and Gender Information Value Date Recorded Sex Assigned at Not on file Legal Sex Female 9:26 AM EDT Gender Identity Not on file Sexual Orientation Not on file Plan of Treatment Not on file
--- OUTSIDE RECORDS SUMMARY | 2025-04-25 11:33 | XMS_ITS | Encounter Summary ---
Author Organization [facility] Address [address] [place] [address] Care Team Providers Care First Aid Director Name Role Phone Brodie Castro MD Primary Care Provider + [phone] Mickey Maldonado MD Primary Care Provider Alyssa vailable Leonila Doe MD Unavailable [phone] Reason for Referral * Consultation (Routine) - Closed Specialty Diagnoses / Procedures Referred By Contac t Referred To Contact Neurology Diagnoses Multiple sclerosis (CMS/HCC) Amnesia memory loss Pietro Inman APRN [address] [place] [address] Phone: tel: fax: Leonila Doe MD [address] [facility] [address] [place] [address] Phone: tel: fax: Referral ID Status Reason Start Date Expiration Date V isits Requested Visits Authorized [id number] Closed Specialty Services Required 03/09/2023 09/07/2024 1 1 Encounter Details Date Type Department Care Team (Late st Contact Info) Description 03/09/2023 Community [facility] [address] [place] [address] Pietro Inman APRN [address] [place] [address] Multiple sclerosis (CMS/HCC) (Primary Dx); [...] Visit [place] [facility] [address] [place] [address] Leonila Doe MD [address] [place] [address] Scheduled Referrals Name Type Priority Associated Diagnoses Order Schedule Ambulatory referral to Neurology Outpatient Referral Routine Multiple sclerosis (CMS/HCC) Amnesia memory loss Expected: 03/09/2023, Expires: 09/09/2024 documented as of this encounter Visit Diagnoses Diagnosis Multiple sclerosis (CMS/HCC)- Primary Multiple sclerosis Amnesia memory loss Memory loss documented in this encounter Care Teams First Aid Director Relationship Specialty Start Date End Date Brodie Castro MD [address] [place] [address] PCP - General 12/26/20 06/23/23 Mickey Maldonado MD [address] [place] [address] PCP - General Family Medicine 06/24/23 Leonila Doe MD [address] [place] [address] Consulting Physician Neurology 06/24/23 documented as of this encounter
--- OUTSIDE RECORDS SUMMARY | 2025-04-25 11:33 | XMS_ITS | Encounter Summary ---
Author Organization Healthcare Address [address] [place] [address] Care Team Providers Care Retail Interior Designer Name Role Phone Mickey Maldonado MD Primary Care Provider Leonila Roy MD Unavailable + [phone] Encounter Details Date Type Department Care Team [...] Visit [place] [facility] [address] [place] [address] Leonila Doe MD [address] [place] [address] documented as of this encounter [...] documented as of this encounter Care Teams Retail Interior Designer Relationship Specialty Start Date End Date Mickey Maldonado MD PCP - General Family Medicine 06/24/23 Leonila Doe MD [address] [facility] [address] [place] [address] Consulting Physician Neurology 06/24/23 documented as of this encounter
--- OUTSIDE RECORDS SUMMARY | 2025-04-25 11:33 | XMS_ITS | Clinical Summary ---
Author Organization [facility] Address [address] [place] [address] Care Team Providers Care Street Commissioner Name Role Phone Mickey Maldonado MD Primary Care Provider Leonila Roy MD Unavailable + [phone] Allergies Active Allergy Reactions Criticality Noted Date [...] 2 puffs 1 (one) time as needed. Active Rexulti 1 MG tablet tablet Active Active Problems Problem Noted Date Diagnosed Date Tobacco use disorder 08/27/2024 MS (multiple sclerosis) 08/18/2023 Encounters Date Type Department Care Team Description 04/22/2025 Orders Only [facility] [address] [place] [address] Negar Shin RN 03/22/2025 Telephone [facility] [address], [address] [place] [address] Leonila Doe MD 03/20/2025 10:00 AM EDT Office Visit [facility] [address], [address] [place] [address] Leonila Doe MD MS (multiple sclerosis) ([facility]) (Primary Dx) 03/20/2025 Travel 03/17/2025 Travel from Last 3 Months Immunizations Immunization Administration Dates Next Due Influenza, injectable, quadrivalent 05/17/2017,1 ,06/03/2015 Influenza, seasonal, injectable 07/03/2014 Pneumococcal Polysaccharide PPV23 04/01/2020 Family History Medical History Relation Name Comments Bursitis Father Other cancer Father Anxiety disorder Mother Jenny Green Depression Mother Jenny Green Migraines Mother's Sister Heidi Hiram Relation Name Status Comments Father Mother Jenny Green Alive Mother's Sister Heidi Hiram Alive Social History Tobacco Use Types Packs/Day [...] 03/20/2025 10:05 AM EDT Plan of Treatment Upcoming Encounters Date Type Department Care Team (Late st Contact Info) Description 09/25/2025 10:30 AM EST Office Visit [place] [facility] [address], [address] [place] [address] Leonila Doe MD [address] [place] [address] Health Maintenance Due Date Last Done Comments [facility]-HIV Screening 1961 [facility]-Hepatitis C Screening 1961 [facility]-Medicare Annual Wellness (AWV) 1961 [facility]-Infant/Child/Adol SDOH Screenings 1961 [facility]- SDOH Screenings 1979 [...] - Risk 60-74 years 1-dose series) 2021 [id number] Vaccine ( - season) 2025 07/19/2022, 04/28/2021, 03/29/2021 [facility]-Influenza Vaccine (#1) 04/15/202505/17, [...] CBC and Differential (03/20/2025 11:21 AM EDT) [facility] WBC Count 11.40(H) 3.70 - 10.30 10*3/uL LAB HEMATOLOGY METHOD 03/20/2025 1:06 PM EDT [facility] RBC Count 4.56 3.90 - 5.20 10*6/uL LAB HEMATOLOGY METHOD 03/20/2025 1:06 PM EDT [facility] HGB 14.1 11.2 - 15.7 g/dL LAB HEMATOLOGY METHOD 03/20/2025 1:06 PM EDT [facility] HCT 42.6 34.0 - 45.0 % LAB HEMATOLOGY METHOD 03/20/2025 1:06 PM EDT [facility] Platelet Count 356 155 - 369 10*3/uL LAB HEMATOLOGY METHOD 03/20/2025 1:06 PM EDT [facility] MCV 93 79 - 98 fL LAB HEMATOLOGY METHOD 03/20/2025 1:06 PM EDT [facility] MCH 30.9 26.0 - 32.0 pg LAB HEMATOLOGY METHOD 03/20/2025 1:06 PM EDT [facility] MCHC 33.1 30.7 - 35.5 g/dL LAB HEMATOLOGY METHOD 03/20/2025 1:06 PM EDT [facility] RDW 13.3 11.5 - 14.5 % LAB HEMATOLOGY METHOD 03/20/2025 1:06 PM EDT [facility] MPV 10.0 8.8 - 12.5 fL LAB HEMATOLOGY METHOD 03/20/2025 1:06 PM EDT [facility] nRBC 0.0 <=0.0 per 100 WBCs LAB HEMATOLOGY METHOD 03/20/2025 1:06 PM EDT [facility] Differential Type Automated LAB HEMATOLOGY METHOD 03/20/2025 1:06 PM EDT [facility] Neutrophils % 77 % LAB HEMATOLOGY METHOD 03/20/2025 1:06 PM EDT [facility] Lymphocytes % 11 % LAB HEMATOLOGY METHOD 03/20/2025 1:06 PM EDT [facility] Monocytes % 9 % LAB HEMATOLOGY METHOD 03/20/2025 1:06 PM EDT [facility] Eosinophils % 1 % LAB HEMATOLOGY METHOD 03/20/2025 1:06 PM EDT [facility] Basophils % 1 % LAB HEMATOLOGY METHOD 03/20/2025 1:06 PM EDT [facility] Immature Granulocytes % 1 % LAB HEMATOLOGY METHOD 03/20/2025 1:06 PM EDT [facility] Neutrophils Absolute 8.79(H) 1.60 - 6.10 10*3/uL LAB HEMATOLOGY METHOD 03/20/2025 1:06 PM EDT [facility] Lymphocytes Absolute 1.29 1.20 - 3.90 10*3/uL LAB HEMATOLOGY METHOD 03/20/2025 1:06 PM EDT [facility] Monocytes Absolute 1.07(H) 0.30 - 0.90 10*3/uL LAB HEMATOLOGY METHOD 03/20/2025 1:06 PM EDT [facility] Eosinophils Absolute 0.07 0.00 - 0.50 10*3/uL LAB HEMATOLOGY METHOD 03/20/2025 1:06 PM EDT [facility] Basophils Absolute 0.12(H) 0.00 - 0.10 10*3/uL LAB HEMATOLOGY METHOD 03/20/2025 1:06 PM EDT [facility] Immature Granulocytes Absolute 0.06 0.00 - 0.06 10*3/uL LAB HEMATOLOGY METHOD 03/20/2025 1:06 PM EDT [facility] Blood Venous blood specimen / Unknown Venipuncture / Unknown 03/20/2025 11:21 AM EDT 03/20/2025 11:21 AM EDT Narrative [facility] - 03/20/2025 1:06 PM EDT Therapeutic decision making should be based on absolute values, rather than percentages. us Leonila Doe MD LAB BLOOD ORDERABLES F inal Result [facility] [address] [place] [address] * (ABNORMAL) Comprehensive Metabolic Panel, Plasma (03/20/2025 11:21 AM EDT) Glucose, Plasma 88 74 - 99 mg/dL 03/20/2025 1:19 PM EDT [facility] BUN, Plasma 11 8 - 23 mg/dL 03/20/2025 1:19 PM EDT [facility] Creatinine, Plasma 0.57(L) 0.60 - 1.10 mg/dL 03/20/2025 1:19 PM EDT [facility] BUN/Creatinine Ratio 03/20/2025 1:19 PM EDT [facility] Sodium, Plasma 142 136 - 145 mmol/L 03/20/2025 1:19 PM EDT [facility] Potassium, Plasma 4.0 3.6 - 4.9 mmol/L 03/20/2025 1:19 PM EDT [facility] Chloride, Plasma 104 97 - 107 mmol/L 03/20/2025 1:19 PM EDT [facility] CO2, Plasma 28 22 - 29 mmol/L 03/20/2025 1:19 PM EDT [facility] Anion Gap 10 6 - 16 mmol/L 03/20/2025 1:19 PM EDT [facility] Total Calcium, Plasma 9.2 8.9 - 10.2 mg/dL 03/20/2025 1:19 PM EDT [facility] Total Protein 6.4 6.3 - 7.9 g/dL 03/20/2025 1:19 PM EDT [facility] Albumin, Plasma 4.1 3.5 - 5.2 g/dL 03/20/2025 1:19 PM EDT [facility] AST, Plasma 26 10 - 35 U/L 03/20/2025 1:19 PM EDT [facility] ALT, Plasma 30 10 - 35 U/L 03/20/2025 1:19 PM EDT [facility] Alkaline Phosphatase, Plasma 108 46 - 142 U/L 03/20/2025 1:19 PM EDT [facility] Total Bilirubin, Plasma 0.4 0.2 - 1.1 mg/dL 03/20/2025 1:19 PM EDT [facility] eGFRcr 102.3 mL/min/1.7 3m*2 03/20/2025 1:19 PM EDT [facility] Comment:Reported eGFRcr in m L/min/1.73m2 is based the CKD-EPI 2020 equation that does not use a race coefficient. Blood Venous blood specimen / Unknown Venipuncture / Unknown 03/20/2025 11:21 AM EDT 03/20/2025 11:21 AM EDT Leonila Doe MD LAB BLOOD ORDERABLES F inal Result [facility] [address] [place] [address] from Last 3 Months Insurance [facility] MEDICARE Care Teams Street Commissioner Relationship Specialty Start Date End Date Mickey Maldonado MD PCP - General Family Medicine 06/24/23 Leonila Doe MD [address] [place] [phone] Consulting Physician Neurology 06/24/23
--- OUTSIDE RECORDS SUMMARY | 2025-04-25 11:33 | XMS_ITS | Encounter Summary ---
Author Organization Healthcare Address [address] [place] [address] Care Team Providers Care Python Engineer Name Role Phone Mickey Maldonado MD Primary Care Provider Leonila Roy MD Unavailable + [phone] Encounter Details Date Type Department Care Team [...] Visit [place] [facility] [address], [address] [place] [address] Leonila Doe MD [address] [place] [address] documented as of this encounter [...] documented as of this encounter Care Teams Python Engineer Relationship Specialty Start Date End Date Mickey Maldonado MD PCP - General Family Medicine 06/24/23 Leonila Doe MD [address] [facility] [address] [place] [address] Consulting Physician Neurology 06/24/23 documented as of this encounter
--- OUTSIDE RECORDS SUMMARY | 2025-04-25 11:33 | XMS_ITS | Encounter Summary ---
Author Organization Healthcare Address [address] [place] [address] Care Team Providers Care Assembly Supervisor Name Role Phone Mickey Maldonado MD Primary Care Provider Leonila Roy MD Unavailable + [phone] Encounter Details Date Type Department Care Team (Late Contact Info) Description 04/22/2025 Orders Only [facility] [address] [place] [address] Negar Shin, RN [facility] Social History Tobacco Use Types Packs/Day Years [...] Visit [place] [facility] [address] [place] [address] Leonila Doe MD [address] [place] [address] documented as of this encounter [...] documented as of this encounter Care Teams Assembly Supervisor Relationship Specialty Start Date End Date Mickey Maldonado MD PCP - General Family Medicine 06/24/23 Leonila Doe MD [address] [facility] [address] [place] [address] Consulting Physician Neurology 06/24/23 documented as of this encounter
== END 2025-04-25 23:59 | disposition home or self-care (01) ==
LOC: LAB 11:30
PROVIDERS: PCP Family Medicine
DX: R63.4 Abnormal weight loss (principal); R53.83 Other fatigue
CPT/HCPCS: 36415

== ENCOUNTER 2025-05-03 08:50 | Outpatient (CLI) | payer MEDICARE, SELFPAY ==
--- OUTSIDE RECORDS SUMMARY | 2025-03-20 10:00 | XMS_ITS | Encounter Summary ---
Author Organization Healthcare Address [address] [place] [address] Care Team Providers Care Tar Heater Name Role Phone Mickey Maldonado MD Primary Care Provider Leonila Roy MD Unavailable + [phone] Encounter Details Date Type Department Care Team (Late st Contact Info) Description 03/20/2025 10:00 AM EDT Office Visit [place] [facility] [address], [address] [place] [address] Leonila Doe MD [address] [place] [address] MS (multiple sclerosis) (CMS/HCC) (Primary Dx) Social History Tobacco Use Types Packs/Day Years Used Date Smoking Tobacco: Every Day Cigarettes 0.3 15.1 Started: 01/30/2016 Smokeless Tobacco: Never Tobacco Cessation:Ready [...] epilepticus Epilepsy Migraine 1981 MS (multiple sclerosis) ([facility]) 2013 Other amnesia Memory loss [...] BREAST LUMPECTOMY N/A Breast Surgery Lumpectomy from [facility] TONSILLECTOMY N/A Tonsillectomy from [facility] [3] Outpatient Encounter Medications as of 03/20/2025 [...] Visit [place] [facility] [address], [address] [place] [address] Leonila Doe MD [address] [facility] [address] [place] [address] documented as of this encounter Results * (ABNORMAL) CBC and Differential (03/20/2025 11:21 AM EDT) WBC Count 11.40(H) 3.70 - 10.30 10*3/uL LAB HEMATOLOGY METHOD 03/20/2025 1:06 PM EDT [facility] RBC Count 4.56 3.90 - 5.20 10*6/uL LAB HEMATOLOGY METHOD 03/20/2025 1:06 PM EDT [facility] HGB 14.1 11.2 - 15.7 g/dL LAB HEMATOLOGY METHOD 03/20/2025 1:06 PM EDT [facility] HCT 42.6 34.0 - 45.0 % LAB HEMATOLOGY METHOD 03/20/2025 1:06 PM EDT [facility] Platelet Count 356 155 - 369 10*3/uL LAB HEMATOLOGY METHOD 03/20/2025 1:06 PM EDT [facility] MCV 93 79 - 98 fL LAB HEMATOLOGY METHOD 03/20/2025 1:06 PM EDT [facility] MCH 30.9 26.0 - 32.0 pg LAB HEMATOLOGY METHOD 03/20/2025 1:06 PM EDT [facility] MCHC 33.1 30.7 - 35.5 g/dL LAB HEMATOLOGY METHOD 03/20/2025 1:06 PM EDT [facility] RDW 13.3 11.5 - 14.5 % LAB HEMATOLOGY METHOD 03/20/2025 1:06 PM EDT [facility] MPV 10.0 8.8 - 12.5 fL LAB HEMATOLOGY METHOD 03/20/2025 1:06 PM EDT [facility] nRBC 0.0 <=0.0 per 100 WBCs LAB HEMATOLOGY METHOD 03/20/2025 1:06 PM EDT [facility] Differential Type Automated LAB HEMATOLOGY METHOD 03/20/2025 1:06 PM EDT [facility] Neutrophils % 77 % LAB HEMATOLOGY METHOD 03/20/2025 1:06 PM EDT [facility] Lymphocytes % 11 % LAB HEMATOLOGY METHOD 03/20/2025 1:06 PM EDT [facility] Monocytes % 9 % LAB HEMATOLOGY METHOD 03/20/2025 1:06 PM EDT [facility] Eosinophils % 1 % LAB HEMATOLOGY METHOD 03/20/2025 1:06 PM EDT [facility] Basophils % 1 % LAB HEMATOLOGY METHOD 03/20/2025 1:06 PM EDT [facility] Immature Granulocytes % 1 % LAB HEMATOLOGY METHOD 03/20/2025 1:06 PM EDT [facility] Neutrophils Absolute 8.79(H) 1.60 - 6.10 10*3/uL LAB HEMATOLOGY METHOD 03/20/2025 1:06 PM EDT [facility] Lymphocytes Absolute 1.29 1.20 - 3.90 10*3/uL LAB HEMATOLOGY METHOD 03/20/2025 1:06 PM EDT [facility] Monocytes Absolute 1.07(H) 0.30 - 0.90 10*3/uL LAB HEMATOLOGY METHOD 03/20/2025 1:06 PM EDT [facility] Eosinophils Absolute 0.07 0.00 - 0.50 10*3/uL LAB HEMATOLOGY METHOD 03/20/2025 1:06 PM EDT [facility] Basophils Absolute 0.12(H) 0.00 - 0.10 10*3/uL LAB HEMATOLOGY METHOD 03/20/2025 1:06 PM EDT [facility] Immature Granulocytes Absolute 0.06 0.00 - 0.06 10*3/uL LAB HEMATOLOGY METHOD 03/20/2025 1:06 PM EDT [facility] Blood Venous blood specimen / Unknown Venipuncture / Unknown 03/20/2025 11:21 AM EDT 03/20/2025 11:21 AM EDT Narrative [facility] - 03/20/2025 1:06 PM EDT Therapeutic decision making should be based on absolute values, rather than percentages. us Leonila Doe MD LAB BLOOD ORDERABLES F inal Result [facility] [address] [place] [address] * (ABNORMAL) Comprehensive Metabolic Panel, Plasma (03/20/2025 11:21 AM EDT) Glucose, Plasma 88 74 - 99 mg/dL 03/20/2025 1:19 PM EDT [facility] BUN, Plasma 11 8 - 23 mg/dL 03/20/2025 1:19 PM EDT [facility] Creatinine, Plasma 0.57(L) 0.60 - 1.10 mg/dL 03/20/2025 1:19 PM EDT [facility] BUN/Creatinine Ratio 03/20/2025 1:19 PM EDT [facility] Sodium, Plasma 142 136 - 145 mmol/L 03/20/2025 1:19 PM EDT [facility] Potassium, Plasma 4.0 3.6 - 4.9 mmol/L 03/20/2025 1:19 PM EDT [facility] Chloride, Plasma 104 97 - 107 mmol/L 03/20/2025 1:19 PM EDT [facility] CO2, Plasma 28 22 - 29 mmol/L 03/20/2025 1:19 PM EDT [facility] Anion Gap 10 6 - 16 mmol/L 03/20/2025 1:19 PM EDT [facility] Total Calcium, Plasma 9.2 8.9 - 10.2 mg/dL 03/20/2025 1:19 PM EDT [facility] Total Protein 6.4 6.3 - 7.9 g/dL 03/20/2025 1:19 PM EDT [facility] Albumin, Plasma 4.1 3.5 - 5.2 g/dL 03/20/2025 1:19 PM EDT [facility] AST, Plasma 26 10 - 35 U/L 03/20/2025 1:19 PM EDT [facility] ALT, Plasma 30 10 - 35 U/L 03/20/2025 1:19 PM EDT [facility] Alkaline Phosphatase, Plasma 108 46 - 142 U/L 03/20/2025 1:19 PM EDT [facility] Total Bilirubin, Plasma 0.4 0.2 - 1.1 mg/dL 03/20/2025 1:19 PM EDT [facility] eGFRcr 102.3 mL/min/1.7 3m*2 03/20/2025 1:19 PM EDT [facility] Comment:Reported eGFRcr in m L/min/1.73m2 is based the CKD-EPI 2020 equation that does not use a race coefficient. Blood Venous blood specimen / Unknown Venipuncture / Unknown 03/20/2025 11:21 AM EDT 03/20/2025 11:21 AM EDT us Leonila Doe MD LAB BLOOD ORDERABLES F inal Result [facility] [address] [place] [address] documented in this encounter Visit Diagnoses Diagnosis MS (multiple sclerosis) ([facility])- Primary Multiple sclerosis documented in this encounter Additional Health Concerns Assessment Noted Time PHQ-9 Depression Total Score: 5 08/30/19 25 11:31 AM EST A fall risk assessment has been complete d for the patient 03/20/2025 10:08 AM EDT A Body Mass Index follow-up plan has been documented for the patient 03/20/2025 11:01 AM EDT documented as of this encounter Care Teams Tar Heater Relationship Specialty Start Date End Date Mickey Maldonado MD PCP - General Family Medicine 06/24/23 Leonila Doe MD [address] [phone] Consulting Physician Neurology 06/24/23 documented as of this encounter
--- OUTSIDE RECORDS SUMMARY | 2025-05-03 08:54 | XMS_ITS | Encounter Summary ---
Author Organization Healthcare Address [address] [place] [address] Care Team Providers Care Slide Machine Tender Name Role Phone Mickey Maldonado MD Primary Care Provider Leonila Roy MD Unavailable + [phone] Encounter Details Date Type Department Care Team (Late Contact Info) Description 07/24/2024 Orders Only External Location [address] [place] [address] Provider, External Social History Tobacco Use Types [...] Visit [place] [facility] [address], [address] [place] [address] Leonila Doe MD [address] [place] [address] documented as of this encounter Procedures Procedure [...] documented as of this encounter Care Teams Slide Machine Tender Relationship Specialty Start Date End Date Mickey Maldonado MD PCP - General Family Medicine 06/24/23 Leonila Doe MD [address] [facility] [address] [place] [address] Consulting Physician Neurology 06/24/23 documented as of this encounter
--- OUTSIDE RECORDS SUMMARY | 2025-05-03 08:54 | XMS_ITS | Encounter Summary ---
Author Organization [facility] Address [address] [place] [address] Care Team Providers Care Bankman Name Role Phone Mickey Maldonado MD Primary Care Provider Leonila Roy MD Unavailable + [phone] Encounter Details Date Type Department Care Team (Late Contact Info) Description 04/22/2025 Orders Only [facility] [address] [place] [address] Negar Shin, RN [facility] Social History Tobacco Use Types Packs/Day Years Used Date Smoking Tobacco: Every Day Cigarettes 0.3 15.1 Started: 01/30/2016 Smokeless Tobacco: Never Alcohol Use [...] Visit [place] [facility] [address], [address] [place] [address] Leonila Doe MD [address] [place] [address] documented as of this encounter [...] documented as of this encounter Care Teams Bankman Relationship Specialty Start Date End Date Mickey Maldonado MD PCP - General Family Medicine 06/24/23 Leonila Doe MD [address] [place] [address] Consulting Physician Neurology 06/24/23 documented as of this encounter
--- OUTSIDE RECORDS SUMMARY | 2025-05-03 08:54 | XMS_ITS | Encounter Summary ---
Author Organization [facility] Address [address] [place] [address] Care Team Providers Care Crap Game Box Person Name Role Phone Mickey Maldonado MD Primary Care Provider Leonila Roy MD Unavailable + [phone] Reason for Visit * Reason Onset Date Comments [facility] 09/20/2024 Encounter Details Date Type Department Care Team (Late st Contact Info) Description 09/20/2024 Telephone [facility] [address] [place] [phone] Nolvia Santoro, [facility] [address] [place] [address] [facility] Social History Tobacco Use Types [...] Visit [place] [facility] [address], [address] [place] [address] Leonila Doe MD [address] [facility] [address] [place] [address] documented as of this encounter Visit Diagnoses [...] documented as of this encounter Care Teams Crap Game Box Person Relationship Specialty Start Date End Date Mickey Maldonado MD PCP - General Family Medicine 06/24/23 Leonila Doe MD [address] [facility] [address] [place] [address] Consulting Physician Neurology 06/24/23 documented as of this encounter
--- OUTSIDE RECORDS SUMMARY | 2025-05-03 08:54 | XMS_ITS | Encounter Summary ---
Author Organization Healthcare Address [address] [place] [address] Care Team Providers Care Engineer Technical Staff Name Role Phone Mickey Maldonado MD Primary Care Provider Leonila Roy MD Unavailable + [phone] Encounter Details Date Type Department Care Team [...] Visit [place] [facility] [address], [address] [place] [address] Leonila Doe MD [address] [place] [address] documented as of this encounter [...] documented as of this encounter Care Teams Engineer Technical Staff Relationship Specialty Start Date End Date Mickey Maldonado MD PCP - General Family Medicine 06/24/23 Leonila Doe MD [address] [facility] [address] [place] [address] Consulting Physician Neurology 06/24/23 documented as of this encounter
--- OUTSIDE RECORDS SUMMARY | 2025-05-03 08:54 | XMS_ITS | Clinical Summary ---
Author Organization [facility] Address [address] [place] [address] Care Team Providers Care Public Policy Professor Name Role Phone Mickey Maldonado MD Primary Care Provider Leonila Roy MD Unavailable + [phone] Allergies Active Allergy Reactions Criticality Noted Date [...] Department Care Team Description 04/22/2025 Orders Only [facility] [address] [place] [address] Negar Shin RN 03/22/2025 Telephone [facility] [address], 1st [place] [address] Leonila Doe MD 03/20/2025 10:00 AM EDT Office Visit [facility] [address], [address]st [place] [address] Leonila Doe MD MS (multiple sclerosis) ([facility]) (Primary Dx) 03/20/2025 Travel 03/17/2025 Travel from [...] Visit [place] [facility] [address], [address] [place] [address] Leonila Doe MD [address] [place] [address] Health Maintenance Due Date Last Done Comments [...] - Risk 60-74 years 1-dose series) 2021 [id number] Vaccine (4 - season) 2025 07/19/2022, 04/28/2021, 03/29/2021 [facility]-Influenza [...] CBC and Differential (03/20/2025 11:21 AM EDT) [facility] WBC Count 11.40(H) 3.70 - 10.30 10*3/uL LAB HEMATOLOGY METHOD 03/20/2025 1:06 PM EDT [facility] RBC Count 4.56 3.90 - 5.20 10*6/uL LAB HEMATOLOGY METHOD 03/20/2025 1:06 PM EDT [facility] HGB 14.1 11.2 - 15.7 g/dL LAB HEMATOLOGY METHOD 03/20/2025 1:06 PM EDT [facility] HCT 42.6 34.0 - 45.0 % LAB HEMATOLOGY METHOD 03/20/2025 1:06 PM EDT [facility] Platelet Count 356 155 - 369 10*3/uL LAB HEMATOLOGY METHOD 03/20/2025 1:06 PM EDT [facility] MCV 93 79 - 98 fL LAB HEMATOLOGY METHOD 03/20/2025 1:06 PM EDT [facility] MCH 30.9 26.0 - 32.0 pg LAB HEMATOLOGY METHOD 03/20/2025 1:06 PM EDT [facility] MCHC 33.1 30.7 - 35.5 g/dL LAB HEMATOLOGY METHOD 03/20/2025 1:06 PM EDT [facility] RDW 13.3 11.5 - 14.5 % LAB HEMATOLOGY METHOD 03/20/2025 1:06 PM EDT [facility] MPV 10.0 8.8 - 12.5 fL LAB HEMATOLOGY METHOD 03/20/2025 1:06 PM EDT [facility] nRBC 0.0 <=0.0 per 100 WBCs LAB HEMATOLOGY METHOD 03/20/2025 1:06 PM EDT [facility] Differential Type Automated LAB HEMATOLOGY METHOD 03/20/2025 1:06 PM EDT [facility] Neutrophils % 77 % LAB HEMATOLOGY METHOD 03/20/2025 1:06 PM EDT [facility] Lymphocytes % 11 % LAB HEMATOLOGY METHOD 03/20/2025 1:06 PM EDT [facility] Monocytes % 9 % LAB HEMATOLOGY METHOD 03/20/2025 1:06 PM EDT [facility] Eosinophils % 1 % LAB HEMATOLOGY METHOD 03/20/2025 1:06 PM EDT [facility] Basophils % 1 % LAB HEMATOLOGY METHOD 03/20/2025 1:06 PM EDT [facility] Immature Granulocytes % 1 % LAB HEMATOLOGY METHOD 03/20/2025 1:06 PM EDT [facility] Neutrophils Absolute 8.79(H) 1.60 - 6.10 10*3/uL LAB HEMATOLOGY METHOD 03/20/2025 1:06 PM EDT [facility] Lymphocytes Absolute 1.29 1.20 - 3.90 10*3/uL LAB HEMATOLOGY METHOD 03/20/2025 1:06 PM EDT [facility] Monocytes Absolute 1.07(H) 0.30 - 0.90 10*3/uL LAB HEMATOLOGY METHOD 03/20/2025 1:06 PM EDT [facility] Eosinophils Absolute 0.07 0.00 - 0.50 10*3/uL LAB HEMATOLOGY METHOD 03/20/2025 1:06 PM EDT [facility] Basophils Absolute 0.12(H) 0.00 - 0.10 10*3/uL LAB HEMATOLOGY METHOD 03/20/2025 1:06 PM EDT [facility] Immature Granulocytes Absolute 0.06 0.00 - 0.06 10*3/uL LAB HEMATOLOGY METHOD 03/20/2025 1:06 PM EDT [facility] Blood Venous blood specimen / Unknown Venipuncture / Unknown 03/20/2025 11:21 AM EDT 03/20/2025 11:21 AM EDT Narrative [facility] - 03/20/2025 1:06 PM EDT Therapeutic decision making should be based on absolute values, rather than percentages. us Leonila Doe MD LAB BLOOD ORDERABLES F inal Result [facility] [address] [place] [address] * (ABNORMAL) Comprehensive Metabolic Panel, Plasma (03/20/2025 11:21 AM EDT) [facility] Glucose, Plasma 88 74 - 99 mg/dL 03/20/2025 1:19 PM EDT [facility] BUN, Plasma 11 8 - 23 mg/dL 03/20/2025 1:19 PM EDT [facility] Creatinine, Plasma 0.57(L) 0.60 - 1.10 mg/dL 03/20/2025 1:19 PM EDT [facility] BUN/Creatinine Ratio 03/20/2025 1:19 PM EDT [facility] Sodium, Plasma 142 136 - 145 mmol/L 03/20/2025 1:19 PM EDT [facility] Potassium, Plasma 4.0 3.6 - 4.9 mmol/L 03/20/2025 1:19 PM EDT [facility] Chloride, Plasma 104 97 - 107 mmol/L 03/20/2025 1:19 PM EDT [facility] CO2, Plasma 28 22 - 29 mmol/L 03/20/2025 1:19 PM EDT [facility] Anion Gap 10 6 - 16 mmol/L 03/20/2025 1:19 PM EDT [facility] Total Calcium, Plasma 9.2 8.9 - 10.2 mg/dL 03/20/2025 1:19 PM EDT [facility] Total Protein 6.4 6.3 - 7.9 g/dL 03/20/2025 1:19 PM EDT [facility] Albumin, Plasma 4.1 3.5 - 5.2 g/dL 03/20/2025 1:19 PM EDT [facility] AST, Plasma 26 10 - 35 U/L 03/20/2025 1:19 PM EDT [facility] ALT, Plasma 30 10 - 35 U/L 03/20/2025 1:19 PM EDT [facility] Alkaline Phosphatase, Plasma 108 46 - 142 U/L 03/20/2025 1:19 PM EDT [facility] Total Bilirubin, Plasma 0.4 0.2 - 1.1 mg/dL 03/20/2025 1:19 PM EDT [facility] eGFRcr 102.3 mL/min/1.7 3m*2 03/20/2025 1:19 PM EDT [facility] Comment:Reported eGFRcr in m L/min/1.73m2 is based the CKD-EPI 2020 equation that does not use a race coefficient. Blood Venous blood specimen / Unknown Venipuncture / Unknown 03/20/2025 11:21 AM EDT 03/20/2025 11:21 AM EDT Leonila Doe MD LAB BLOOD ORDERABLES F inal Result [facility] [address] [place] [address] from Last 3 Mon[address] Insurance [facility] MEDICARE Care Teams Public Policy Professor Relationship Specialty Start Date End Date Mickey Maldonado MD PCP - General Family Medicine 06/24/23 Leonila Doe MD [address] [facility] [address] [place] [address] Consulting Physician Neurology 06/24/23
--- OUTSIDE RECORDS SUMMARY | 2025-05-03 08:54 | XMS_ITS | Encounter Summary ---
Author Organization [facility] Address [address] [place] [address] Care Team Providers Care Meatcutter Name Role Phone Brodie Castro MD Primary Care Provider + [phone] Mickey Maldonado MD Primary Care Provider Alyssa vailable Leonila Doe MD Unavailable [phone] Reason for Referral * Consultation (Routine) - Closed Specialty Diagnoses / Procedures Referred By Contac t Referred To Contact Neurology Diagnoses Multiple sclerosis (CMS/HCC) Amnesia memory loss Pietro Inman APRN [address] [place] [address] Phone: tel: fax: Leonila Doe MD [address] [facility] [address] [place] [address] Phone: tel: fax: Referral ID Status Reason Start Date Expiration Date V isits Requested Visits Authorized [id number] Closed Specialty Services Required 03/09/2023 09/07/2024 1 1 Encounter Details Date Type Department Care Team (Late st Contact Info) Description 03/09/2023 Community [facility] [address] [place] [address] Pietro Inman APRN [address] [place] [address] Multiple sclerosis (CMS/HCC) (Primary Dx); [...] Visit [place] [facility] [address], [address] [place] [address] Leonila Doe MD [address] [place] [address] Scheduled Referrals Name Type Priority Associated Diagnoses Order Schedule Ambulatory referral to Neurology Outpatient Referral Routine Multiple sclerosis (CMS/HCC) Amnesia memory loss Expected: 03/09/2023, Expires: 09/09/2024 documented as of this encounter Visit Diagnoses Diagnosis Multiple sclerosis (CMS/HCC)- Primary Multiple sclerosis Amnesia memory loss Memory loss documented in this encounter Care Teams Meatcutter Relationship Specialty Start Date End Date Brodie Castro MD [address] [place] [address] PCP - General 12/26/20 06/23/23 Mickey Maldonado MD [address] [place] [address] PCP - General Family Medicine 06/24/23 Leonila Doe MD [address] [place] [address] Consulting Physician Neurology 06/24/23 documented as of this encounter
--- OUTSIDE RECORDS SUMMARY | 2025-05-03 08:55 | XMS_ITS | Encounter Summary ---
Author Organization Healthcare Address [address] [place] [address] Care Team Providers Care Dietary Aide Cook Name Role Phone Mickey Maldonado MD Primary Care Provider Leonila Roy MD Unavailable + [phone] Encounter Details Date Type Department Care Team (Late st Contact Info) Description 03/22/2025 Telephone [place] [facility] [address], [address] [place] [address] Leonila Doe MD [address] [place] [address] Social History Tobacco Use Types [...] optimal time of day to reach caller: [phone] Note: Please do not reply to this [...] Visit [place] [facility] [address], [address] [place] [address] Leonila Doe MD [address] [place] [address] documented as of this encounter [...] documented as of this encounter Care Teams Dietary Aide Cook Relationship Specialty Start Date End Date Mickey Maldonado MD PCP - General Family Medicine 06/24/23 Leonila Doe MD [address] [place] [address] Consulting Physician Neurology 06/24/23 documented as of this encounter
--- OUTSIDE RECORDS SUMMARY | 2025-05-03 08:55 | XMS_ITS | Clinical Summary ---
Author Organization [facility] Address [facility] [place] [address] Care Team Providers Care Personnel Quality Assurance Auditor Name Role Phone Unavailable Primary Care Provider [...] therelease of HIV test results or diagnoses. [id number] Social History Tobacco Use Types Packs/Day Years Used Date Smoking Tobacco: Never Assessed Comments Unknown Sex and Gender Information Value Date Recorded Sex Assigned at Not on file Legal Sex Female 9:26 AM EDT Gender Identity Not on file Sexual Orientation Not on file Plan of Treatment Not on file
--- OUTSIDE RECORDS SUMMARY | 2025-05-03 08:55 | XMS_ITS | Encounter Summary ---
Author Organization Healthcare Address [address] [place] [address] Care Team Providers Care Gas Booster Engineer Name Role Phone Mickey Maldonado MD Primary Care Provider Leonila Roy MD Unavailable + [phone] Encounter Details Date Type Department Care Team [...] Visit [place] [facility] [address], [address] [place] [address] Leonila Doe MD [address] [place] [address] documented as of this encounter [...] documented as of this encounter Care Teams Gas Booster Engineer Relationship Specialty Start Date End Date Mickey Maldonado MD PCP - General Family Medicine 06/24/23 Leonila Doe MD [address] [facility] [address] [place] [phone] Consulting Physician Neurology 06/24/23 documented as of this encounter
[2025-05-03 09:02] VITALS: BP 122/67; PULSE 71; RESP 18; TEMP 36.3; O2SAT 97
[2025-05-03] MEDS: ACETAMINOPHEN 325MG TAB 650 MG PO (09:02)
[2025-05-03] MEDS: METHYLPREDNISOLONE SOD SUCC 125MG VIAL 125 MG IV (09:02)
[2025-05-03] MEDS: SODIUM CHLORIDE 0.9% 10ML FLUSH SYRINGE 10 ML IV (09:04)
[2025-05-03 09:33] VITALS: BP 120/62; PULSE 76; RESP 18; O2SAT 98
[2025-05-03] MEDS: UBLITUXIMAB XIIY IV (09:33)
[2025-05-03] MEDS: SODIUM CHLORIDE 0.9% IV (09:33)
[2025-05-03 10:03] VITALS: BP 118/60; PULSE 72; RESP 20; O2SAT 98
[2025-05-03 10:33] VITALS: BP 111/73; PULSE 72; RESP 20; O2SAT 98
[2025-05-03 11:03] VITALS: BP 108/71; PULSE 70; RESP 20; O2SAT 97
[2025-05-03 11:50] VITALS: BP 103/69; PULSE 75; RESP 18; O2SAT 98
== END 2025-05-03 11:50 | disposition home or self-care (01) ==
LOC: INF 08:52
PROVIDERS: PCP Family Medicine; Visit Provider Psychiatry & Neurology Neurology
DX: G35 Multiple sclerosis (principal)
CPT/HCPCS: 96365; 96366; J2329; J2919; J7050

== ENCOUNTER 2025-05-28 09:55 | Outpatient (CLI) | payer MEDICARE, SELFPAY ==
--- OUTSIDE RECORDS SUMMARY | 2025-05-28 10:01 | XMS_ITS | Encounter Summary ---
Author Organization [facility] Address [address] [place] [address] Care Team Providers Care Procurement Intern Name Role Phone Mickey Maldonado MD Primary Care Provider Leonila Roy MD Unavailable + [phone] Encounter Details Date Type Department Care Team (Late Contact Info) Description 04/22/2025 Orders Only [facility] Infusion [address] [place] [address] Negar Shin, RN [facility][1] CLINIC Social History Tobacco Use Types Packs/Day [...] Visit [place] [facility] [address] [place] [address] Leonila Doe MD [address] [place] [address] documented as of this encounter [...] documented as of this encounter Care Teams Procurement Intern Relationship Specialty Start Date End Date Mickey Maldonado MD PCP - General Family Medicine 06/24/23 Leonila Doe MD [address] [place] [address] Consulting Physician Neurology 06/24/23 documented as of this encounter
--- OUTSIDE RECORDS SUMMARY | 2025-05-28 10:01 | XMS_ITS | Encounter Summary ---
Author Organization Healthcare Address [address] [place] [address] Care Team Providers Care Solar Field Installation Crew Member Name Role Phone Brodie Castro MD Primary Care Provider + [phone] Mickey Maldonado MD Primary Care Provider Alyssa slyilable Leonila Doe MD Unavailable [phone] Reason for Referral * Consultation (Routine) - Closed Specialty Diagnoses / Procedures Referred By Contac t Referred To Contact Neurology Diagnoses Multiple sclerosis Amnesia memory loss Pietro Inman APRN [address] [place] [address] Phone: tel: fax: Leonila Doe MD [address] [facility] [address] [place] [address] Phone: tel: fax: Referral ID Status Reason Start Date Expiration Date V isits Requested Visits Authorized [id number] Closed Specialty Services Required 03/09/2023 09/07/2024 1 1 Encounter Details Date Type Department Care Team (Late st Contact Info) Description 03/09/2023 Community [facility] Community Practice [address] [place] [address] Pietro Inman APRN [address] [place] [address] Multiple sclerosis (CMS/HCC) (Primary Dx); [...] Visit [place] [facility] [address], [address] [place] [address] Leonila Doe MD [address] [facility] [place] [address] Scheduled Referrals Name Type Priority Associated Diagnoses Order Schedule Ambulatory referral to Neurology Outpatient Referral Routine Multiple sclerosis (CMS/HCC) Amnesia memory loss Expected: 03/09/2023, Expires: 09/09/2024 documented as of this encounter Visit Diagnoses Diagnosis Multiple sclerosis- Primary Amnesia memory loss Memory loss documented in this encounter Care Teams Solar Field Installation Crew Member Relationship Specialty Start Date End Date Brodie Castro MD [address] [place] [address] PCP - General 12/26/20 06/23/23 Mickey Maldonado MD [address] [facility] [address] [place] [address] PCP - General Family Medicine 06/24/23 Leonila Doe MD [address] [place] [address] Consulting Physician Neurology 06/24/23 documented as of this encounter
--- OUTSIDE RECORDS SUMMARY | 2025-05-28 10:01 | XMS_ITS | Encounter Summary ---
Author Organization Healthcare Address [address] [place] [address] Care Team Providers Care Sole Layer Name Role Phone Mickey Maldonado MD Primary Care Provider Leonila Roy MD Unavailable + [phone] Encounter Details Date Type Department Care Team (Late st Contact Info) Description 03/22/2025 Telephone [place] [facility] [address], [address] [place] [address] Leonila Doe MD [address] [place] [address] Social History Tobacco Use Types [...] optimal time of day to reach caller: [phone] Note: Please do not reply to this [...] Visit [place] [facility] [address], [address] [place] [address] Leonila Doe MD [address] [place] [address] documented as of this encounter [...] documented as of this encounter Care Teams Sole Layer Relationship Specialty Start Date End Date Mickey Maldonado MD PCP - General Family Medicine 06/24/23 Leonila Doe MD [address] [place] [address] Consulting Physician Neurology 06/24/23 documented as of this encounter
--- OUTSIDE RECORDS SUMMARY | 2025-05-28 10:01 | XMS_ITS | Clinical Summary ---
Author Organization [facility] Address [address] [place] [place] [address] Care Team Providers Care Nailing Machine Operator Automatic Name Role Phone Mickey Maldonado MD Primary Care Provider Leonila Roy MD Unavailable + [phone] Allergies Active Allergy Reactions Criticality Noted Date [...] Department Care Team Description 04/22/2025 Orders Only [facility] Infusion [address] [place] [address] Negar Shin RN 03/22/2025 Telephone [facility] [address], 1st [place] [address] Leonila Doe MD 03/20/2025 10:00 AM EDT Office Visit [facility] [address], 1st [place] [address] Leonila Doe MD MS (multiple sclerosis) ([facility]) (Primary Dx) 03/20/2025 Travel 03/17/2025 Travel [...] Visit [place] [facility] [address], [address] [place] [address] Leonila Doe MD [address] [place] [address] Health Maintenance Due Date Last Done Comments [...] - Risk 60-74 years 1-dose series) 2021 ETA-BCYIB-15 Vaccine (4 - season) 2025 07/19/2022, 04/28/2021, [...] and Differential (03/20/2025 11:21 AM EDT) [facility] WBC Count 11.40(H) 3.70 - 10.30 10*3/uL LAB HEMATOLOGY METHOD 03/20/2025 1:06 PM EDT [facility] RBC Count 4.56 3.90 - 5.20 10*6/uL LAB HEMATOLOGY METHOD 03/20/2025 1:06 PM EDT [facility] HGB 14.1 11.2 - 15.7 g/dL LAB HEMATOLOGY METHOD 03/20/2025 1:06 PM EDT [facility] HCT 42.6 34.0 - 45.0 % LAB HEMATOLOGY METHOD 03/20/2025 1:06 PM EDT [facility] Platelet Count 356 155 - 369 10*3/uL LAB HEMATOLOGY METHOD 03/20/2025 1:06 PM EDT [facility] MCV 93 79 - 98 fL LAB HEMATOLOGY METHOD 03/20/2025 1:06 PM EDT [facility] MCH 30.9 26.0 - 32.0 pg LAB HEMATOLOGY METHOD 03/20/2025 1:06 PM EDT [facility] MCHC 33.1 30.7 - 35.5 g/dL LAB HEMATOLOGY METHOD 03/20/2025 1:06 PM EDT [facility] RDW 13.3 11.5 - 14.5 % LAB HEMATOLOGY METHOD 03/20/2025 1:06 PM EDT [facility] MPV 10.0 8.8 - 12.5 fL LAB HEMATOLOGY METHOD 03/20/2025 1:06 PM EDT [facility] nRBC 0.0 <=0.0 per 100 WBCs LAB HEMATOLOGY METHOD 03/20/2025 1:06 PM EDT [facility] Differential Type Automated LAB HEMATOLOGY METHOD 03/20/2025 1:06 PM EDT [facility] Neutrophils % 77 % LAB HEMATOLOGY METHOD 03/20/2025 1:06 PM EDT [facility] Lymphocytes % 11 % LAB HEMATOLOGY METHOD 03/20/2025 1:06 PM EDT [facility] Monocytes % 9 % LAB HEMATOLOGY METHOD 03/20/2025 1:06 PM EDT [facility] Eosinophils % 1 % LAB HEMATOLOGY METHOD 03/20/2025 1:06 PM EDT [facility] Basophils % 1 % LAB HEMATOLOGY METHOD 03/20/2025 1:06 PM EDT [facility] Immature Granulocytes % 1 % LAB HEMATOLOGY METHOD 03/20/2025 1:06 PM EDT [facility] Neutrophils Absolute 8.79(H) 1.60 - 6.10 10*3/uL LAB HEMATOLOGY METHOD 03/20/2025 1:06 PM EDT [facility] Lymphocytes Absolute 1.29 1.20 - 3.90 10*3/uL LAB HEMATOLOGY METHOD 03/20/2025 1:06 PM EDT [facility] Monocytes Absolute 1.07(H) 0.30 - 0.90 10*3/uL LAB HEMATOLOGY METHOD 03/20/2025 1:06 PM EDT [facility] Eosinophils Absolute 0.07 0.00 - 0.50 10*3/uL LAB HEMATOLOGY METHOD 03/20/2025 1:06 PM EDT [facility] Basophils Absolute 0.12(H) 0.00 - 0.10 10*3/uL LAB HEMATOLOGY METHOD 03/20/2025 1:06 PM EDT [facility] Immature Granulocytes Absolute 0.06 0.00 - 0.06 10*3/uL LAB HEMATOLOGY METHOD 03/20/2025 1:06 PM EDT [facility] Blood Venous blood specimen / Unknown Venipuncture / Unknown 03/20/2025 11:21 AM EDT 03/20/2025 11:21 AM EDT Narrative [facility] - 03/20/2025 1:06 PM EDT Therapeutic decision making should be based on absolute values, rather than percentages. us Leonila Doe MD LAB BLOOD ORDERABLES F inal Result [facility] [address] [place] [address] * (ABNORMAL) Comprehensive Metabolic Panel, Plasma (03/20/2025 11:21 AM EDT) [facility] Glucose, Plasma 88 74 - 99 mg/dL 03/20/2025 1:19 PM EDT [facility] BUN, Plasma 11 8 - 23 mg/dL 03/20/2025 1:19 PM EDT [facility] Creatinine, Plasma 0.57(L) 0.60 - 1.10 mg/dL 03/20/2025 1:19 PM EDT [facility] BUN/Creatinine Ratio 03/20/2025 1:19 PM EDT [facility] Sodium, Plasma 142 136 - 145 mmol/L 03/20/2025 1:19 PM EDT [facility] Potassium, Plasma 4.0 3.6 - 4.9 mmol/L 03/20/2025 1:19 PM EDT [facility] Chloride, Plasma 104 97 - 107 mmol/L 03/20/2025 1:19 PM EDT [facility] CO2, Plasma 28 22 - 29 mmol/L 03/20/2025 1:19 PM EDT [facility] Anion Gap 10 6 - 16 mmol/L 03/20/2025 1:19 PM EDT [facility] Total Calcium, Plasma 9.2 8.9 - 10.2 mg/dL 03/20/2025 1:19 PM EDT [facility] Total Protein 6.4 6.3 - 7.9 g/dL 03/20/2025 1:19 PM EDT [facility] Albumin, Plasma 4.1 3.5 - 5.2 g/dL 03/20/2025 1:19 PM EDT [facility] AST, Plasma 26 10 - 35 U/L 03/20/2025 1:19 PM EDT [facility] ALT, Plasma 30 10 - 35 U/L 03/20/2025 1:19 PM EDT [facility] Alkaline Phosphatase, Plasma 108 46 - 142 U/L 03/20/2025 1:19 PM EDT [facility] Total Bilirubin, Plasma 0.4 0.2 - 1.1 mg/dL 03/20/2025 1:19 PM EDT [facility] eGFRcr 102.3 mL/min/1.7 3m*2 03/20/2025 1:19 PM EDT [facility] Comment:Reported eGFRcr in m L/min/1.73m2 is based the CKD-EPI 2020 equation that does not use a race coefficient. Blood Venous blood specimen / Unknown Venipuncture / Unknown 03/20/2025 11:21 AM EDT 03/20/2025 11:21 AM EDT Leonila Doe MD LAB BLOOD ORDERABLES F inal Result [facility] [address] [place] [address] from Last 3 Months Insurance [facility] MEDICARE Care Teams Nailing Machine Operator Automatic Relationship Specialty Start Date End Date Mickey Maldonado MD PCP - General Family Medicine 06/24/23 Leonila Doe MD [address] [facility] [address] [place] [address] Consulting Physician Neurology 06/24/23
--- OUTSIDE RECORDS SUMMARY | 2025-05-28 10:01 | XMS_ITS | Encounter Summary ---
Author Organization [facility] Address [address] [place] [address] Care Team Providers Care Electro Mechanical Designer Name Role Phone Mickey Maldonado MD Primary Care Provider Leonila Roy MD Unavailable + [phone] Reason for Visit * Reason Onset Date Comments [facility] 09/20/2024 Encounter Details Date Type Department Care Team (Late st Contact Info) Description 09/20/2024 Telephone [facility] Infusion [address] [place] [id number] Nolvia Santoro, [facility] [address] [place] [address] [facility] Social History Tobacco Use Types [...] Visit [place] [facility] [address] [place] [address] Leonila Doe MD [address] [facility] [address] [place] [address] documented as of this encounter Visit Diagnoses Diagnosis MS (multiple sclerosis)- Primary Multiple sclerosis documented in this encounter Additional Health Concerns Assessment Noted Time PHQ-9 Depression Total Score: 5 08/30/19 11:31 AM EST A fall risk assessment has been complete d for the patient 08/30/2024 11:31 AM EST A Body Mass Index follow-up plan has been documented for the patient 09/18/2024 1:18 PM EST documented as of this encounter Care Teams Electro Mechanical Designer Relationship Specialty Start Date End Date Mickey Maldonado MD PCP - General Family Medicine 06/24/23 Leonila Doe MD [address] [place] [address] Consulting Physician Neurology 06/24/23 documented as of this encounter
--- OUTSIDE RECORDS SUMMARY | 2025-05-28 10:01 | XMS_ITS | Encounter Summary ---
Author Organization Healthcare Address [address] [place] [address] Care Team Providers Care Manager Home Improvement Name Role Phone Mickey Maldonado MD Primary Care Provider Leonila Roy MD Unavailable + [phone] Encounter Details Date Type Department Care Team (Late Contact Info) Description 07/24/2024 Orders Only External Location [address] [place] [address] Provider, External Social History Tobacco Use Types [...] Visit [place] [facility] [address], [address] [place] [address] Leonila Doe MD [address] [place] [address] documented as of this encounter Procedures Procedure [...] documented as of this encounter Care Teams Manager Home Improvement Relationship Specialty Start Date End Date Mickey Maldonado MD PCP - General Family Medicine 06/24/23 Leonila Doe MD [address] [facility] [address] [place] [address] Consulting Physician Neurology 06/24/23 documented as of this encounter
--- OUTSIDE RECORDS SUMMARY | 2025-05-28 10:02 | XMS_ITS | Clinical Summary ---
Author Organization [facility] Address [facility] [place] [address] Care Team Providers Care Digital Forensic Examiner Name Role Phone Unavailable Primary Care Provider [...] therelease of HIV test results or diagnoses. [id number] Social History Tobacco Use Types Packs/Day Years Used Date Smoking Tobacco: Never Assessed Comments Unknown Sex and Gender Information Value Date Recorded Sex Assigned at Not on file Legal Sex Female 9:26 AM EDT Gender Identity Not on file Sexual Orientation Not on file Plan of Treatment Not on file
[2025-05-31 16:12] LABS: Cortisol,AM 10.7 ug/dL (6.2-19.4)
== END 2025-05-28 23:59 | disposition home or self-care (01) ==
LOC: LAB 09:55
PROVIDERS: PCP Family Medicine
DX: R63.4 Abnormal weight loss (principal); R53.83 Other fatigue
CPT/HCPCS: 36415; 82533

== ENCOUNTER 2025-06-20 14:32 | Outpatient (CLI) | payer MEDICARE, SELFPAY ==
--- OUTSIDE RECORDS SUMMARY | 2025-06-20 14:35 | XMS_ITS | Encounter Summary ---
Author Organization [facility] Address [address] [place] [address] Care Team Providers Care Wheel Setter Name Role Phone Mickey Maldonado MD Primary Care Provider Leonila Roy MD Unavailable + [phone] Encounter Details Date Type Department Care Team (Late Contact Info) Description 04/22/2025 Orders Only [facility] Infusion [address] [place] [address] Negar Shin, RN [facility] Social History Tobacco Use Types Packs/Day Years Used Date Smoking Tobacco: Every Day Cigarettes 0.3 15.2 Started: 01/30/2016 Smokeless Tobacco: Never Alcohol Use [...] Visit [place] [facility] [address], [address] [place] [address] Leonila Doe MD [address] [place] [address] documented as of this encounter [...] documented as of this encounter Care Teams Wheel Setter Relationship Specialty Start Date End Date Mickey Maldonado MD PCP - General Family Medicine 06/24/23 Leonila Doe MD [address] [place] [address] Consulting Physician Neurology 06/24/23 documented as of this encounter
--- OUTSIDE RECORDS SUMMARY | 2025-06-20 14:35 | XMS_ITS | Encounter Summary ---
Author Organization Healthcare Address [address] [place] [address] Care Team Providers Care Childcare Director Name Role Phone Brodie Castro MD Primary Care Provider + [phone] Mickey Maldonado MD Primary Care Provider Alyssa slyilable Leonila Doe MD Unavailable [phone] Reason for Referral * Consultation (Routine) - Closed Specialty Diagnoses / Procedures Referred By Contac t Referred To Contact Neurology Diagnoses Multiple sclerosis Amnesia memory loss Pietro Inman APRN [address] [place] [address] Phone: tel: fax: Leonila Doe MD [address] [facility] [address] [place] [address] Phone: tel: fax: Referral ID Status Reason Start Date Expiration Date V isits Requested Visits Authorized [id number] Closed Specialty Services Required 03/09/2023 09/07/2024 1 1 Encounter Details Date Type Department Care Team (Late st Contact Info) Description 03/09/2023 Community [facility] Community Practice [address] [place] [address] Pietro Inman APRN [address] [place] [address] Multiple sclerosis (CMS/HCC) (Primary Dx); [...] Visit [place] [facility] [address], [address] [place] [address] Leonila Doe MD [address] [facility] [place] [address] Scheduled Referrals Name Type Priority Associated Diagnoses Order Schedule Ambulatory referral to Neurology Outpatient Referral Routine Multiple sclerosis (CMS/HCC) Amnesia memory loss Expected: 03/09/2023, Expires: 09/09/2024 documented as of this encounter Visit Diagnoses Diagnosis Multiple sclerosis- Primary Amnesia memory loss Memory loss documented in this encounter Care Teams Childcare Director Relationship Specialty Start Date End Date Brodie Castro MD [address] [place] [address] PCP - General 12/26/20 06/23/23 Mickey Maldonado MD [address] [facility] [address] [place] [address] PCP - General Family Medicine 06/24/23 Leonila Doe MD [address] [place] [address] Consulting Physician Neurology 06/24/23 documented as of this encounter
--- OUTSIDE RECORDS SUMMARY | 2025-06-20 14:35 | XMS_ITS | Clinical Summary ---
Author Organization [facility] Address [address] [place] [address] Care Team Providers Care Lodging Manager Name Role Phone Mickey Maldonado MD Primary Care Provider Leonila Roy MD Unavailable + [phone] Allergies Active Allergy Reactions Criticality Noted Date [...] Care Team Description 04/22/2025 Orders Only [facility] [address] [place] [address] Negar Shin RN 03/22/2025 Telephone [facility] [address] [place] [address] Leonila Doe MD 03/20/2025 10:00 AM EDT Office Visit [facility] [address] [place] [address] Leonila Doe MD MS (multiple sclerosis) ([facility]) (Primary Dx) 03/20/2025 Travel from Last 3 Months Immunizations Immunization Administration Dates Next Due Influenza, injectable, quadrivalent 05/17/2017,1 ,06/03/2015 Influenza, seasonal, injectable 07/03/2014 Pneumococcal Polysaccharide PPV23 04/01/2020 Family History Medical History Relation Name Comments Bursitis Father Other cancer Father Anxiety disorder Mother Jenny Green Depression Mother Jenny Green Migraines Mother's Sister Heidi Gandhi Relation Name Status Comments Father Mother Jenny Green Alive Mother's Sister Heidi Castellonsell Alive Social History Tobacco Use Types Packs/Day Years Used Date Smoking Tobacco: Every Day Cigarettes 0.3 15.2 Started: 01/30/2016 Smokeless Tobacco: Never Tobacco Cessation:Ready [...] Visit [place] [facility] [address] [place] [address] Leonila Doe MD [address] [place] [address] Health Maintenance Due Date Last Done Comments [...] - Risk 60-74 years 1-dose series) 2021 [id number] Vaccine (4 - 2024- season) 2025 07/19/2022, 04/28/2021, 03/29/2021 UKY-Influenza Vaccine [...] CBC and Differential (03/20/2025 11:21 AM EDT) [facility] WBC Count 11.40(H) 3.70 - 10.30 10*3/uL LAB HEMATOLOGY METHOD 03/20/2025 1:06 PM EDT [facility] RBC Count 4.56 3.90 - 5.20 10*6/uL LAB HEMATOLOGY METHOD 03/20/2025 1:06 PM EDT [facility] HGB 14.1 11.2 - 15.7 g/dL LAB HEMATOLOGY METHOD 03/20/2025 1:06 PM EDT [facility] HCT 42.6 34.0 - 45.0 % LAB HEMATOLOGY METHOD 03/20/2025 1:06 PM EDT [facility] Platelet Count 356 155 - 369 10*3/uL LAB HEMATOLOGY METHOD 03/20/2025 1:06 PM EDT [facility] MCV 93 79 - 98 fL LAB HEMATOLOGY METHOD 03/20/2025 1:06 PM EDT [facility] MCH 30.9 26.0 - 32.0 pg LAB HEMATOLOGY METHOD 03/20/2025 1:06 PM EDT [facility] MCHC 33.1 30.7 - 35.5 g/dL LAB HEMATOLOGY METHOD 03/20/2025 1:06 PM EDT [facility] RDW 13.3 11.5 - 14.5 % LAB HEMATOLOGY METHOD 03/20/2025 1:06 PM EDT [facility] MPV 10.0 8.8 - 12.5 fL LAB HEMATOLOGY METHOD 03/20/2025 1:06 PM EDT [facility] nRBC 0.0 <=0.0 per 100 WBCs LAB HEMATOLOGY METHOD 03/20/2025 1:06 PM EDT [facility] Differential Type Automated LAB HEMATOLOGY METHOD 03/20/2025 1:06 PM EDT [facility] Neutrophils % 77 % LAB HEMATOLOGY METHOD 03/20/2025 1:06 PM EDT [facility] Lymphocytes % 11 % LAB HEMATOLOGY METHOD 03/20/2025 1:06 PM EDT [facility] Monocytes % 9 % LAB HEMATOLOGY METHOD 03/20/2025 1:06 PM EDT [facility] Eosinophils % 1 % LAB HEMATOLOGY METHOD 03/20/2025 1:06 PM EDT [facility] Basophils % 1 % LAB HEMATOLOGY METHOD 03/20/2025 1:06 PM EDT [facility] Immature Granulocytes % 1 % LAB HEMATOLOGY METHOD 03/20/2025 1:06 PM EDT [facility] Neutrophils Absolute 8.79(H) 1.60 - 6.10 10*3/uL LAB HEMATOLOGY METHOD 03/20/2025 1:06 PM EDT [facility] Lymphocytes Absolute 1.29 1.20 - 3.90 10*3/uL LAB HEMATOLOGY METHOD 03/20/2025 1:06 PM EDT [facility] Monocytes Absolute 1.07(H) 0.30 - 0.90 10*3/uL LAB HEMATOLOGY METHOD 03/20/2025 1:06 PM EDT [facility] Eosinophils Absolute 0.07 0.00 - 0.50 10*3/uL LAB HEMATOLOGY METHOD 03/20/2025 1:06 PM EDT [facility] Basophils Absolute 0.12(H) 0.00 - 0.10 10*3/uL LAB HEMATOLOGY METHOD 03/20/2025 1:06 PM EDT [facility] Immature Granulocytes Absolute 0.06 0.00 - 0.06 10*3/uL LAB HEMATOLOGY METHOD 03/20/2025 1:06 PM EDT [facility] Blood Venous blood specimen / Unknown Venipuncture / Unknown 03/20/2025 11:21 AM EDT 03/20/2025 11:21 AM EDT Narrative [facility] - 03/20/2025 1:06 PM EDT Therapeutic decision making should be based on absolute values, rather than percentages. us Leonila Doe MD LAB BLOOD ORDERABLES F inal Result [facility] [address] [place] [address] * (ABNORMAL) Comprehensive Metabolic Panel, Plasma (03/20/2025 11:21 AM EDT) Glucose, Plasma 88 74 - 99 mg/dL 03/20/2025 1:19 PM EDT [facility] BUN, Plasma 11 8 - 23 mg/dL 03/20/2025 1:19 PM EDT [facility] Creatinine, Plasma 0.57(L) 0.60 - 1.10 mg/dL 03/20/2025 1:19 PM EDT [facility] BUN/Creatinine Ratio 03/20/2025 1:19 PM EDT [facility] Sodium, Plasma 142 136 - 145 mmol/L 03/20/2025 1:19 PM EDT [facility] Potassium, Plasma 4.0 3.6 - 4.9 mmol/L 03/20/2025 1:19 PM EDT [facility] Chloride, Plasma 104 97 - 107 mmol/L 03/20/2025 1:19 PM EDT [facility] CO2, Plasma 28 22 - 29 mmol/L 03/20/2025 1:19 PM EDT [facility] Anion Gap 10 6 - 16 mmol/L 03/20/2025 1:19 PM EDT [facility] Total Calcium, Plasma 9.2 8.9 - 10.2 mg/dL 03/20/2025 1:19 PM EDT [facility] Total Protein 6.4 6.3 - 7.9 g/dL 03/20/2025 1:19 PM EDT [facility] Albumin, Plasma 4.1 3.5 - 5.2 g/dL 03/20/2025 1:19 PM EDT [facility] AST, Plasma 26 10 - 35 U/L 03/20/2025 1:19 PM EDT [facility] ALT, Plasma 30 10 - 35 U/L 03/20/2025 1:19 PM EDT [facility] Alkaline Phosphatase, Plasma 108 46 - 142 U/L 03/20/2025 1:19 PM EDT [facility] Total Bilirubin, Plasma 0.4 0.2 - 1.1 mg/dL 03/20/2025 1:19 PM EDT [facility] eGFRcr 102.3 mL/min/1.7 3m*2 03/20/2025 1:19 PM EDT [facility] Comment:Reported eGFRcr in m L/min/1.73m2 is based the CKD-EPI 2020 equation that does not use a race coefficient. Blood Venous blood specimen / Unknown Venipuncture / Unknown 03/20/2025 11:21 AM EDT 03/20/2025 11:21 AM EDT Leonila Doe MD LAB BLOOD ORDERABLES F inal Result [facility] [address] [place] [address] from Last 3 Months Insurance [employer] Care Teams Lodging Manager Relationship Specialty Start Date End Date Mickey Maldonado MD PCP - General Family Medicine 06/24/23 Leonila Doe MD [address] [facility] [address] [place] [id number] Consulting Physician Neurology 06/24/23
--- OUTSIDE RECORDS SUMMARY | 2025-06-20 14:35 | XMS_ITS | Data Portability ---
Author Organization [facility] [place] Address [address] [facility] [address] [address] [place] [address] Care Team Providers Care Field Inspector Name Role Phone BRODIE MARSHALL Referring Provider BRODIE MARSHALL Primary Care Provider Assessment Encounter Date Assessment Date Assessment LastModified by Organization Details LastModified Time 03/30/2018 03/30/2018 01/19/13 vitamin D 32 11/14/11 CSF shows > 5 OCBs present in CSF not present in serum last MRI brain report scanned to chart 01/30/2014 - multiple WM lesions, stable from 2012 [email or web address] Not available 03/30/2018 10:45:31 04/27/2018 04/27/2018 01/19/13 vitamin D 32 11/14/11 CSF shows > 5 OCBs present in CSF not present in serum 03/30/18 vit D 28, B12 217, CMP with elevated AlkPhos 120, AST 43, ALT 57 last MRI brain report scanned to chart 01/30/2014 - multiple WM lesions, stable from 201204/06/2018 MRI brain w/wo scanned to chart shows progression with more white matter lesions including L centrum semiovale and b/l occipital paraventricular WM; there is also note of 4 cm lesion in the left parietal lobe that is concerning for a possible hemorrhage; it does not enhance but it does show up on the margin on T1 with hyperintensity. [email or web address] Not available 04/27/2018 15:47:12 Plan of Treatment Reminders Order Date Submit Date Provider Last Modified By Organization Details Last Modified Time Details Appointments None recorded. Lab CBC w/ auto diff 2017 018 [facility], [address] [place] [address], [phone], 8 12:03:10 CMP, serum or plasma 2017 [facility], [address] [place] [address], [phone], 8 12:16:12 vitamin B12, serum 2017 [facility], [address] [place] [address], [phone], 8 12:32:13 vitamin D, 25-hydroxy , total, serum 2017 [facility], [address] [place] [address], [address], 8 12:32:34 Referral None recorded. Procedures visual evoked potential (PROC) [address] Scheduling, 1 [facility] , [place], [address], 8 15:30:43 Surgeries None recorded. Imaging MRI, brain, w/wo contrast [address] (Scheduling), [address], [place], [address], 8 15:51:50 Medication Orders Lamictal Starter ([facility]) Kit 25 mg (42)-100 mg (7) tablets, dose pack 2017 018 [facility], [address] [facility] [place], [address], 8 15:48:35 Lamictal 100 mg tablet 2017 018 [facility], [address] [place], [address], 8 15:48:36 Tecfidera 120 mg (14)-240 mg (46) capsule,de layed release 2017 018 [facility], [address], [address], 8 15:48:36 Tecfidera 240 mg capsule,de layed release 2017 018 [facility], [address], [address], 8 15:48:37 Lamictal Starter ([facility]) Kit 25 mg (42)-100 mg (7) tablets, dose pack 2017 018 [facility]FACE [facility], [address], [address], 8 10:42:46 Lamictal 100 mg tablet 2017 018 [facility], [address], [address], 8 10:42:45 Patient TargetsNo targets recorded. Patient Instructions Encounter Date Encounter Id Patient Instructions Last Modified By Organization Details Last Modified Time 03/30/2018 [id number] medical record request* - please provide EEG report [email or web address] Not available 04/11/2018 15:37:48 sleep apnea: car e instructions [email or web address] Not available 03/30/2018 10:42:41 04/27/2018 [id number] medical record request* - please provide EEG report [email or web address] Not available 05/04/2018 11:36:32 sleep apnea: car e instructions [email or web address] Not available 04/27/2018 15:48:31 Reason for Referral None Reported. Results Created Date Observation Date Name Description Value Unit Range Abnormal Flag Note LastModifiedBy Organization Detail LastModifiedTime 03/30/20 18 03/30/2018 CBC w/ auto diff white blood cells 8.2 K/uL 3.8-10 .8 normal Not Available [facility] [address] [place], [address], 03/30/2018 12:03:10 03/30/20 18 03/30/2018 CBC w/ auto diff red blood cells 4.96 M/uL 3.80-5 .20 normal Not Available [facility] [address] [place] [address], [address], 03/30/2018 12:03:10 03/30/20 18 03/30/2018 CBC w/ auto diff hemoglobin 15.3 g/dL 12.0-1 6.0 normal Not Available [facility] [address] [place] [address], [address], 03/30/2018 12:03:10 03/30/20 18 03/30/2018 CBC w/ auto diff hematocrit 45.3 % 35.0-4 7.0 normal Not Available [facility] [address] [place] [address], [address], 03/30/2018 12:03:10 03/30/20 18 03/30/2018 CBC w/ auto diff MCV 91 fL 80-100 normal Not Available [facility] [address] [place] [address], [address], 03/30/2018 12:03:10 03/30/20 18 03/30/2018 CBC w/ auto diff MCH 31 pg 26-35 normal Not Available [facility] [address] [place] [address], [address], 03/30/2018 12:03:10 03/30/20 18 03/30/2018 CBC w/ auto diff MCHC 34 g/dL 32-36 normal Not Available [facility] [address] [place] [address], [address], 03/30/2018 12:03:10 03/30/20 18 03/30/2018 CBC w/ auto diff RDW 13.3 % 11.0-1 5.0 normal Not Available [facility] [address] [place] [address], [address], 03/30/2018 12:03:10 03/30/20 18 03/30/2018 CBC w/ auto diff MPV 8.3 fL 6.2-10 .5 normal Not Available [facility] [address] [place] [address], [address], 03/30/2018 12:03:10 03/30/20 18 03/30/2018 CBC w/ auto diff platelet count 257 K/uL 130-40 0 normal Not Available [facility] [address] [place] [address], [address], 03/30/2018 12:03:10 03/30/20 18 03/30/2018 CBC w/ auto diff neutrophil,a bsolute 5.7 K/uL 1.6-8. 4 normal Not Available [facility] [address] [place] [address], [address], 03/30/2018 12:03:10 03/30/20 18 03/30/2018 CBC w/ auto diff lymphocyte,a bsolute 1.9 K/uL 0.4-5. 1 normal Not Available [facility] [address] [place] [address], [address], 03/30/2018 12:03:10 03/30/20 18 03/30/2018 CBC w/ auto diff monocyte,abs olute 0.5 K/uL 0.0-1. 2 normal Not Available [facility] [address] [place] [address], [address], 03/30/2018 12:03:10 03/30/20 18 03/30/2018 CBC w/ auto diff eosinophil,a bsolute 0.1 K/uL 0.0-0. 8 normal Not Available [facility] [address] [place] [address], [address], 03/30/2018 12:03:10 03/30/20 18 03/30/2018 CBC w/ auto diff basophil,abs olute 0.1 K/uL 0.0-0. 3 normal Not Available [facility] [address] [place] [address], [address], 03/30/2018 12:03:10 03/30/20 18 03/30/2018 CBC w/ auto diff % neutrophils 69.0 % 42.0-7 8.0 normal Not Available [facility] [address] [place] [address], [address], 03/30/2018 12:03:10 03/30/20 18 03/30/2018 CBC w/ auto diff % lymphocytes 23.2 % 11.0-4 7.0 normal Not Available [facility] [address] [place] [address], [address], 03/30/2018 12:03:10 03/30/20 18 03/30/2018 CBC w/ auto diff % monocytes 5.6 % 0.0-11 .0 normal Not Available [facility] [address] [place] [address], [address], 03/30/2018 12:03:10 03/30/20 18 03/30/2018 CBC w/ auto diff % eosinophils 1.3 % 0.0-7. 0 normal Not Available [facility] [address] [place] [address], [address], 03/30/2018 12:03:10 03/30/20 18 03/30/2018 CBC w/ auto diff % basophils 0.9 % 0.0-3. 0 normal Not Available [facility] [address] [place] [address], [address], 03/30/2018 12:03:10 03/30/20 18 03/30/2018 CBC w/ auto diff nucleated red cells 0.1 % 0.0-0. 9 normal Not Available [facility] [address] [place] [address], [address], 03/30/2018 12:03:10 03/30/20 18 03/30/2018 CBC w/ auto diff nucleated RBCs, absolute 0.01 K/uL not estab. normal Not Available [facility] [address] [place] [address], [address], 03/30/2018 12:03:10 03/30/20 18 03/30/2018 CMP, serum or plasm a glucose 87 mg/dL 74-100 normal Not Available [facility] [address] [place] [address], [address], 03/30/2018 12:16:12 03/30/20 18 03/30/2018 CMP, serum or plasm a blood urea nitrogen 10 mg/dL 6-20 normal Not Available [facility] [address] [place] [address], [address], 03/30/2018 12:16:12 03/30/20 18 03/30/2018 CMP, serum or plasm a creatinine 0.70 mg/dL 0.50-0 .95 normal Not Available [facility] [address] [place] [address], [address], 03/30/2018 12:16:12 03/30/20 18 03/30/2018 CMP, serum or plasm a BUN/creatini ne ratio 14 (calc ) 10-20 normal Not Available [facility] [address] [place] [address], [address], 03/30/2018 12:16:12 03/30/20 18 03/30/2018 CMP, serum or plasm a sodium 142 mmol/ L 136-14 5 normal Not Available [facility] [address] [place] [address], [address], 03/30/2018 12:16:12 03/30/20 18 03/30/2018 CMP, serum or plasm a potassium 4.1 mmol/ L 3.4-5. 0 normal Not Available [facility] [address] [place] [address], [address], 03/30/2018 12:16:12 03/30/20 18 03/30/2018 CMP, serum or plasm a chloride 101 mmol/ L 98-107 normal Not Available [facility] [address] [place] [address], [address], 03/30/2018 12:16:12 03/30/20 18 03/30/2018 CMP, serum or plasm a carbon dioxide 28 mmol/ L 20-32 normal Not Available [facility] [address] [place] [address], [address], 03/30/2018 12:16:12 03/30/20 18 03/30/2018 CMP, serum or plasm a anion gap 13 (calc ) 7-25 normal Not Available [facility] [address] [place] [address], [address], 03/30/2018 12:16:12 03/30/20 18 03/30/2018 CMP, serum or plasm a calcium 9.6 mg/dL 8.6-10 .2 normal Not Available [facility] [address] [place] [address], [address], 03/30/2018 12:16:12 03/30/20 18 03/30/2018 CMP, serum or plasm a total protein 7.3 g/dL 6.4-8. 3 normal Not Available [facility] [address] [place] [address], [address], 03/30/2018 12:16:12 03/30/20 18 03/30/2018 CMP, serum or plasm a albumin 4.4 g/dL 3.5-5. 2 normal Not Available [facility] [address] [place] [address], [address], 03/30/2018 12:16:12 03/30/20 18 03/30/2018 CMP, serum or plasm a globulin 2.9 g/dL_ (calc ) 1.5-4. 5 normal Not Available [facility] [address] [place] [address], [address], 03/30/2018 12:16:12 03/30/20 18 03/30/2018 CMP, serum or plasm a albumin/glob ulin ratio 1.5 (calc ) 1.1-2. 5 normal Not Available [facility] [address] [place] [address], [address], 03/30/2018 12:16:12 03/30/20 18 03/30/2018 CMP, serum or plasm a bilirubin, total 0.5 mg/dL 0.1-1. 2 normal Not Available [facility] [address] [place], [address], 03/30/2018 12:16:12 03/30/20 18 03/30/2018 CMP, serum or plasm a alkaline phosphatase 120 U/L 35-105 high Not Available [facility] [address] [place], [address], 03/30/2018 12:16:12 03/30/20 18 03/30/2018 CMP, serum or plasm a AST 43 U/L 0-32 high Not Available [facility] [address] [place] [address], [address], 03/30/2018 12:16:12 03/30/20 18 03/30/2018 CMP, serum or plasm a ALT 57 U/L 0-33 high Not Available [facility] [address] [place], [address], 03/30/2018 12:16:12 03/30/20 18 03/30/2018 CMP, serum or plasm a GFR 112 >= 60 normal Not Available [facility] [address] [place], [address], 03/30/2018 12:16:12 03/30/20 18 03/30/2018 CMP, serum or plasm a GFR non- 96 >= 60 normal NOT E Calcu latio n for GFR is based on the Natio nal Kidne y Found ation CKD-E PI equat ion and allow s for repor ting GFR value s great er than 60 mL/mi n/1.7 3 m2. This calcu latio n has not been valid ated for patie nts less than 18 yrs., pregn ant women and Hispa nics. Chron ic kidne y disea se is defin ed as kidne y damag e or GFR less than 60 mL/mi n/1.7 3 m2 for 3 month s or longe r. . Not Available [facility] [address] [place] [address], [address], 03/30/2018 12:16:12 03/30/20 18 03/30/2018 vitam in B12, serum vitamin B12 217 pg/mL 232-12 45 low Not Available [facility] [address] [place] [address], [address], 03/30/2018 12:32:13 03/30/20 18 03/30/2018 vitam in D, 25-hy droxy , total , serum vitamin D 25-oh, total 28 NG/mL >=30 NG/mL abnormal Not Available [facility] [address] [place] [address], [address], 03/30/2018 12:32:34 04/10/20 18 04/06/2018 MRI, brain , w/wo contr ast No observ ation record ed. [email or web address] [facility] [address] [place] [address], [phone], 04/20/2018 13:11:20 05/01/20 18 05/13/2014 elect roenc ephal ogram (EEG) ; inclu ding recor ding awake and drows y (PROC ) No observ ation record ed. [email or web address] Not Available 2017 10:10:44 05/03/20 18 05/03/2018 CT, head, w/wo contr ast [facility] [address] [place] [address] [place] [address] Patien t Name: GIL Yusuf : [address] [facility] Provid er: SHENA MENDOZA SON EXAM DATE: 2017 EXAM: CT HEAD W/WO CONTRA ST HISTOR Y: Multip le sclero sis. COMPAR DEANGELO: Outsid e MRI 018 FINDIN GS: The ventri cles are symmet william, and normal in size.. There is no mass, mass effect , or midlin e shift. MS plaque lesion s noted on the outsid e study are much less apprec iable on CT as expect ed. There are severa l subtle areas of vague low densit y in the perive ntricu lar deep white matter . The outsid e exam also noted a puncta te area of bright signal in the counter waitress/waiter ior left pariet al lobe. There is no corres pondin g CT findin g. There is no abnorm al extra- axial fluid, acute intrac ranial hemorr kalani, or CT eviden ce of infarc tion. After intrav enous admini strati on of 100 cc Isovue -300 ([facility] 0270-1 315-35 ), there is no abnorm al enhanc ement in the brain. The calvar ium and visual ized facial bones are normal in appear ance. There is no fractu re. The visual ized parana pradeep sinuse s and mastoi d air cells are normal . IMPRES [place]: 1. Vague low-de nsity change s in the perive ntricu lar deep white matter compat ible with no new mass. No abnorm al enhanc ement. No indica tion of vascul ar malfor mation . Interp reted By: Jorge Luis Mcmillan MD Electr onical ly Signed By: Jorge Luis Mcmillan MD on 018 3:19 PM [facility] [address], [address], 05/04/2018 09:31:50 05/09/20 18 05/03/2018 CT, angio gram, head, w/ contr ast [address] [place] [address] Patijuanito t Name: GIL Yusuf : [address] Andraei israel Connelly er: SHENA MENDOZA SON EXAM DATE: 2017 EXAM: CT ANGIO HEAD [place] [facility] [place] [facility] AL INFORM ATION: Possib le aneury sm on outsid e MRI. TECHNI QUE: Multip le axial CT images of the head were obtain ed after inject ion of Isovue 300, 100 ml (1 x 100 ml bottle s of [facility] 0270-1 315-35 ) [address] angiog jeanette projec tions were obtain ed [facility]. COMPAR DEANGELO: Outsid e MRI 018. CT 018. FINDIN GS: RIGHT INTRAC RANIAL BRANCH ES: Intrap etrosa l, intrac averno us and suprac linoid portio ns of the Right ICA are patent , normal in calibe r and course and show no plaque , stenos is or aneury sm. Right SHELLIE, MCA, and anteri or and counter waitress/waiter ior commun icatin g arteri es and their branch es are patent , normal in calibe r and course and show no stenos is or aneury sm. Basila r artery and its branch es are normal . LEFT INTRAC RANIAL BRANCH ES: Intrap etrosa l, intrac averno us and suprac linoid portio ns of the Left ICA are patent , normal in calibe r and course and show no plaque , stenos is or aneury sm. Left SHELLIE, MCA, and anteri or and counter waitress/waiter ior commun icatin g arteri es and their branch es are patent , normal in calibe r and course and show no stenos is or aneury sm. Basila r artery and its branch es are normal . [place] : [place] is patent , balanc ed, normal in calibe r and course and show no plaque , stenos is or aneury sm. IMPRES [place]: 1. Normal CT angiog jeanette of the head. No eviden ce of aneury sm is seen. 2. In the left pariet o-occi pital area in questi on descri bed on the outsid e MRI report , no calcif icatio n or vascul ar abnorm ality is seen. In fact that no lesion is not visual ized on CT. Interp reted By: Monroe Snell MD Electr onical ly Signed By: Monroe Snell MD on 018 9:00 AM oumar [facility] [address], [address], 05/12/2018 10:53:46 Result Notes Documentation Provider Name and Address Organization Details Recorded Time Ct, Head, W/wo Contrast : [place] [address] [place] [address] Patient Name: LUCILLE EDEN Patient : 1960 Patient Ordering Provider: SHENA DENISE EXAM DATE: 05/03/2018 EXAM: CT HEAD W/WO CONTRAST HISTORY: Multiple sclerosis. COMPARISON: Outside MRI 04/06/2018 FINDINGS: The ventricles are symmetric, and normal in size.. There is no mass, mass effect, or midline shift. MS plaque lesions noted on the outside study are much less appreciable on CT as expected. There are several subtle areas of vague low density in the periventricular deep white matter. The outside exam also noted a punctate area of bright signal in the posterior left parietal lobe. There is no corresponding CT finding. There is no abnormal extra-axial fluid, acute intracranial hemorrhage, or CT evidence of infarction. After intravenous administration of 100 cc Isovue-300 ([facility] 9595-7811-02), there is no abnormal enhancement in the brain. The calvarium and visualized facial bones are normal in appearance. There is no fracture. The visualized paranasal sinuses and mastoid air cells are normal. IMPRESSION: 1. Vague low-density changes in the periventricular deep white matter compatible with no new mass. No abnormal enhancement. No indication of vascular malformation. Interpreted By: Jorge Luis Mcmillan MD Renae Martinez [facility] 05/04/2018 09:31:50 Ct, Angiogram, Head, W/ Contrast : [place] [address] Patient Name: LUCILLE EDEN Patient : 1960 Patient Ordering Provider: SHENA DENISE EXAM DATE: 05/03/2018 EXAM: CT ANGIO HEAD [place] [facility] [place] [facility] INFORMATION: Possible aneurysm on outside MRI. TECHNIQUE: Multiple axial CT images of the head were obtained after injection of Isovue 300, 100 ml (1 x 100 ml bottles of NDC 2332-6158-68) IV. CT angiography projections were obtained on a 3D workstation. COMPARISON: Outside MRI 04/06/2018. CT 05/03/2018. FINDINGS: RIGHT INTRACRANIAL BRANCHES: Intrapetrosal, intracavernous and supraclinoid portions of the Right ICA are patent, normal in caliber and course and show no plaque, stenosis or aneurysm. Right SHELLIE, MCA, and anterior and posterior communicating arteries and their branches are patent, normal in caliber and course and show no stenosis or aneurysm. Basilar artery and its branches are normal. LEFT INTRACRANIAL BRANCHES: Intrapetrosal, intracavernous and supraclinoid portions of the Left ICA are patent, normal in caliber and course and show no plaque, stenosis or aneurysm. Left SHELLIE, MCA, and anterior and posterior communicating arteries and their branches are patent, normal in caliber and course and show no stenosis or aneurysm. Basilar artery and its branches are normal. [place]: [place] is patent, balanced, normal in caliber and course and show no plaque, stenosis or aneurysm. IMPRESSION: 1. Normal CT angiography of the head. No evidence of aneurysm is seen. 2. In the left parieto-occipital area in question described on the outside MRI report, no calcification or vascular abnormality is seen. In fact that no lesion is not visualized on CT. Interpreted By: Cordell Snell MD [facility] 05/12/2018 10:53:46 Problems No Known Problems Procedures Surgical History Date Name Laterality Status Provider Name and Address Organization Details Recorded Time Breast Surgery completed Ellyn Giron [facility] 03/30/2018 08:47:11 Imaging Results None recorded. Procedure Notes None recorded. Medical Equipment None Reported. Allergies Allergen ID Allergen Name Allergen Category Reaction Reaction Severity Criticality Documentation Date Start Date Code Code System Note Provider Name and Address Organization Details Recorded Time 402275 codeine medicatio n Not available Not available Not available 07/09/20162011 2670 RxNorm Comme nt: Creat ed By: Gamal harris Date: 12:48 :17 PM; Not Available [facility] 6 05:56:43 [id number] Biaxin medicatio n Not available Not available Not available 07/09/20162011 76073 9 RxNorm Comme nt: Creat ed By: Gamal harris Date: 12:49 :34 PM; Not Available [facility] 6 05:56:43 720397 Product containin g penicilli n (product) medicatio n Not available Not available Not available 07/09/20162011 70001 8001 SNOMED Comme nt: Creat ed By: Gamal harris Date: 12:48 :52 PM; Not Available [facility] 6 10:25:26 [id number] E-Mycin medicatio n Not available Not available Not available 07/09/20162011 25939 8 RxNorm Comme nt: Creat ed By: Gamal harris Date: 12:49 :16 PM; Not Available [facility] 6 10:25:26 Medications Name Sig Start Date Stop Date Status Note LastModified by Organization Details LastModified Time meloxicam 15 mg tablet Daily 03/30 completed Frequenc y: daily;Me dication Descript ion: meloxica m; Dosage:1 ; Route:or al; refills: 0 Not Available Not Available Not Available venlafaxi ne ER 150 mg capsule,e xtended release 24 hr 03/30 completed Duration : 30 days;Ins truction s: TAKE ONE CAPSULE BY MOUTH ONCE DAILY;Me dication Descript ion: venlafax ine; Route:or al; refills: 6; Quantity :30 capsule, extended release Not Available Not Available Not Available baclofen 20 mg tablet Three times a day 03/30 completed Duration : 30 days;Antoni quency: tid;Alt Frequenc y: prn pain;Med ication Descript ion: baclofen ; Dosage:1 /2-1; Route:or al; refills: 6; Quantity :90 tablet Not Available Not Available Not Available modafinil 200 mg tablet Every morning 03/30 completed Duration : 30 days;Antoni quency: qam;Medi cation Descript ion: modafini l; Dosage:1 /2-1; Route:or al; refills: 5; Quantity :30 tablet Not Available Not Available Not Available Lamictal 100 mg tablet after completi ng orange starter kit, begin 1 tab qam and 1/2 tab qhs x 1 week, then 1 tab bid 2017 active Not Available Not Available Not Avai lable Vitamin D2 1,250 mcg (50,000 unit) capsule Take 1 capsule every week by oral route. 2017 active Not Available Not Available Not Avai lable propranol ol 20 mg tablet Daily 03/30 completed Frequenc y: daily;Me dication Descript ion: proprano lol; Dosage:1 ; Route:or al; refills: 0 Not Available Not Available Not Available fluoxetin e 20 mg capsule Take 1 capsule every day by oral route. active Not Available Not Available No t Available Lamictal Starter ([facility]) Kit 25 mg (42)-100 mg (7) tablets, dose pack 1 kit per package instruct ion 2017 active Not Available Not Available Not Avai lable Nuvigil 150 mg tablet 03/30 completed Duration : 30 days;Ins truction s: TAKE ONE TABLET BY MOUTH IN THE MORNING; Medicati on Descript ion: armodafi nil; Route:or al; refills: 5; Quantity :30 tablet Not Available Not Available Not Available Tecfidera 120 mg (14)-240 mg (46) capsule,d elayed release per package instruct ions 2017 active Not Available Not Available Not Avai lable Tecfidera 240 mg capsule,d elayed release Two times a day 2017 active Not Available Not Available Not Avai lable Vitals Date Recorded Body height Body mass index (BMI) Body weight Heart rate Systolic And Diastolic Provider Name and Address Organization Details Last Updated DateTime 03/30/2018 163.83 cm 23.2 kg/m2 55191.55 g 66 /min 100/63 mm[Hg] Beth Mccullough [facility] 8 09:05:31 Date Recorded Body height Body mass index (BMI) Body weight Heart rate Systolic And Diastolic Provider Name and Address Organization Details Last Updated DateTime 04/27/2018 163.83 cm 23.2 kg/m2 36432.85 g 66 /min 120/78 mm[Hg] Nayla Winters [facility] 8 14:21:29 Social History Question Answer Notes LastModified by Organizat ion Details LastModified Time Tobacco Smoking Status Current Every Day Smoker Ellyn Giron [facility] 03/30/2018 08:45:15 What Was The Date Of Your Most Recent Tobacco Screening? 04/27/2018 Information n ot available 10/02/2019 Sex: Unknown Functional Status None recorded. Mental Status None recorded. Family History Relationship Description Onset Age of this Age Resolved Age Notes LastModified by Organization Details LastModified Time Father Family history of malignant neoplasm [email or web address] Not available 2017 08:45:07 Medical History Condition Response Depression Y Gynecological HistoryNo gynecological history recorded. Obstetrics History GPAL:G 0 P 0 0 0 0 Past Encounters Encounter ID Performer Location Encounter Start Date Encounter Closed Date Diagnosis/Indication Diagnosis SNOMED-CT Code Diagnosis ICD10 Code Diagnosis IMO Codes Diagnosis Note [id number] SHENA DENISE MD NEUROLOGY [facility] [address] [facility] [place] [address] 03/30/2018 08:31:27 03/30/2018 11:23:06 Relapsing remitting multiple sclerosis [id number] G35 57 year-old woman with RRMS diagnosed in 11/2011 but probable onset in 2006 when MRI revealed white matter disease. She also has PMH breast cancer s/p chemoradia tion 2001, migraine headaches. She was on Copaxone from 01/2012 with side effects of injection site reaction, then switched to Tecfidera from 05/2013. She has not been on treatment since due to lost insurance. She has not been on treatment since 2013. Most recent new sx of vision loss in R eye in January 2018. Eye exam per optometrst at time of onset was unrevealin g for optic neuritis. Also having hallucinat ions, disorienta tion, dx as seizure by EEG. No benefit from Keppra or phenobarbi darcy. - repeat MRI brain w/wo - will obtain visual evoked potentials - will get her started back on Tecfidera -- will apply for assistance -- check CBC and CMP, B12 and vitamin D Visual hallucinations 64 981552 R44.1 dx as seizure with concommita nt disorienta tion, confusion and preceded by an aura of a sensation running from head down her entire body; occuring a couple times per week; agree, this is likely seizure - will request the EEG report Fatigue 44770694 R53.83 fatigue in MS; could sleep all day - resume CPAP (see below) for CODI - checking B12 and vitamin D - may consider stimulant; no insurance coverage for medication s - get good 8 hours of sleep - self tx with caffeine - begin MVI daily Focal onse t impaired awareness epileptic seizure 235208920 G40.209 hallucinat ions -- see above occuring twice a week I've advised that she is not to drive until these have been controlled for 3 months because she could become confused and cause an accident will give a trial of Lamictal - request EEG from Dr. Arita Obstructiv e sleep apnea syndrome 51486635 G47.33 not on CPAP due to no benefit and reports indicating she was not using it when she was - she is to go back to leah conway MD and report this above, request of a new mask and get on CPAP I spent well over an hour with patient with greater than 50% in counselein g regarding diagnosis, management , medication s and importance of health maintenanc e (exericse, diet, tx of cholestero l, vacular risks, thyroid checks, etc) [id number] SHENA DENISE MD NEUROLOGY [facility] [address] [facility] [place] [address] 04/27/2018 13:48:47 04/27/2018 16:12:05 Relapsing remitting multiple sclerosis 814015490 G35 57 year-old [place] woman with RRMS diagnosed in 11/2011 but probable onset in 2006 when MRI revealed white matter disease. She also has PMH breast cancer s/p chemoradia tion 2001, migraine headaches. She was on Copaxone from 01/2012 with side effects of injection site reaction, then switched to Tecfidera from 05/2013. She has not been on treatment since due to lost insurance. She has not been on treatment since 2013. Most recent new sx of vision loss in R eye in January 2018. Eye exam per optometris t at time of onset was unrevealin g for optic neuritis. Also having hallucinat ions, disorienta tion, dx as seizure by EEG. No benefit from Keppra or phenobarbi darcy. - will obtain CT head and CTA to see if the L parietal lesion is a bleed check for aneuysm; this may explain the seizures. - reminded her to have the visual evoked potentials performed - will get her started back on Tecfidera -- will apply for assistance - continue vit D, start B12 and continue MVI daily - counseled on the importance of smoking cessation as MS progresses more aggressive ly in smokers Visual hallucinations 64 062379 R44.1 dx as seizure with concommita nt disorienta tion, confusion and preceded by an aura of a sensation running from head down her entire body; occuring a couple times per week; agree, this is likely seizure - will request the EEG report Fatigue 77345603 R53.83 fatigue in MS; could sleep all day - again counseled on the importance of CPAP, get a new mask and resume CPAP (see below) for CODI - checking B12 and vitamin D - may consider stimulant; no insurance coverage for medication s - get good 8 hours of sleep - self tx with caffeine - begin MVI daily Focal onse t impaired awareness epileptic seizure [id number] G40.209 hallucinat ions -- see above occuring twice a week I've advised that she is not to drive until these have been controlled for 3 months because she could become confused and cause an accident will give a trial of Lamictal - request again request EEG from Dr. Marshall Obstructiv e sleep apnea syndrome 53680472 G47.33 not on CPAP due to no benefit and reports indicating she was not using it when she was - reminded: she is to go back to leah conway MD and report this above, request of a new mask and get back on CPAP I spent well over an 45 minutes with Lucille and her boyfriend David with greater than 50% in counseling regarding diagnosis, management , medication s and importance of health maintenanc e (exercise, diet, tx of cholestero l, vascular risks, thyroid checks, etc) MRI scan abnormal 146772 003 R93.8 MS but also the lesion in the L parietal lobe - see above Health Concerns Section Related Observation LastModified by Organization Detai ls LastModified Time None Recorded Concern Status LastModified by Organization Details LastModified Time None Recorded Advance Directives Directive None Recorded Payers Insurance Date Sequence Insurance Name Policy Number Policy Lowe Covered Member ID Lowe Member ID Guarantor Name 07/09/2020 1 [place] Lucille Hernández [id number] Lucille Hernández Notes Date Note Type Note Provider Name and Address Organization Details Recorded Time 03/30/2018 text/html Ms. Lucille Eden is a 57 year-old right-handed woman presenting in consultation for multiple sclerosis at the request of Dr. Brodie Marshall. She was diagnosed with MS in spring 2011 when enhancing lesions were found on MRI and CSF showed oligoclonal bands not present in serum. She was started initially on Copaxone in 01/2012 but due to injection site reactions she switched to Tecfidera in 05/2013. She lost insurance coverage and was lost to follow-up of MS sometime in 2013 or 2014 and has been off of MS drugs since then. Her last MRI was in January 2014 which appeared stable from the 2012 image. Her symptoms of MS (see problem list below) remained stable until this January. Her most recent symptoms of MS are loss of vision in her right eye that occurred in January 2018 while at work and lasted for about an hour or longer, cleared up by the time she made it to the ER. She recalls initial symptoms in July 2011 when she developed weakness in her right hand and numbness in her right foot. Within a few days she began to notice she was dragging her right foot and not long before the numbness spread all the way up to her knee. Symptoms persist and in August she underwent MRI brain which showed some enhancing lesions. She has a PMH of breast cancer s/p chemoradiation and lumpectomy in 2001 and the lesions were initially concerning for possible tumor versus demyelinating disease. She also has PMH of migraine that began at age 21 and she had an MRI of the brain in 2006 that showed some WM lesions. She was referred to Dr. Tapia who repeated the MRI with contrast but no enhancement was seen and since she had no neurological signs or symptoms other than migraines, he thought they were due to migraines. Again, she denies prior to July of ever having focal numbness, tingling, weakness, vertigo, loss of vision, tremors. She works at [employer] in the [employer] and prefers the cold environment to work but has not noticed that her symptoms are worse in the heat. Lhermitte's sign is negative. She has not undergone LP. There is no FH of MS. 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 Her only medication at this time is fluoxetine. She is not on any vitamins or supplements. She has CODI was on CPAP everynight but the reports said she wasn't using it, so she stopped using it. PROBLEM LIST: 1. paresthesias BUE/BLE - these come and go 2. RUE hand (dropping), BLE weakness, worse on right and she drags her right foot 3. fatigue - ungodly ; she could sleep 24h and still be tired; she gets 7-8 hours of good sleep each night - she has never tried medication for this; Rx previously given for Nuvigil but not covered by insurance; she just has medicare and no medication coverage policy - she used to be on B12 injections, but hasn't needed them based on her level for about a year 4. depression and irritability - on fluoxetine for about 6 months, better with it than w/o but not sure how much it helps - previous trials of Effexor (too expensive) and citalopram 20 made her very tired 5. cognitive issues, disorientation, memory lapses, poor short term memory 6. Symptoms worse in the heat 7. urinary incontinence, this is not as bad as it used to be; now intermittent and may last a day, then over 8. Dizziness/light-head edness, pressure like feeling in her head is expanding, gets nauseated - used to be more frequent, now about once of twice a month, lasting 30 seconds or so 9. migraine - none in a long time and no longer on prevention/propranol ol, stopped about 2 months ago; no problems with BP; 10. Hallucinations: frequent and horrible; told it may be seizures; EEG showed seizures - sees people; she can tell when she is going to have one, feeling of blood rushing to her head, starts on top of head and goes down throught her entire body, she gets disoriented, does not know who she is, where she is and then will see people and is lost and confused; lasts just a minute or 2. 11. Seizures -- occuring about twice a week; dx by EEG, as above for hallucinations/conuf alexandria, disorientation. These occur with or without the seizure medication so she stopped it; Tried Keppra and phenobarbital. These started in March 2013. She is still driving and had driven during one, can remember driving but [place] at the airport. It only happened once while driving. She did not become reckless. 12. Optic neuritis, probable R eye, 01/2018 with loss of vision lasting about an hour. Previous vision in right eye decreased. 13. Pain - in both legs in the calves> thighs, feels like she wants to cut them off. Tried baclofen and it did not help. Now takes ibuprofen 800 mg before bedtime, takes about twice a week and it helps. SHENA DENISE MD [address] [place], [address], [facility] 03/30/2018 10:46:05 04/27/2018 text/html f/u MS She is accompanied by her boyfriend David who assists with history. Lucille had recent MRI brain and she brings the disc wth her today. She has not yet had visual evoked potentials. She stopped Copaxone forever because of injection site reactions and David says that half of the time, the fluid would come right back out of her muscle. She is a smoker and she drinks energy drinks. No alcohol. She is taking vitamins now, a MVI and vit D2 weekly and vit D3 daily, she doesn't know the dose. She will see Dr. Marshall next week and will start her injections for B12. She has not had any of the visual hallucinations seizures since she stopped phenobarbital. They are not sure when she started having these, but going back 4 or 5 years or so. David says that he is not making fun of Lucille but he says she is pretty simple. They have been together for 30 years and it's nothing that has changed, she has always been. She is not dumb, but she doesn't think. He doesn't see that anything has changed other than she was having those seizures. She hasn't had any hallucinations for a long time. She can't remember. She has elevated LFTs and she had U/S liver this morning. She is still working at [employer]. She says that she is having memory problems, David does notice that here of late she doesn't remember things. Stlll not using her CPAP, needs a new mask. PROBLEM LIST: 1. paresthesias BUE/BLE - these come and go 2. RUE hand (dropping), BLE weakness, worse on right and she drags her right foot 3. fatigue - ungodly ; she could sleep 24h and still be tired; she gets 7-8 hours of good sleep each night - she has never tried medication for this; Rx previously given for Nuvigil but not covered by insurance; she just has medicare and no medication coverage policy - she used to be on B12 injections, but hasn't needed them based on her level for about a year 4. depression and irritability - still on fluoxetine for about 7 months, better with it than w/o but not sure how much it helps - previous trials of Effexor (too expensive) and citalopram 20 made her very tired 5. cognitive issues, disorientation, memory lapses, poor short term memory 6. Symptoms worse in the heat 7. urinary incontinence, this is not as bad as it used to be; now intermittent and may last a day, then over 8. Dizziness/light-head edness, pressure like feeling in her head is expanding, gets nauseated - used to be more frequent, now about once of twice a month, lasting 30 seconds or so 9. migraine - none in a long time and no longer on prevention/propranol ol, stopped about 2 months ago; no problems with BP; 10. Hallucinations: frequent and horrible; told it may be seizures; EEG showed seizures - sees people; she can tell when she is going to have one, feeling of blood rushing to her head, starts on top of head and goes down throught her entire body, she gets disoriented, does not know who she is, where she is and then will see people and is lost and confused; lasts just a minute or 2. 11. Seizures -- occuring about twice a week; dx by EEG, as above for hallucinations/confu alexandria, disorientation. These occur with or without the seizure medication so she stopped it; Tried Keppra and phenobarbital. These started in March 2013. She is still driving and had driven during when she was having seizures, can remember driving but ended up at the airport. It only happened once while driving. She did not become reckless. 12. Optic neuritis, probable R eye, 01/2018 with loss of vision lasting about an hour. Previous vision in right eye decreased. This has not recurred. 13. Pain - in both legs in the calves> thighs, feels like she wants to cut them off. Tried baclofen and it did not help. Now takes ibuprofen 800 mg before bedtime, takes about one per week. SHENA DENISE MD [address] [place], [address], [facility] 04/27/2018 15:48:36 OBGyn Episode No OBEpisode recorded.
--- OUTSIDE RECORDS SUMMARY | 2025-06-20 14:35 | XMS_ITS | Clinical Summary ---
Author Organization [facility] Address [facility] [place] [address] Care Team Providers Care Photographer Still Name Role Phone Unavailable Primary Care Provider [...] therelease of HIV test results or diagnoses. [id number] Social History Tobacco Use Types Packs/Day Years Used Date Smoking Tobacco: Never Assessed Comments Unknown Sex and Gender Information Value Date Recorded Sex Assigned at Not on file Legal Sex Female 9:26 AM EDT Gender Identity Not on file Sexual Orientation Not on file Plan of Treatment Not on file
--- OUTSIDE RECORDS SUMMARY | 2025-06-20 14:35 | XMS_ITS | Encounter Summary ---
Author Organization Healthcare Address [address] [place] [address] Care Team Providers Care Bag Shop Worker Name Role Phone Mickey Maldonado MD Primary Care Provider Leonila Roy MD Unavailable + [phone] Encounter Details Date Type Department Care Team (Late st Contact Info) Description 03/22/2025 Telephone [place] [facility] [address] [place] [address] Leonila Doe MD [address] [place] [address] Social History Tobacco Use Types [...] optimal time of day to reach caller: [phone] Note: Please do not reply to this [...] Visit [place] [facility] [address] [place] [address] Leonila Doe MD [address] [place] [address] documented as of this encounter [...] documented as of this encounter Care Teams Bag Shop Worker Relationship Specialty Start Date End Date Mickey Maldonado MD PCP - General Family Medicine 06/24/23 Leonila Doe MD [address] [place] [address] Consulting Physician Neurology 06/24/23 documented as of this encounter
--- OUTSIDE RECORDS SUMMARY | 2025-06-20 14:35 | XMS_ITS | Encounter Summary ---
Author Organization Healthcare Address [address] [place] [address] Care Team Providers Care Funding Specialist Name Role Phone Mickey Maldonado MD Primary Care Provider Leonila Roy MD Unavailable + [phone] Encounter Details Date Type Department Care Team (Late Contact Info) Description 07/24/2024 Orders Only External Location [address] [place] [address] Provider, External Social History Tobacco Use Types [...] [place] [facility] [address] [place] [address] Leonila Doe MD [address] [place] [address] documented as of this encounter Procedures Procedure [...] documented as of this encounter Care Teams Funding Specialist Relationship Specialty Start Date End Date Mickey Maldonado MD PCP - General Family Medicine 06/24/23 Leonila Doe MD [address] [facility] [address] [place] [address] Consulting Physician Neurology 06/24/23 documented as of this encounter
--- NOTE | 2025-06-20 15:00 | CT_ITS ---
FINAL REPORT TECHNIQUE: Thin section axial images were obtained from the lung apices to the upper abdomen by computed tomography. Reformatted images were obtained and reviewed. This study was performed with techniques to keep radiation doses al low as reasonably achievable (ALARA). Individualized dose reduction techniques using automated exposure control or adjustment of mA and/or kV according to the patient's size were employed. CLINICAL HISTORY: lung cancer screening 1 ppd x 40 years COMPARISON: 07/24/2024 FINDINGS: CHEST CT LOW DOSE 64-year-old male, current smoker, 35-xbst-jvew history. CTDI vol (mGy): 2.90 DLP (mGy-cm): 108.12 There is no axillary adenopathy. Surgical clips are present in the right axilla. There is no mediastinal or hilar mass or adenopathy. The heart is normal in size. There is no pericardial or pleural effusion. Pleural and parenchymal scarring is present in the right lung base. There are healed fracture deformities of the right ribs. Lung window images demonstrate there is an irregular, spiculated nodule in the medial and superior segment of the right lower lobe measuring 8 x 6 mm, best seen on image 32 of series 4. This is new since the prior exam of 07/24/2024, and worrisome for neoplasm. Limited images of the upper abdomen are unremarkable. IMPRESSION: Irregular spiculated nodule in the medial and superior segment of the right lower lobe, 8 x 6 mm as described. This is new since the prior CT of 07/24/2024, and is worrisome for neoplasm. This nodule is in a location that would be difficult to sample percutaneously. Lung-RADS category 4B. Recommend PET/CT or follow-up CT in 1 month follow up low dose chest CT. Reviewed, Interpreted and Dictated by Darrell Jansen MD Transcribed by Radha Torres Authenticated and [facility]
== END 2025-06-20 23:59 | disposition home or self-care (01) ==
LOC: RAD 14:33
PROVIDERS: PCP Family Medicine; Visit Provider Nurse Practitioner Family
DX: Z12.2 Encounter for screening for malignant neoplasm of respiratory organs (principal); F17.210 Nicotine dependence, cigarettes, uncomplicated; R91.1 Solitary pulmonary nodule
CPT/HCPCS: 71271

== ENCOUNTER 2025-06-26 11:55 | Day surgery (SDC) | payer MEDICARE, SELFPAY ==
--- NOTE | 2025-06-23 11:49 | EXP.HP ---
History of Present Illness *Admission Date: 06/26/25 *History of present illness: Mrs. Hernández is a 64-year-old female who is here for diagnostic EGD. Over the last several months the patient has been struggling with dysphagia and reports choking on food and food getting hung up when she swallows. She will sometimes have to regurgitate. She will also sometimes get globus sensation when she is not eating. She has lost almost 20 pounds since the beginning of the summer. Her maternal aunt had throat cancer in her 60s. The examination is deemed medically necessary for diagnostic EGD. The patient has been seen, interviewed and examined prior to the procedure by both myself and the anesthesia provider. [facility] Disclaimer: The information contained in this section may have been updated after the patient was seen, as this information can be updated by other users. Medical History Abdominal bloating Weight loss, anorexia, bloating Unintentional weight loss Headache Asymptomatic Chronic otitis media with serous effusion Tinnitus Hearing loss in left ear Generalized anxiety disorder Recurrent major depression resistant to treatment Seizures Precipitated by blood harrell, described as alteration in awareness, confusion, hallucinations in the setting of abnormal EEG, brain MRI. Currently asymptomatic since sometime in 2021. No evidence of epileptic etiology. Multiple sclerosis Relapsing remitting MS diagnosed 11/2011 with probable onset 2006. Abnormal MRI, LP with OCPs greater than 5 present in CSF not serum, clinical presentation. Prior evaluation by Dr. Shine Tapia and Poly Aguirre. Currently on IV ublituximab every 6 months. Vitamin B12 deficiency Breast cancer SOB (shortness of breath) CODI (obstructive sleep apnea) Tobacco abuse Half a pack per day Chest pain Surgical History History of tonsillectomy H/O lumpectomy Family History Father Cancer Grandfather , paternal FHx: mental illness completed suicide by drowning. -he was sick; had been complaining of side pain -they sent him to [facility] for a while -the day of discharge he completed suicide Social History Smoking Status: Current every day smoker tobacco type: cigarettes second hand exposure: No alcohol intake: never counseling given: No substance use type: denies use counseling given: No current occupational status: employed and other details: works at [employer] in the last 8 weeks?: None adopted: No caregiver/support person: No foster care: No household members: none housing: other details: mobile home lives independently: Yes marital status: single number of children: 0 number of grandchildren: 0 education level: high school current occupation: at [employer] pets and animals: Yes pets and animals: cat(s) Hx Recent Travel: No sexually active: No caffeine: Yes physical activity: none brooke/mandaeism: None special brooke needs: No working smoke detector in home: Yes fire extinguisher in home: Yes carbon monox detector in home: No firearms in home: Yes do you feel safe at home: Yes victim of physical abuse: No victim of emotional abuse: No victim of sexual abuse: No would you like helpful sources: No Have you lived/traveled outside [place] in past 30 days?: No Contact w/someone who lives/traveled outside US past 30 days?: No Exposure to someone with infectious disease in past 14 days?: No Do you have a fever (greater than 100.4 F or 38 C)?: No Have you tested positive for COVID-19?: No Exposed to someone with COVID-19 in past 14 days?: No Do you have a sore throat?: No Do you have a cough?: No Do you have any weakness?: No Do you have any diarrhea?: No Are you experiencing any unusual bleeding?: No Do you have any muscle aches/pain?: No Do you have any abdominal pain?: No Are you experiencing loss of taste or smell?: No Other Medical History Have you received the Flu Vaccine for this season: Yes Have you received the Pneumonia Vaccine: Yes Review of Systems Review of Systems Review of systems (narrative): Negative *Cardiovascular Comments: Negative *Gastrointestinal Comments: Negative *Genitourinary Comments: Negative *Musculoskeletal Comments: Negative *Neurologic Comments: Negative Meds Home Medications and Allergies Home Medications ?Medication ?Instructions ?Recorded ?Confirmed ?Type acetaminophen 325 mg tablet 650 mg (2 x 325 mg) PO QID PRN 03/03/23 06/26/25 Rx (Tylenol) pain #120 tabs ublituximab-xiiy 25 mg/mL 150 mg IV Q24W 06/27/24 11/12/25 History intravenous solution alendronate 70 mg tablet (Fosamax) 70 mg PO WEEKLY #5 tabs 12/03/24 06/26/25 Rx albuterol sulfate 90 mcg/actuation 2 puff inhalation Q4-6H PRN 12/31/24 06/26/25 Rx aerosol inhaler shortness of breath or wheezing #8.5 grams ondansetron 4 mg disintegrating 4 mg PO Q8H PRN nausea and 12/31/24 06/26/25 Rx tablet vomiting #20 tabs cyanocobalamin (vitamin B-12) See Rx Instructions .Route 06/03/25 06/26/25 Rx 1,000 mcg/mL injection solution .COMPLEX #1 mL fluoxetine 40 mg capsule 40 mg PO DAILY #90 caps 06/03/25 06/26/25 Rx ibuprofen 800 mg tablet See Rx Instructions .Route 06/03/25 06/26/25 Rx .COMPLEX #100 tabs fluoxetine 20 mg capsule (Prozac) 60 mg (3 x 20 mg) PO DAILY #90 caps 06/25/25 06/26/25 Rx terbinafine HCl 250 mg tablet 250 mg PO DAILY toenail fungus #30 06/26/25 06/26/25 Rx tabs New Prescriptions to Start Prescriptions: Allergies Allergy/AdvReac Type Severity Reaction Status Date / Time clarithromycin (From BIAXIN) Allergy Intermediate I-RASH Verified 06/26/25 13:03 erythromycin base Allergy Intermediate I-RASH Verified 06/26/25 13:03 (ERYTHROMYCIN BASE) codeine (CODEINE) Allergy Unknown NA-NAUSEA Verified 06/26/25 13:03 Penicillins (PENICILLINS) Allergy Unknown NA-NAUSEA Verified 06/26/25 13:03 Exam *Routine HEENT Exam Head: Present normocephalic Eye: Present EOMI and PERRL ENT: Present mucous membranes moist *Routine Neck Exam Neck: Present supple *Routine Respiratory Exam Respiratory: Present CTA bilaterally *Routine Cardiovascular Exam Cardiovascular: Present RRR *Routine Abdominal Exam Abdominal: Present soft and normoactive bowel sounds; Absent tenderness *Routine Rectal Exam Rectal:: deferred *Routine Genitalia Exam Genitalia:: deferred *Routine Extremities Exam Extremities: Absent cyanosis, clubbing or edema *Routine Skin Exam Skin: Present warm; Absent rash *Routine Neurological Exam Neurological: Present alert and oriented X3 Assessment and Plan *Assessment and plan (1) Dysphagia: Status: Acute Category: Medical Code(s): R13.10 - Dysphagia, unspecified (2) Choking: Status: Acute Category: Medical Code(s): T17.308A - Unspecified foreign body in larynx causing other injury, initial encounter (3) Globus sensation: Status: Acute Category: Medical Code(s): R09.A2 - Foreign body sensation, throat (4) Weight loss: Status: Acute Category: Medical Code(s): R63.4 - Abnormal weight loss (5) Regurgitation of food: Status: Acute Category: Medical Code(s): R11.10 - Vomiting, unspecified Plan A/P: 1. Dysphagia, choking, globus sensation, regurgitation of food and weight loss is the preprocedural diagnosis. The patient will be anesthetized/sedated using MAC sedation. The patient has been seen and examined. Cardiac and lung assessment prior to the examination is stable. Proceed with planned diagnostic EGD.
[2025-06-25 13:27] VITALS: BMI 22.2
--- NOTE | 2025-06-26 07:08 | P.PCN_ITS ---
[facility] Procedure Note Date: 06/26/25 Time: 13:59 Procedure Note:: Upper Endoscopy Procedure Report: Esophagogastroduodenoscopy with cold biopsies and TTS balloon dilation Endoscopost: Arnulfo Olson II, MD Referring Physician: Mickey Maldonado MD Date of Procedure: June 26, 2025 Equipment: Olympus GIF-1100 standard upper endoscope Sedation: MAC sedation Indications: Mrs. Hernández is a 64-year-old female who is here for diagnostic EGD. Over the last several months the patient has been struggling with dysphagia and reports choking on food and food getting hung up when she swallows. This can also occur with liquids. She will sometimes have to regurgitate. She will also sometimes get globus sensation when she is not eating. She has lost almost 20 pounds since the beginning of the summer. Her maternal aunt had throat cancer in her 60s. The patient has never had an upper endoscopy. The examination is deemed medically necessary for diagnostic EGD. Procedure: Prior to the procedure, a history and physical exam was performed, and patient's medications and allergies were reviewed. The risks, benefits and alternatives of the sedation and procedure were discussed with the patient. All questions were answered and informed consent was obtained. The patient was brought to the procedure room. Patient identification and proposed procedure were verified by the physician and the nurse. The patient was placed in a left lateral decubitus position and the scope was passed under direct vision. Throughout the procedure, the patient's blood pressure, pulse, and oxygen saturations were monitored continuously. The upper GI endoscopy was accomplished without difficulty. The patient tolerated the procedure well. Findings: The scope was passed directly into the upper esophagus and advanced to the third portion of the duodenum. The post bulbar duodenum, ampulla and duodenal bulb were normal with normal mucosa and conniventes. 2 cold biopsies were taken from the second portion of the duodenum for the disaccharidase assay. Cold biopsies were taken from the duodenal bulb to rule out celiac disease. The scope was withdrawn through a normal duodenal bulb and pylorus into the stomach. There was some linear reactive gastropathy of the antrum. The body and fundus of the stomach were normal. Upon retroflexion there was no hiatal hernia. Cold biopsies were taken from the antrum. The scope was then withdrawn into the esophagus. There was no evidence of reflux esophagitis or Godwin's. There were no rings, strictures, webs, corrugation or furrowing. There were tertiary contractions and evidence of moderate esophageal dysmotility. The entire esophagus was dilated to 60 Upper Sorbian/20 mm with a TTS hydrostatic balloon. There was some resistance at the cricopharyngeus. The remainder of the esophageal mucosa was normal. Impression: 1. Moderate esophageal dysmotility with cricopharyngeal spasm 2. Linear reactive gastropathy of antrum Plan: I will follow-up the biopsies and disaccharidase assay. I will discuss the findings with the patient and family. This is primarily esophageal dysmotility (especially since it occurs with liquids).
[2025-06-26 13:05] VITALS: BP 118/67; PULSE 70; RESP 18; TEMP 36.8; O2SAT 96
[2025-06-26] MEDS: LACTATED RINGERS 1000ML 1,000 ML 50 ML IV ×2 (13:12→13:13)
--- NOTE | 2025-06-26 13:43 | EXP.ANES.CKL ---
[facility] Disclaimer: The information contained in this section may have been updated after the patient was seen, as this information can be updated by other users. Medical History Abdominal bloating Weight loss, anorexia, bloating Unintentional weight loss Headache Asymptomatic Chronic otitis media with serous effusion Tinnitus Hearing loss in left ear Generalized anxiety disorder Recurrent major depression resistant to treatment Seizures Precipitated by blood harrell, described as alteration in awareness, confusion, hallucinations in the setting of abnormal EEG, brain MRI. Currently asymptomatic since sometime in 2021. No evidence of epileptic etiology. Multiple sclerosis Relapsing remitting MS diagnosed 11/2011 with probable onset 2006. Abnormal MRI, LP with OCPs greater than 5 present in CSF not serum, clinical presentation. Prior evaluation by Dr. Shine Tapia and Poly Aguirre. Currently on IV ublituximab every 6 months. Vitamin B12 deficiency Breast cancer SOB (shortness of breath) CODI (obstructive sleep apnea) Tobacco abuse Half a pack per day Chest pain Surgical History History of tonsillectomy H/O lumpectomy Family History Father Cancer Grandfather , paternal FHx: mental illness completed suicide by drowning. -he was sick; had been complaining of side pain -they sent him to [facility] for a while -the day of discharge he completed suicide Social History Smoking Status: Current every day smoker tobacco type: cigarettes second hand exposure: No alcohol intake: never counseling given: No substance use type: denies use counseling given: No current occupational status: employed and other details: works at [employer] in the last 8 weeks?: None adopted: No caregiver/support person: No foster care: No household members: none housing: other details: mobile home lives independently: Yes marital status: single number of children: 0 number of grandchildren: 0 education level: high school current occupation: at [employer] pets and animals: Yes pets and animals: cat(s) Hx Recent Travel: No sexually active: No caffeine: Yes physical activity: none brooke/mormon: None special brokoe needs: No working smoke detector in home: Yes fire extinguisher in home: Yes carbon monox detector in home: No firearms in home: Yes do you feel safe at home: Yes victim of physical abuse: No victim of emotional abuse: No victim of sexual abuse: No would you like helpful sources: No Have you lived/traveled outside US in past 30 days?: No Contact w/someone who lives/traveled outside US past 30 days?: No Exposure to someone with infectious disease in past 14 days?: No Do you have a fever (greater than 100.4 F or 38 C)?: No Have you tested positive for COVID-19?: No Exposed to someone with COVID-19 in past 14 days?: No Do you have a sore throat?: No Do you have a cough?: No Do you have any weakness?: No Do you have any diarrhea?: No Are you experiencing any unusual bleeding?: No Do you have any muscle aches/pain?: No Do you have any abdominal pain?: No Are you experiencing loss of taste or smell?: No [facility] Anesthesia Checklist Patient Identification Patient Identification: Arm Band Structural Data Admitted From: Home Planned Operative Procedure/s: EGD Consent for Planned Operative Procedure(s) Verified: Yes Verified Documents: Surgical Consent and History and Physical NPO Status Verified Time NPO: 00:00 Additional verifications Anesthesia Reactions: No Airway Assessment Mallampati Score:: Class II C-Spine Mobility Assessed: Yes TMJ Mobility Assessed: Yes Dentition: Poor Dentition Neurological Assessment Level of Consciousness: Awake, Alert and Appropriate Anesthesia Plan Anesthesia Risk discussed: Yes Anesthesia Plan: Verified ASA Class: II Anesthesia Type: MAC
[2025-06-26 14:01] VITALS: BP 99/54; PULSE 73; RESP 16; TEMP 36.1; O2SAT 94
[2025-06-26 14:11] VITALS: BP 94/58; PULSE 66; RESP 17; TEMP 36.1; O2SAT 96
[2025-06-26 14:21] VITALS: BP 90/64; PULSE 71; RESP 17; TEMP 36.1; O2SAT 97
[2025-06-26 14:31] VITALS: BP 120/63; PULSE 69; RESP 18; TEMP 36.1; O2SAT 97
[2025-07-01 15:10] LABS: Interpretation Notes (.); Lactase 1.57 (>/= 14.0); Maltase 42.17 (>/= 110.0); Palatinase 4.04 (>/= 8.5); Reference Notes (.); Sucrase 8.97 (>/= 25.0)
== END 2025-06-26 14:50 | disposition home or self-care (01) ==
PROVIDERS: PCP Family Medicine; Visit Provider Internal Medicine Gastroenterology
PROC: 0DJ08ZZ Inspection of Upper Intestinal Tract, Via Natural or Artificial Opening Endoscopic (ICD-10-PCS; CPT 43239; principal; 2025-06-26 13:30)
DX: K22.4 Dyskinesia of esophagus (principal); K31.89 Other diseases of stomach and duodenum; R63.4 Abnormal weight loss; R11.10 Vomiting, unspecified; F17.210 Nicotine dependence, cigarettes, uncomplicated; Z68.22 Body mass index [BMI] 22.0-22.9, adult
CPT/HCPCS: 43239; 43249; 82657; 88305; C1726; J2003; J2704; J7120